=== PATIENT | female | born 1935 | race Caucasian/White ===

== ENCOUNTER 2017-05-30 10:25 | Inpatient (IN) ==
--- NOTE | 2017-05-30 10:28 | Emergency Department Note ---
Disposition Clinical Impression: Chest pain Qualifiers: Chest pain type: unspecified Qualified Code(s): R07.9 - Chest pain, unspecified ST elevation myocardial infarction (STEMI) Qualifiers: Involved coronary artery: LAD coronary artery Qualified Code(s): I21.02 - ST elevation (STEMI) myocardial infarction involving left anterior descending coronary artery Disposition: Admitted As Inpatient Condition: Fair General Adult HPI - General Chief complaint: ED Chest Pain Stated complaint: chest pain Time Seen by Provider: 05/30/17 10:27 - Related Data Home Medications Medication Instructions Recorded Confirmed No Known Home Drugs 05/30/17 05/30/17 Allergies Allergy/AdvReac Type Severity Reaction Status Date / Time ezetimibe [From Zetia] AdvReac Cramping Verified 05/30/17 10:58 of the Muscles fenofibrate [From Tricor] AdvReac Cramping Verified 05/30/17 10:58 of the Muscles rosuvastatin [From Crestor] AdvReac Cramping Verified 05/30/17 10:58 of the Muscles simvastatin AdvReac Cramping Verified 05/30/17 10:58 of the Muscles Course Vital Signs O2 Sat by Pulse Oximetry 99 05/30/17 10:37 Temperature 97.5 F L 05/30/17 15:59 Pulse Rate 76 05/30/17 18:00 Respiratory Rate 20 05/30/17 18:00 Blood Pressure 107/49 05/30/17 18:00 O2 Sat by Pulse Oximetry 96 05/30/17 18:00 Oxygen Delivery Oxygen Delivery Nasal Cannula Medical Decision Making - Lab Data Result diagrams: 05/30/17 10:36 05/30/17 10:36 Lab Results 05/30/17 05/30/17 05/30/17 Range/Units 10:36 10:36 10:36 WBC 7.8 (4.3-11.1) K/mcL RBC 4.63 (3.82-4.97) M/mcL Hgb 14.5 (11.5-15.4) g/dL Hct 44.0 (35.3-44.9) % MCV 95.0 (83.0-100.0) fL MCH 31.3 (28.0-33.3) pg MCHC 33.0 (31.6-35.5) g/dL RDW 12.3 (11.5-14.5) % Plt Count 198 (140-400) K/mcL MPV 11.6 (9.4-12.4) fL Immature Gran % 0.3 (0-4) % Seg Neutrophils % 49.6 % Lymphocytes % 40.9 % Monocytes % 7.9 % Eosinophils % 0.8 % Basophils % 0.5 % Neutrophils # 3.9 (1.6-8.9) K/mcL Lymphocytes # 3.2 (0.6-4.6) K/mcL Monocytes # 0.6 (0.0-1.3) K/mcL Eosinophils # 0.1 (0.0-0.6) K/mcL Basophils # 0.0 (0.0-0.2) K/mcL PT 11.9 (9.4-12.1) Seconds INR 1.1 APTT 26.4 (26.0-36.0) Seconds Sodium 138 (136-145) mEq/L Potassium 3.9 (3.5-5.1) mEq/L Chloride 103 (98-107) mEq/L Carbon Dioxide 24 (23-29) mEq/L BUN 17 (8-23) mg/dL Creatinine 0.69 (0.60-1.20) mg/dL Est GFR ( Amer) > 60 (> 60) Est GFR (Non-Af Amer) > 60 (> 60) BUN/Creatinine Ratio 25 (6-26) Glucose 184 H (70-105) mg/dL POC Glucose (58-89) Calculated Osmolality 292 (280-300) Calcium 9.6 (8.6-10.3) mg/dL Magnesium 2.2 (1.6-2.6) mg/dL Troponin I (< 0.04) ng/mL 05/30/17 05/30/17 Range/Units 10:36 11:06 WBC (4.3-11.1) K/mcL RBC (3.82-4.97) M/mcL Hgb (11.5-15.4) g/dL Hct (35.3-44.9) % MCV (83.0-100.0) fL MCH (28.0-33.3) pg MCHC (31.6-35.5) g/dL RDW (11.5-14.5) % Plt Count (140-400) K/mcL MPV (9.4-12.4) fL Immature Gran % (0-4) % Seg Neutrophils % % Lymphocytes % % Monocytes % % Eosinophils % % Basophils % % Neutrophils # (1.6-8.9) K/mcL Lymphocytes # (0.6-4.6) K/mcL Monocytes # (0.0-1.3) K/mcL Eosinophils # (0.0-0.6) K/mcL Basophils # (0.0-0.2) K/mcL PT (9.4-12.1) Seconds INR APTT (26.0-36.0) Seconds Sodium (136-145) mEq/L Potassium (3.5-5.1) mEq/L Chloride (98-107) mEq/L Carbon Dioxide (23-29) mEq/L BUN (8-23) mg/dL Creatinine (0.60-1.20) mg/dL Est GFR ( Amer) (> 60) Est GFR (Non-Af Amer) (> 60) BUN/Creatinine Ratio (6-26) Glucose (70-105) mg/dL POC Glucose 161 H (58-89) Calculated Osmolality (280-300) Calcium (8.6-10.3) mg/dL Magnesium (1.6-2.6) mg/dL Troponin I 0.09 H* (< 0.04) ng/mL Critical Care Time Critical Care Time: Yes Total Critical Care Time: 30 Attestation: The high probability of a clinically significant, sudden or life threatening deterioration of the [] system(s) required my full and direct attention, intervention and personal management. The aggregate critical care time was [] minutes. This time is in addition to time spent performing reported procedures but includes the following: [] Data Review and interpretation [] Patient assessment and monitoring of vital signs [] Documentation [] Medication orders and management Attestation Statement - Attestation Attestation: I examined this patient and my medical decision-making was reviewed with the Resident Physician. I agree with the documented findings, disposition and treatment plan as described except to the extent set forth below. [id number] time provided Patient arrives by EMS from home. She complains of chest pain that radiated to both arms. Associated nausea and vomiting. No previous history of coronary artery disease. She appears in no acute distress on exam. Family at bedside. Initial ECG shows non specific changes w/o STEMI pattern 10:48: The patient had ongoing chest pain. A repeat ECG was obtained. This does show ST segment elevation in leads V2 through V4. STEMI alert activated
[2017-05-30] MEDS ORDERED: Nitroglycerin 0.4 MG TAB.SUBL SL ONE (10:39)
[2017-05-30] MEDS ORDERED: Aspirin 81 MG TAB.CHEW PO STA (10:41)
--- NOTE | 2017-05-30 10:46 | Emergency Department Note ---
Disposition Clinical Impression: Chest pain Qualifiers: Chest pain type: unspecified Qualified Code(s): R07.9 - Chest pain, unspecified ST elevation myocardial infarction (STEMI) Qualifiers: Involved coronary artery: LAD coronary artery Qualified Code(s): I21.02 - ST elevation (STEMI) myocardial infarction involving left anterior descending coronary artery Disposition: Admitted As Inpatient Condition: Fair Time of Disposition: 11:03 Chest Pain HPI - General Chief Complaint: ED Chest Pain Stated Complaint: chest pain Time Seen by Provider: 05/30/17 10:27 Source: patient Mode of arrival: EMS Limitations: no limitations Vital Signs Reviewed: Yes Nursing Notes Reviewed: Yes - History of Present Illness HPI Narrative: Patient is an 81-year-old female who presents to [facility] ED with a chief complaint of chest pain. States this started around 9 AM this morning when she was sitting on the couch. States the pain is across her chest and down both arms. Admits to nausea and has one episode of vomiting while in our emergency department. Patient states she has always been pretty healthy and has not required any prescription medication. Family states they gave her 2 baby aspirin after she started having symptoms this morning. 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 Denies: dyspnea, fever Treatments prior to arrival chest pain: aspirin - Related Data Home Medications Medication Instructions Recorded Confirmed No Known Home Drugs 05/30/17 05/30/17 Allergies Allergy/AdvReac Type Severity Reaction Status Date / Time ezetimibe [From Zetia] AdvReac Cramping Verified 05/30/17 10:58 of the Muscles fenofibrate [From Tricor] AdvReac Cramping Verified 05/30/17 10:58 of the Muscles rosuvastatin [From Crestor] AdvReac Cramping Verified 05/30/17 10:58 of the Muscles simvastatin AdvReac Cramping Verified 05/30/17 10:58 of the Muscles All systems ED: reviewed and negative except as stated. Chest Pain PMH - Past Medical History Medical history: Reports: no medical history Physical Exam - General Limitations: no limitations General appearance: alert, anxious - Head Head exam: atraumatic, normocephalic, normal inspection - Eye Eye exam: Present: normal appearance, EOMI - ENT ENT exam: normal exam, normal oropharynx, mucous membranes moist - Neck Neck exam: Present: trachea midline - Chest Chest inspection: Present: normal inspection, symmetric chest wall rise - Respiratory Respiratory exam: Present: normal lung sounds bilaterally - Cardiovascular Cardiovascular exam: Present: regular rate, normal rhythm, normal heart sounds - Abdominal Exam Abdominal exam: Present: soft, Non-Tender. Absent: tenderness, distention, guarding, rebound, rigidity - Extremities Exam Extremities exam: Present: normal inspection, full ROM. Absent: tenderness, pedal edema - Back Exam Back exam: Present: normal inspection, full ROM. Absent: tenderness - Neurological Exam Neurological exam: Present: alert - Psychiatric Psychiatric exam: Present: normal affect, normal mood - Skin Skin exam: Present: warm, dry, intact, normal color Course Course Narrative: Patient seen and examined. Patient having active chest pain. Initial EKG shows what appears to be a new right bundle branch block compared with her prior EKG. Cardiopulmonary workup initiated. Another 2 baby aspirin given. One sublingual nitroglycerin given. While standing in the room, I noted what appeared to be some ST elevation on the monitor. I asked for a repeat EKG which shows elevation in V2 through V4. A STEMI alert was initiated. Patient became nauseated and vomited once. I discussed with the home paraprofessional Dr. Dye and patient will be taken to the [facility]. - Reevaluation(s) Reevaluation #1: Labs showed trop 0.09. No other abnormalities. Pt taken to cath lab technologist in stable condition. Time: 11:30 Vital Signs O2 Sat by Pulse Oximetry 99 05/30/17 10:37 Temperature 97.5 F L 05/30/17 15:59 Pulse Rate 76 05/30/17 18:00 Respiratory Rate 20 05/30/17 18:00 Blood Pressure 107/49 05/30/17 18:00 O2 Sat by Pulse Oximetry 96 05/30/17 18:00 Oxygen Delivery Oxygen Delivery Nasal Cannula Chest Pain - Medical Records Medical records reviewed: Yes I reviewed the patient's medical records. - Lab Data Lab results reviewed: Yes I reviewed the patient's lab results. Result diagrams: 05/30/17 10:36 05/30/17 10:36 Lab Results 05/30/17 05/30/17 05/30/17 Range/Units 10:36 10:36 10:36 WBC 7.8 (4.3-11.1) K/mcL RBC 4.63 (3.82-4.97) M/mcL Hgb 14.5 (11.5-15.4) g/dL Hct 44.0 (35.3-44.9) % MCV 95.0 (83.0-100.0) fL MCH 31.3 (28.0-33.3) pg MCHC 33.0 (31.6-35.5) g/dL RDW 12.3 (11.5-14.5) % Plt Count 198 (140-400) K/mcL MPV 11.6 (9.4-12.4) fL Immature Gran % 0.3 (0-4) % Seg Neutrophils % 49.6 % Lymphocytes % 40.9 % Monocytes % 7.9 % Eosinophils % 0.8 % Basophils % 0.5 % Neutrophils # 3.9 (1.6-8.9) K/mcL Lymphocytes # 3.2 (0.6-4.6) K/mcL Monocytes # 0.6 (0.0-1.3) K/mcL Eosinophils # 0.1 (0.0-0.6) K/mcL Basophils # 0.0 (0.0-0.2) K/mcL PT 11.9 (9.4-12.1) Seconds INR 1.1 APTT 26.4 (26.0-36.0) Seconds Sodium 138 (136-145) mEq/L Potassium 3.9 (3.5-5.1) mEq/L Chloride 103 (98-107) mEq/L Carbon Dioxide 24 (23-29) mEq/L BUN 17 (8-23) mg/dL Creatinine 0.69 (0.60-1.20) mg/dL Est GFR ( Amer) > 60 (> 60) Est GFR (Non-Af Amer) > 60 (> 60) BUN/Creatinine Ratio 25 (6-26) Glucose 184 H (70-105) mg/dL POC Glucose (58-89) Calculated Osmolality 292 (280-300) Calcium 9.6 (8.6-10.3) mg/dL Magnesium 2.2 (1.6-2.6) mg/dL Troponin I (< 0.04) ng/mL 05/30/17 05/30/17 Range/Units 10:36 11:06 WBC (4.3-11.1) K/mcL RBC (3.82-4.97) M/mcL Hgb (11.5-15.4) g/dL Hct (35.3-44.9) % MCV (83.0-100.0) fL MCH (28.0-33.3) pg MCHC (31.6-35.5) g/dL RDW (11.5-14.5) % Plt Count (140-400) K/mcL MPV (9.4-12.4) fL Immature Gran % (0-4) % Seg Neutrophils % % Lymphocytes % % Monocytes % % Eosinophils % % Basophils % % Neutrophils # (1.6-8.9) K/mcL Lymphocytes # (0.6-4.6) K/mcL Monocytes # (0.0-1.3) K/mcL Eosinophils # (0.0-0.6) K/mcL Basophils # (0.0-0.2) K/mcL PT (9.4-12.1) Seconds INR APTT (26.0-36.0) Seconds Sodium (136-145) mEq/L Potassium (3.5-5.1) mEq/L Chloride (98-107) mEq/L Carbon Dioxide (23-29) mEq/L BUN (8-23) mg/dL Creatinine (0.60-1.20) mg/dL Est GFR ( Amer) (> 60) Est GFR (Non-Af Amer) (> 60) BUN/Creatinine Ratio (6-26) Glucose (70-105) mg/dL POC Glucose 161 H (58-89) Calculated Osmolality (280-300) Calcium (8.6-10.3) mg/dL Magnesium (1.6-2.6) mg/dL Troponin I 0.09 H* (< 0.04) ng/mL - Radiology Data Radiology results reviewed: Yes I reviewed the patient's radiology results. - EKG Data EKG attestation: Yes I reviewed and interpreted this EKG. EKG results narrative: EKG done at 1032 shows normal sinus rhythm with a rate of 64 bpm. Incomplete right bundle branch block present. Left axis deviation. No ST elevation or depression. EKG done at 1046 shows normal sinus rhythm with a rate of [address] elevation noted in leads V2 through V4. Left axis deviation. Heart Score - Score History: Highly Suspicious Age: Greater than 65 Risk Factors: No risk factors known
[2017-05-30] MEDS ORDERED: Ondansetron 4 MG/2 ML VIAL IVP PRN ×2 (10:50→14:10)
[2017-05-30] MEDS ORDERED: *HR* Ticagrelor 90 MG TABLET ONE (10:50)
[2017-05-30] MEDS ORDERED: 0.9 % Sodium Chloride 1,000 ML ONE ×2 (10:50→11:15)
[2017-05-30] MEDS ORDERED: Aspirin 81 MG TAB.CHEW ONE (10:50)
[2017-05-30] MEDS ORDERED: *HR* Heparin 5,000 UNIT/ML VIAL ONE (10:50)
[2017-05-30] MEDS ORDERED: *HR* Morphine 2 MG/ML SYRINGE IVP ONE ×2 (10:51→11:12)
[2017-05-30 10:53] LABS: Basophils % 0.5 %; Eosinophils # 0.1 K/mcL (0.0-0.6); Eosinophils % 0.8 %; Hemoglobin 14.5 g/dL (11.5-15.4); Immature Granulocytes % 0.3 % (0-4); Lymphocytes # 3.2 K/mcL (0.6-4.6); Lymphocytes % 40.9 %; Mean Corpuscular Hemoglobin 31.3 pg (28.0-33.3); Mean Platelet Volume 11.6 fL (9.4-12.4); Monocytes # 0.6 K/mcL (0.0-1.3); Monocytes % 7.9 %; Neutrophils # 3.9 K/mcL (1.6-8.9); Platelet Count 198 K/mcL (140-400); Red Blood Count 4.63 M/mcL (3.82-4.97); Red Cell Distribution Width 12.3 % (11.5-14.5); Segmented Neutrophils % 49.6 %
[2017-05-30] MEDS ORDERED: *HR* Heparin 5,000 UNIT/ML VIAL IVP ONE (10:53)
[2017-05-30] MEDS ORDERED: *HR* Heparin 5,000 UNIT/ML VIAL IVP PRN ×2 (10:53)
[2017-05-30] MEDS ORDERED: 0.9 % Sodium Chloride 1,000 ML IVC ONE (10:55)
[2017-05-30 11:00] LABS: Activated Partial Thrombo Time 26.4 Seconds (26.0-36.0)
[2017-05-30] MEDS ORDERED: Heparin 25,000 UNIT/500 ML D5W 25,000 UNIT/500 ML BAG IVC SCH (11:00)
[2017-05-30 11:08] LABS: BUN/Creatinine Ratio 25 (6-26); Blood Urea Nitrogen 17 mg/dL (8-23); Calcium 9.6 mg/dL (8.6-10.3); Carbon Dioxide 24 mEq/L (23-29); Chloride 103 mEq/L (98-107); Glucose 184 mg/dL (70-105); Magnesium 2.2 mg/dL (1.6-2.6); Osmolality,Calculated 292 (280-300); Potassium 3.9 mEq/L (3.5-5.1); Sodium 138 mEq/L (136-145); eGFR For African Americans > 60 (> 60); eGFR For Non-African Americans > 60 (> 60)
[2017-05-30] MEDS ORDERED: Heparin 1,000 UNITS/500 mL 500 ML ONE (11:15)
[2017-05-30] MEDS ORDERED: *HR* Heparin 10,000 UNIT/10 ML VIAL ONE (11:15)
[2017-05-30] MEDS ORDERED: *HR* Midazolam HCl 2 MG/2 ML VIAL ONE (11:16)
[2017-05-30] MEDS ORDERED: *HR* FentaNYL (PF) 100 MCG/2 ML VIAL ONE (11:17)
[2017-05-30] MEDS ORDERED: ISOVUE-370 200 ML INFUS..BTL IV ONE (11:24)
[2017-05-30] MEDS ORDERED: Nitroglycerin 1,000 MCG/10 ML VIAL IV ONE (11:27)
[2017-05-30 11:35] LABS: INR 1.1; Prothrombin Time 11.9 Seconds (9.4-12.1)
--- NOTE | 2017-05-30 11:42 | Cardiology History & Physical ---
Date of Encounter: 05/30/17 Time of Encounter: 11:20 Assessment and Plan (1) ST elevation myocardial infarction (STEMI) Current Visit: Yes Status: Acute The assessment and plan as outlined above was discussed with the patient and/or family members who expressed understanding and agreement. All questions were answered. Pt repeat EKG shows acute st segment elevation ant leads compared to initial EKG , discussed risks, benefits LHC with and daughter at bedside, pt is sedated, will proceed with emergent LHC/poss. Pre load with Brillinta 180 mg po now. Qualifiers: Involved coronary artery: LAD coronary artery Qualified Code(s): I21.02 - ST elevation (STEMI) myocardial infarction involving left anterior descending coronary artery Code(s): I21.3 - ST elevation (STEMI) myocardial infarction of unspecified site SNOMED Code(s): 367088114 (2) Hyperlipidemia Current Visit: Yes Status: Chronic The assessment and plan as outlined above was discussed with the patient and/or family members who expressed understanding and agreement. All questions were answered. Pt has failed multiple medical tx for hyperlipidemia, intolerant to statins, may be a candidate for Rapatha Qualifiers: Hyperlipidemia type: mixed hyperlipidemia Qualified Code(s): E78.2 - Mixed hyperlipidemia History of Present Illness Chief complaint: chest pain HPI: Ms. Mcgovern is a 81 year old female who presented to the ER with complains of sudden onset of 10/10 mid sternal chest pain, radiating into both arms, starting while at rest, lasting fifteen minutes before she callled the squad, Chest pain was initially reduced from 10/10 to 5/10 with one sl ntg. She is still experiencing 4/10 chest pressure, weight like sensation, which has improved but not resolved with medical tx. Initial EKG showed non-specific ST T wave changes, second EKG shows new ST segment elevation V2 through V 5, consistent with acute ant HI. Risks and benefits discussed, recommend emergent LHC/possible PCI as primary tx for STEMI, pt agrees to proceed. She has known risk factors, including hyperlipidemia,. 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) Medical history: no medical history, hyperlipidemia Psychiatric history: no psych history - Social History Smoking Status: Never smoker Smokeless Tobacco Status: No Alcohol use: none Drug use: none Medications and Allergies No Known Home Drugs 05/30/17 [History] 3 Allergy/AdvReac Type Severity Reaction Status Date / Time ezetimibe [From Zetia] AdvReac Cramping Verified 05/30/17 10:58 of the Muscles fenofibrate [From Tricor] AdvReac Cramping Verified 05/30/17 10:58 of the Muscles rosuvastatin [From Crestor] AdvReac Cramping Verified 05/30/17 10:58 of the Muscles simvastatin AdvReac Cramping Verified 05/30/17 10:58 of the Muscles ROS unobtainable: due to mental status (Pt received 10 mg morphine, very sleepy. ) All Systems Review: A 10-system review of systems was performed and is negative for pertinent findings except as documented above in the HPI. Physical Examination Vital Signs, Last 4 Hours Temp Pulse Resp BP Pulse Ox 05/30/17 11:26 66 18 153/75 97 05/30/17 11:08 53 16 139/75 98 05/30/17 10:59 98 05/30/17 10:57 70 30 141/80 97 05/30/17 10:38 97.6 F 66 28 164/93 99 05/30/17 10:37 99 General: Conversant, Other (mild distresss secondary to chest pain. very sedated , arouses easily, unable to answer questions. ) HEENT: Atraumatic, Normocephaly Neck: No JVD Cardiac: Reg Rate and Rhythm, Normal S1 and S2 Lungs: Normal Breath Sounds Neuro: No focal deficits noted, Other (very somnolent, awakens, follows commands , drifts back to sleep. ) Abdomen: Soft, Non-Tender Skin: No rashes noted on visualized skin Musculoskeletal: No Chest Wall Tenderness Extremities: No Clubbing, No Cyanosis, No Edema, Normal Pulses Results 05/30/17 10:36 05/30/17 10:36 Lab Results 05/30/17 05/30/17 05/30/17 10:36 10:36 10:36 WBC 7.8 Hgb 14.5 Hct 44.0 Plt Count 198 APTT 26.4 Sodium 138 Potassium 3.9 Chloride 103 Carbon Dioxide 24 BUN 17 Creatinine 0.69 Glucose 184 H Calcium 9.6 Magnesium 2.2 Troponin I 05/30/17 10:36 WBC Hgb Hct Plt Count APTT Sodium Potassium Chloride Carbon Dioxide BUN Creatinine Glucose Calcium Magnesium Troponin I 0.09 H* - EKG Interpretation EKG results cardiology: personally reviewed
[2017-05-30] MEDS ORDERED: Ondansetron 4 MG/2 ML VIAL ONE ×2 (12:42→14:14)
--- NOTE | 2017-05-30 12:44 | Invasive Diagnostic Lab Proc ---
Name: Sonam Mcgovern Date of Study: 05/30/2017 Date: 1935 Ht: 65.0in Medical Record#: [id number] Age: 81 Wt: 125.66lb Gender: Female BSA: 1.62 Order #: [id number] BMI: 20.94 Physicians Procedure Physician: Dereje Dye DO Referring MD: Referring MD: Staff Name Position Time In Jacqui Araujo RN Monitor 11:45 AM Shaina Abel RT (R) Scrub 11:45 AM Nadine Chang RN Crew Boat Operator 11:45 AM Indications Indication STEMI Procedures Performed Procedure PRQ CARD REVASC CA 1 VSL Pre-Procedure Checklist Informed consent is complete signed and on chart. H&P is on chart. ID band is on and ID verified with patient. Patient NPO for procedure The procedure was described for the patient and questions were answered. ECG is on chart. Plan of Care Patient will tolerate the procedure without complications. Adequate level of comfort will be maintained. Hemodynamics will remain stable Patient will recover from procedure without complications. Respiratory function will be maintained. Cardiac rhythm will remain stable. Patient temperature will be maintained. Patient and/or family have verbalized understanding of the procedure. Patient Education Chief Complaint/Reason for Test: Cardiac Cath Developmental Category: Geriatric (65+ years) Developmentally Appropriate for Age: Yes Learning Barriers: None Education Needs: Procedure Education Method: Verbal Information Taught: Cardiac Cath Educational Evaluation: Able to repeat information Intravenous Access Time IV Size Location DC'd Fluid/Drip Rate Units RN 11:53 AM 18g 1 1/4" Patent On Arrival Rt Antecubital 0.9NaCl 100 ml/hr Nadine Chang RN 11:53 AM 20g 1 1/4" Patent On Arrival Lt Wrist Allergies simvastatin fenofibrate ezetimibe rosuvastatin Vital Signs Time BP (mmHg) HR (bpm) O2 Sat. RR (bpm) LOC 11:46 AM / % 4 = Oriented but drowsy 11:46 AM / % 3 = Answers simple questions/follows commands 12:01 PM / % 3 = Answers simple questions/follows commands 11:41 AM 126 / 81 75 93 % 11:47 AM 129 / 76 71 96 % 21 11:52 AM 113 / 75 65 95 % 22 11:56 AM 122 / 82 72 96 % 23 12:01 PM 122 / 82 80 96 % 11 12:06 PM 116 / 65 74 95 % 20 12:11 PM 124 / 77 77 96 % 22 12:16 PM 134 / 83 80 94 % 22 12:21 PM 131 / 74 77 95 % 22 Procedural Medications Time Medication Dose Units Method Given By 11:46 AM Oxygen 3 L/min nasal cannula Nadine Chang RN 11:48 AM Lidocaine 2% 10 ml Subcutaneous Dereje Dye DO ASA Classification: CLASS II- Mild systemic disease (i.e. well-controlled diabetes, hypertension, asthma, cigarette smoking) Shelley Score Preprocedure Postprocedure Activity 2- Moves 4 extremities sustained head lift Activity 2- Moves 4 extremities sustained head lift Circulation 2- SBP +/= 20 points of pre-anesthetic level Circulation 2- SBP +/= 20 points of pre-anesthetic level Consciousness 1- Responds to verbal stimuli drowsy Consciousness 2- Awake and alert oriented x 3 O2 Saturation 1- Needs O2 inhalation to maintain O2 saturation of 90% O2 Saturation 1- Needs O2 inhalation to maintain O2 saturation of 90% Respiratory 2- Able to deep breathe and cough well Respiratory 2- Able to deep breathe and cough well Total Score 8 Total Score 9 Contrast Agent: Isovue Diagnostic Contrast: 125 ml Total Contrast: 125 ml Fluoro Dose: 588 mGy Activated Clotting Time Time Seconds to Clot 11:59 AM 254 Procedure Log Time Note Enter By 11:18 AM Case Start 11:18 AM CathStat 11:40 AM Vitals capture started with the following parameters, Patient=Adult, Interval=5 min, Initial Gezhvaqk=568 mmHg, Deflation Rate=5 mmHg, Cuff placed on Right Arm 11:41 AM HR=75 bpm, BFSH=816/81 mmhg, SpO2=93.0 % 11:42 AM Recorded ECG: HR=66 Condition=Condition 1 11:44 AM Pressure channel 2 zeroed. 11:45 AM Pt arrived to casting house laborer 2 at 11:45 [email or web address] 11:45 AM Jacqui Araujo RN Position: Monitor Time in: 11:45 [email or web address] 11:45 AM Shaina Abel RT (R) Position: Scrub Time in: 11:45 [email or web address] 11:45 AM Nadine Chang RN Position: Crew Boat Operator Time in: 11:45 [email or web address] 11:45 AM Patient charges- Angio tray pack, Navilyst 3mm J, Pulse Oximetry and ACIST tubing and transducer [email or web address] 11:45 AM Case Delayed No [email or web address] 11:46 AM Hair removed from procedure site in procedure lab using clippers. Bilateral groin prepped with Chloraprep by Shaina Abel RT (R), then patient was draped. Skin intact. [email or web address] 11:46 AM Physician arrived 11:46 [email or web address] 11:46 AM ASA Class CLASS II- Mild systemic disease (i.e. well-controlled diabetes, hypertension, asthma, cigarette smoking) [email or web address] 11:46 AM Mervat completed [email or web address] 11:46 AM Procedure start :46 [email or web address] 11:46 AM Time: :46 Oxygen on at 3 L/min per nasal cannula by Nadine Chang RN [email or web address] 11:46 AM Time: 11:46 Patient comfortable and pain free: Yes [email or web address] 11:46 AM Time: 11:46LOC: 4 = Oriented but drowsy [email or web address] 11:46 AM Clinical Presentation: STEMI or equivalent [email or web address] 11:46 AM Time out performed according to hospital policy [email or web address] 11:46 AM in ED patient received 10mg IV Morphine, 3600units IV Heparin, 4mg IV Zofran, 180mg PO Brilinta, 324mg PO Aspirin [email or web address] 11:47 AM HR=71 bpm, AJBP=555/76 mmhg, SpO2=96.0 %, Resp=21 B/min, Comment=STEMI 11:48 AM Time: 11:48 10 ml Lidocaine 2% to right groin Subcutaneous Given by Dereje Dye DO [email or web address] 11:48 AM pt very sleepy upon arrival to lab, states she is having "some pain" [email or web address] 11:50 AM Access obtained by percutaneous puncture. 6Fr 10cm Terumo Laura sheath placed in right Femoral artery. [id number] [email or web address] 11:50 AM 6Fr FR 4 catheter inserted over the wire DNC [email or web address] 11:51 AM 0.035 145cm Navilyst 3mmJ wire [id number] [email or web address] 11:51 AM Recorded Pressure: LV, LV, HR=91, Condition=Condition 1 (Left Ventricle) LV -20/-20/-20, (Left Ventricle) LV 121/14/20 11:52 AM HR=65 bpm, JYHY=473/75 mmhg, SpO2=95 %, Resp=22 B/min 11:52 AM Bolus angiogram of left Ventricle complete: ml/sec for a total of 10 mls [email or web address] 11:53 AM RCA angiography performed in multiple views. [email or web address] 11:53 AM Catheter removed [email or web address] 11:53 AM 6Fr XB LAD 3.5 Cordis guide catheter was used to cannulate the PCI vessel successfully. reused? No [email or web address] 11:53 AM Inflation device was opened. [email or web address] 11:53 AM Lesion found in Mid RCA. Pre Stenosis: 80 Pre RAYMUNDO Flow: [email or web address] 11:55 AM Guide catheter removed intact. [email or web address] 11:56 AM 6Fr JL4 Cordis guide catheter was used to cannulate the PCI vessel successfully. reused? No [email or web address] 11:56 AM HR=72 bpm, STYE=735/82 mmhg, SpO2=96.0 %, Resp=23 B/min 11:57 AM LCA angiography performed in multiple views. [email or web address] 11:57 AM Recorded Pressure: Ao, Ao, HR=73, Condition=Condition 1 (Aorta) Ao -20/-20/-20, (Aorta) Ao 139/67/97 11:57 AM Right Coronary, Right Posterior Descending Arteries with Right Posterolateral and Acute Marginal branches with 80 % stenosis. If graft is supplying this area, 0 % stenosis [email or web address] 11:58 AM Lesion found in Proximal LAD. Pre Stenosis: 70 Pre RAYMUNDO Flow: [email or web address] 11:58 AM Lesion found in Mid LAD. Pre Stenosis: 90 Pre RAYMUNDO Flow: [email or web address] 11:59 AM Proximal Left Anterior Descending Coronary Artery with 70% stenosis. If graft is supplying this territory, 0 % stenosis. [email or web address] 11:59 AM Mid/Distal Left Anterior Descending Coronary Artery and diagonal branches with 90% stenosis. If graft is supplying this area, 0 % stenosis [email or web address] 11:59 AM At 11:59 the ACT was 254 seconds. [email or web address] 12:00 PM 2.25mm x 12mm Synergy drug-eluting stent across target lesion- successful Lot #[id number] [email or web address] 12:00 PM Recorded Pressure: Ao, Ao, HR=84, Condition=Condition 1 (Aorta) Ao -20/-20/-20, (Aorta) Ao 147/72/105 12:01 PM HR=80 bpm, IEVF=855/82 mmhg, SpO2=96.0 %, Resp=11 B/min 12:01 PM Time: 11:46 Patient comfortable and pain free: Yes [email or web address] 12:01 PM Time: 11:46LOC: 3 = Answers simple questions/follows commands [email or web address] 12:03 PM Stent deployed @ 12 kiay for 27 seconds [email or web address] 12:04 PM Recorded Pressure: Ao, Ao, HR=80, Condition=Condition 1 (Aorta) Ao -20/-20/-20, (Aorta) Ao 136/74/101 12:04 PM Stent balloon reinflated @ 10 kiya for 16 seconds [email or web address] 12:04 PM Stent delivery system removed intact. [email or web address] 12:06 PM HR=74 bpm, CXYP=765/65 mmhg, SpO2=95.0 %, Resp=20 B/min 12:07 PM 2.25mm x 16mm Synergy drug-eluting stent across target lesion- successful Lot #[id number] [email or web address] 12:09 PM Stent deployed @ 16 kiya for 17 seconds [email or web address] 12:10 PM Stent balloon reinflated @ 16 kiya for 10 seconds [email or web address] 12:11 PM HR=77 bpm, HHFZ=215/77 mmhg, SpO2=96.0 %, Resp=22 B/min, Comment=STEMI 12:14 PM 2.25mm x 8mm Synergy drug-eluting stent across target lesion- successful Lot #[id number] [email or web address] 12:15 PM Recorded Pressure: Ao, Ao, HR=80, Condition=Condition 1 (Aorta) Ao -20/-20/-20, (Aorta) Ao 158/81/114 12:15 PM Stent deployed @ 16 kiya for 15 seconds [email or web address] 12:16 PM HR=80 bpm, PRFZ=192/83 mmhg, SpO2=94.0 %, Resp=22 B/min 12:16 PM Time: 12:01 Patient comfortable and pain free: Yes [email or web address] 12:16 PM Time: 12:01LOC: 3 = Answers simple questions/follows commands [email or web address] 12:16 PM Stent balloon reinflated @ 16 kiya for 10 seconds [email or web address] 12:17 PM Stent balloon reinflated @ 18 kiya for 20 seconds [email or web address] 12:17 PM Stent delivery system removed intact. [email or web address] 12:19 PM Guide catheter removed intact. [email or web address] 12:19 PM Guide wire removed intact. [email or web address] 12:19 PM Procedure completed at 12:19 [email or web address] 12:20 PM Did you address RAYMUNDO flow and Dominance? Yes [email or web address] 12:20 PM Coronary Dominance: right [email or web address] 12:21 PM Sign out completed: Radiation Dose 588.01 mGy Fluoro Time: 9 Isovue 370 - 200ml contrast 125 ml given by Dereje Dye DO. Complications: NoneCardiac Rehab Consult needed: YesConfirmed administered medications: Yes [email or web address] 12:21 PM HR=77 bpm, UGBD=702/74 mmhg, SpO2=95 %, Resp=22 B/min 12:22 PM Isovue 370 - 200ml,1 Bottle(s) used. [email or web address] 12:22 PM Arterial sheath pulled, Mynx closure device used and was Successful [id number] S/N. [email or web address] 12:23 PM Estimated Blood Loss: less than 20cc [email or web address] 12:23 PM Post ECG NSR [email or web address] 12:23 PM Post Blood Pressure 131/74 [email or web address] 12:23 PM 12:23 Post Pulses Bilateral DP & PT 1+ [email or web address] 12:23 PM Information taught Cardiac Cath, PCI, and Mynx [email or web address] 12:23 PM Education needs Procedure, Plan of Care, and Responsibilities of Patient in Care [email or web address] 12:23 PM Learning barriers :None [email or web address] 12:23 PM Education Methods Verbal [email or web address] 12:23 PM Education evaluation Able to repeat information [email or web address] 12:24 PM Report given to Lesly SHEPHERD Pt taken to ICU Room #7. 12:24 [email or web address] 12:24 PM Plavix, Effient or Brilinta given Yes [email or web address] 12:27 PM Site status No bleeding/hematoma - Rt Groin as reported by Shaina Abel RT (R) at 12:26 [email or web address] 12:27 PM Opsite applied [email or web address] 12:27 PM Delay to floor No [email or web address] 12:27 PM Family placed in consult room. [email or web address] 12:30 PM Patient out of room: 12:30 [email or web address] Complications Complication None Hemodynamics Pressures Site Systolic/A Wave Diastolic/V Wave Mean LV -20 -20 -20 LV 121 14 20 AO -20 -20 -20 AO 139 67 97 AO -20 -20 -20 AO 147 72 105 AO -20 -20 -20 AO 136 74 101 AO -20 -20 -20 AO 158 81 114 Post Procedure Information Blood Pressure: 131/74 mmHg Rhythm: NSR Post procedural instructions were given Closure Device Time Device Success/Fail 05/30/2017 12:27:00 PM MynxGrip Successful Site Checks Time Location Status Staff Sheath In? Note 12:26 PM Rt Groin No bleeding/hematoma Shaina Abel RT (R) Pulses Time Site Pre-Procedure Post-Procedure Note 05/30/2017 11:54:00 AM Bilateral DP & PT 1+ 12:23:00 PM Bilateral DP & PT 1+ Updated by Jacqui Araujo RN on 05/30/2017 12:37:44 PM electronically signed on 05/30/2017 12:38:12 PM with status of Final
[2017-05-30] MEDS: 0.9 % Sodium Chloride 1,000 ML IVC SCH ×2 (14:52→23:53)
[2017-05-30] MEDS ORDERED: *HR* Promethazine 25 MG/ML VIAL ONE (21:19)
[2017-05-30] MEDS: *HR* Ticagrelor 90 MG TABLET PO SCH (21:24)
[2017-05-30] MEDS: *HR* Promethazine 25 MG/ML VIAL IVP PRN (21:25)
--- NOTE | 2017-05-30 22:31 | Pulmonology Consult Note ---
<LylesSven Jesus - Last Filed: 05/31/17 01:58> Date of Encounter: 05/31/17 Time of Encounter: 01:58 Assessment and Plan (1) ST elevation myocardial infarction (STEMI) Current Visit: Yes Status: Acute ST elevation [place] with troponin 0.09. Cardiac risk factors: age. Per cardiology: aspirin, brilanta coreg Patient on room air, vitals stable and in normal range. No complaints at this time. Will continue to monitor. Qualifiers: Involved coronary artery: LAD coronary artery Qualified Code(s): I21.02 - ST elevation (STEMI) myocardial infarction involving left anterior descending coronary artery History of Present Illness Consult date: 05/30/17 Requesting physician: Dereje Dye Chief complaint: chest pain History of present illness: Mrs. Mcgovern. an 81yo female, presents from home for evaluation of chest pain while at rest. Described as a heaviness radiating across her chest and down both arms. Associated with nausea and vomiting. Improved from 10/10 to 5/10 with SL nitro x1. PMH: none Medications: none EKG showed ST elevation in ahterior leads. Rt femoral LHC performed with stent to both proximal and mid LAD. She is in the ICU s/p hearth cath with critical care consult for evaluation and post-cath medical management. Past Med Surg Social Fam HX - Past Medical History Medical history: no medical history Psychiatric history: no psych history - Social History Smoking Status: Never smoker Smokeless Tobacco Status: No Alcohol use: none Drug use: none Medications and Allergies No Known Home Drugs 05/30/17 [History] 3 Allergy/AdvReac Type Severity Reaction Status Date / Time ezetimibe [From Zetia] AdvReac Cramping Verified 05/30/17 10:58 of the Muscles fenofibrate [From Tricor] AdvReac Cramping Verified 05/30/17 10:58 of the Muscles rosuvastatin [From Crestor] AdvReac Cramping Verified 05/30/17 10:58 of the Muscles simvastatin AdvReac Cramping Verified 05/30/17 10:58 of the Muscles All Systems: A 10-system review of systems was performed and is negative for pertinent findings except as documented above in the HPI. - Constitutional Constitutional: no anorexia, no chills, no fever(s), no headache(s), no weakness - Cardiovascular Cardiovascular: no chest pain, no diaphoresis, no dyspnea, no edema, no irregular heart rhythm, no leg edema, no lightheadedness - Respiratory Respiratory: no cough, no dyspnea, no hemoptysis, no wheezing - Gastrointestinal Gastrointestinal: no abdominal pain, no diarrhea, no heartburn, no hematemesis, no hematochezia, no melena, no nausea, no vomiting - Neurological Neurological: no confusion, no numbness, no tingling Physical Examination Vital Signs: Vital Signs, Last 4 Hours Temp Pulse Resp BP Pulse Ox 05/30/17 21:11 97.6 F 05/30/17 21:05 77 16 110/73 93 05/30/17 20:30 82 16 119/83 97 05/30/17 19:20 76 18 111/81 97 General appearance: no acute distress, alert, asleep (easily awoken) Eyes: nonicteric ENT: oropharynx moist Neck: supple Effort: normal Inspection: normal Auscultation: bilateral: clear Cardiovascular: regular rate and rhythm Gastrointestinal: normoactive bowel sounds, soft, tender, non-distended Integumentary: normal Extremities: no cyanosis, no edema, no clubbing, pink and warm, pulses normal Musculoskeletal: no deformities normal mental status, non-focal exam, pupils equal and round mood appropriate Results - Laboratory Findings CBC and BMP: 05/30/17 10:36 05/30/17 10:36 PT/INR, D-dimer PT 11.9 Seconds (9.4-12.1) 05/30/17 10:36 Abnormal lab findings: Abnormal lab results Glucose 184 mg/dL (70-105) H 05/30/17 10:36 POC Glucose 166 (58-89) H 05/30/17 12:53 Troponin I 0.09 ng/mL (< 0.04) H* 05/30/17 10:36 - Diagnostic Findings Chest x-ray: report reviewed, image reviewed - Clinical Findings Intake & Output: Intake & Output 05/30/17 05/30/17 05/30/17 07:59 15:59 23:59 Output Total 100 / 100 650 / 650 Balance -100 / -100 -650 / -650 Consult Discharge Plan - Plan Referrals: Kateryna Aldridge, ANESTHESIOLOGY FELLOW [Primary Care Provider] - <Coleman Wild - Last Filed: 05/31/17 21:29> Date of Encounter: 05/31/17 All Systems: A 10-system review of systems was performed and is negative for pertinent findings except as documented above in the HPI. Physical Examination Vital Signs: Vital Signs, Last 4 Hours Temp Pulse Resp BP Pulse Ox 05/31/17 12:28 99.5 F 05/31/17 11:00 76 14 118/49 97 05/31/17 09:00 84 12 113/69 96 Results - Laboratory Findings CBC and BMP: 05/31/17 05:14 05/31/17 05:14 PT/INR, D-dimer PT 11.9 Seconds (9.4-12.1) 05/30/17 10:36 Abnormal lab findings: Abnormal lab results Chloride 108 mEq/L (98-107) H 05/31/17 05:14 Glucose 131 mg/dL (70-105) H 05/31/17 05:14 POC Glucose 166 (58-89) H 05/30/17 12:53 Calcium 8.5 mg/dL (8.6-10.3) L 05/31/17 05:14 Troponin I 0.09 ng/mL (< 0.04) H* 05/30/17 10:36 - Clinical Findings Intake & Output: Intake & Output 05/30/17 05/31/17 05/31/17 23:59 07:59 15:59 Intake Total 1000 / 1000 50 / 50 60 / 60 Output Total 650 / 650 250 / 250 200 / 200 Balance 350 / 350 -200 / -200 -140 / -140 Weight 56.3 kg - Attending Attestation I saw and evaluated this patient and my medical decision-making was reviewed with the Resident Physician. I agree with the documented findings, disposition and treatment plan as described except to the extent set forth below. We independently had [id number] contact with the patient Patient seen and examined at bedside Labs, radiology, chart personally reviewed. Management was reviewed during multidisciplinary critical care rounds. AIRCRAFT TECHNICIAN:Patient is conscious oriented times x 3 Pulm: Patient CXR shows no acute process , patient has acute hypoxic respiratory failure most likely due to pulmonary vascular congestion with LVEF in ventriculogram is 40% will wean O2 supplementation as tolerated Cards:STEMI had stent , cardiac medication regimen according to cardiology FEN-GI: Cardiac diet . Renal:Labs and UOP reviewed ID: No acute issues Heme/Onc: Labs reviewed Endo: Glucose Monitored Integ/MSK: Skin Care per routine ICU Nursing Protocol to prevent ulcers. Lines: All lines examined without evidence of infection : Dispo: Transfer to stepdown according to cardiology CODE:Full Code
[2017-05-30 23:32] LABS: HDL Cholesterol 52 mg/dL (40-59); LDL Cholesterol,Direct 173 mg/dL (75-193); Triglycerides 69 mg/dL (< 150)
--- NOTE | 2017-05-31 04:04 | Pulmonology Progress Note ---
<Sven Lyles - Last Filed: 05/31/17 06:11> Date of Encounter: 05/31/17 Time of Encounter: 06:13 Assessment and Plan (1) Chest pain Current Visit: Yes Status: Acute Secondary to acute STEMI. Qualifiers: Chest pain type: unspecified Qualified Code(s): R07.9 - Chest pain, unspecified (2) ST elevation myocardial infarction (STEMI) Current Visit: Yes Status: Acute ST elevation [place] with initial troponin 0.09. Cardiac risk factors: age, HLD [facility] 05/30: LVEF 40%. MYAH to both mid and proximal LAD. Per cardiology: aspirin, brilanta coreg Patient on room air, vitals stable and in normal range. No complaints at this time. Will continue to monitor. Qualifiers: Involved coronary artery: LAD coronary artery Qualified Code(s): I21.02 - ST elevation (STEMI) myocardial infarction involving left anterior descending coronary artery (3) Hyperlipidemia Current Visit: Yes Status: Chronic Reported to be intolerant of statins. No home medications. Agree with consideration for Raphtha. Qualifiers: Hyperlipidemia type: mixed hyperlipidemia Qualified Code(s): E78.2 - Mixed hyperlipidemia Subjective Interval history: Mrs. Mcgovern. an 81yo female, presents from home for evaluation of chest pain while at rest. Described as a heaviness radiating across her chest and down both arms. Associated with nausea and vomiting. Improved from 10/10 to 5/10 with SL nitro x1. EKG showed ST elevation in ahterior leads. Rt femoral LHC performed with stent to both proximal and mid LAD. She is in the ICU s/p heart cath with critical care consult for evaluation and post-cath medical management. Hospital day 2 No acute events overnight. Patient remained comfortable with no complaints or questions. Objective PUL Vital signs: Last Vital Signs Temp 98.8 F 05/31/17 03:30 Pulse 76 05/31/17 03:30 Resp 16 05/31/17 03:30 BP 129/69 05/31/17 03:30 Pulse Ox 96 05/31/17 03:30 General appearance: no acute distress, alert Eyes: nonicteric ENT: oropharynx moist Neck: supple Effort: normal Auscultation: bilateral: clear Cardiovascular: regular rate and rhythm, other (No chest pain or arm pain.) Gastrointestinal: normoactive bowel sounds, soft, non-tender, non-distended Integumentary: normal Extremities: no cyanosis, no edema, no clubbing, pink and warm, pulses normal Musculoskeletal: no deformities normal mental status, non-focal exam, pupils equal and round mood appropriate Results - Laboratory Findings CBC and BMP: 05/31/17 05:14 05/31/17 05:14 PT/INR, D-dimer PT 11.9 Seconds (9.4-12.1) 05/30/17 10:36 Abnormal lab findings: Abnormal lab results Glucose 184 mg/dL (70-105) H 05/30/17 10:36 POC Glucose 166 (58-89) H 05/30/17 12:53 Troponin I 0.09 ng/mL (< 0.04) H* 05/30/17 10:36 - Clinical Findings Intake & Output: Intake & Output 05/30/17 05/30/17 05/31/17 15:59 23:59 07:59 Intake Total 1000 / 1000 0 / 0 Output Total 100 / 100 650 / 650 250 / 250 Balance -100 / -100 350 / 350 -250 / -250 Weight 56.3 kg - VTE Reasons for not Prescribing Prophylaxis: Not indicated-Anticoagulated or INR therapeutic Consult Discharge Plan - Plan Referrals: Kateryna Aldridge CNP [Primary Care Provider] - <Coleman Wild - Last Filed: 05/31/17 21:31> Date of Encounter: 05/31/17 Objective PUL Vital signs: Last Vital Signs Temp 99.5 F 05/31/17 12:28 Pulse 76 05/31/17 11:00 Resp 14 05/31/17 11:00 BP 118/49 05/31/17 11:00 Pulse Ox 97 05/31/17 11:00 Results - Laboratory Findings CBC and BMP: 05/31/17 05:14 05/31/17 05:14 PT/INR, D-dimer PT 11.9 Seconds (9.4-12.1) 05/30/17 10:36 Abnormal lab findings: Abnormal lab results Chloride 108 mEq/L (98-107) H 05/31/17 05:14 Glucose 131 mg/dL (70-105) H 05/31/17 05:14 POC Glucose 166 (58-89) H 05/30/17 12:53 Calcium 8.5 mg/dL (8.6-10.3) L 05/31/17 05:14 Troponin I 0.09 ng/mL (< 0.04) H* 05/30/17 10:36 - Clinical Findings Intake & Output: Intake & Output 05/30/17 05/31/17 05/31/17 23:59 07:59 15:59 Intake Total 1000 / 1000 50 / 50 60 / 60 Output Total 650 / 650 250 / 250 200 / 200 Balance 350 / 350 -200 / -200 -140 / -140 Weight 56.3 kg - Attending Attestation I saw and evaluated this patient and my medical decision-making was reviewed with the Resident Physician. I agree with the documented findings, disposition and treatment plan as described except to the extent set forth below. We independently had [id number] contact with the patient Patient seen and examined at bedside Labs, radiology, chart personally reviewed. Management was reviewed during multidisciplinary critical care rounds. SUPERVISOR METAL CANS:Patient is conscious oriented times x 3 Pulm: Patient CXR shows no acute process , patient has acute hypoxic respiratory failure most likely due to pulmonary vascular congestion with LVEF in ventriculogram is 40% will wean O2 supplementation as tolerated Cards:STEMI had stent , cardiac medication regimen according to cardiology FEN-GI: Cardiac diet . Renal:Labs and UOP reviewed ID: No acute issues Heme/Onc: Labs reviewed Endo: Glucose Monitored Integ/MSK: Skin Care per routine ICU Nursing Protocol to prevent ulcers. Lines: All lines examined without evidence of infection : Dispo: Transfer to stepdown according to cardiology CODE:Full Code
[2017-05-31 05:40] LABS: Basophils % 0.1 %; Hematocrit 38.3 % (35.3-44.9); Immature Granulocytes % 0.3 % (0-4); Lymphocytes # 1.6 K/mcL (0.6-4.6); Lymphocytes % 14.8 %; Mean Corpuscular HGB Conc 32.6 g/dL (31.6-35.5); Mean Corpuscular Hemoglobin 31.5 pg (28.0-33.3); Mean Corpuscular Volume 96.5 fL (83.0-100.0); Mean Platelet Volume 11.5 fL (9.4-12.4); Monocytes # 0.9 K/mcL (0.0-1.3); Monocytes % 8.1 %; Neutrophils # 8.4 K/mcL (1.6-8.9); Platelet Count 164 K/mcL (140-400); Red Blood Count 3.97 M/mcL (3.82-4.97); Red Cell Distribution Width 12.7 % (11.5-14.5); Segmented Neutrophils % 76.7 %
[2017-05-31 05:41] LABS: BUN/Creatinine Ratio 26 (6-26); Blood Urea Nitrogen 16 mg/dL (8-23); Calcium 8.5 mg/dL (8.6-10.3); Carbon Dioxide 25 mEq/L (23-29); Chloride 108 mEq/L (98-107); Glucose 131 mg/dL (70-105); Hemoglobin 12.5 g/dL (11.5-15.4); Osmolality,Calculated 293 (280-300); Potassium 4.1 mEq/L (3.5-5.1); Sodium 140 mEq/L (136-145); eGFR For African Americans > 60 (> 60); eGFR For Non-African Americans > 60 (> 60)
[2017-05-31] MEDS: *HR* Promethazine 25 MG/ML VIAL IVP PRN (07:58)
[2017-05-31] MEDS: *HR* Ticagrelor 90 MG TABLET PO SCH ×2 (07:58→20:37)
--- NOTE | 2017-05-31 08:55 | Cardiology Progress Note ---
Date of Encounter: 05/31/17 Time of Encounter: 08:52 Assessment and Plan (1) ST elevation myocardial infarction (STEMI) Current Visit: Yes Status: Acute Patient presented yesterday with evidence of a STEMI. Emergent left heart catheterization performed, which resulted MYAH x3 to the LAD. LVEF by ventriculogram 40%. Importance of medical therapy emphasized to patient and family. Recommend dual antiplatelet therapy uninterrupted for 1 year. Aspirin indefinitely. Start statin therapy. Blood pressure marginal. Continue Coreg as tolerated. Consider JOAQUINA inhibitor in the future if blood pressure tolerates. CHF education provided. Qualifiers: Involved coronary artery: LAD coronary artery Qualified Code(s): I21.02 - ST elevation (STEMI) myocardial infarction involving left anterior descending coronary artery Discussion w patient/family: The assessment and plan as outlined above was discussed with the patient and/or family members who expressed understanding and agreement. All questions were answered. Thank you for involving us in the care of your patient. Please call with any questions. Subjective Principal diagnosis: STEMI Interval history: Patient seen and examined. Denies recurrent chest discomfort. Nausea noted since admission, seems to be mildly improved today. Objective Vital Signs, Last 4 Hours Temp Pulse Resp BP Pulse Ox 05/31/17 08:00 73 12 109/53 96 05/31/17 07:45 98.5 F 05/31/17 07:00 98.5 F 73 12 86/52 96 05/31/17 06:00 71 16 90/55 97 05/31/17 05:30 70 16 90/56 96 General: Conversant, No Apparent Distress HEENT: Atraumatic, Normocephaly, Mucus Membranes Moist Neck: No JVD, Normal carotid pulses Cardiac: Reg Rate and Rhythm, Normal S1 and S2, No Murmur Lungs: Normal Breath Sounds, No Wheeze, Rales, Rhonchi Neuro: Alert and responsive, No focal deficits noted Abdomen: Soft, Non-Tender Skin: No rashes noted on visualized skin Musculoskeletal: No Chest Wall Tenderness Extremities: No Clubbing, No Cyanosis, No Edema Results 05/31/17 05:14 05/31/17 05:14 Lab Results 05/31/17 05/31/17 05:14 05:14 WBC 11.0 Hgb 12.5 D Hct 38.3 Plt Count 164 Sodium 140 Potassium 4.1 Chloride 108 H Carbon Dioxide 25 BUN 16 Creatinine 0.62 Glucose 131 H Calcium 8.5 L - Imaging and Cardiology Cardiac cath: report reviewed - VTE Reasons for not Prescribing Prophylaxis: Not indicated-Anticoagulated or INR therapeutic Consult Discharge Plan - Plan Referrals: Kateryna Aldridge, [employer] DES[employer]ER [Primary Care Provider] -
[2017-05-31] MEDS ORDERED: *HR* Promethazine 25 MG/ML VIAL IVP PRN (09:20)
[2017-05-31] MEDS ORDERED: Aspirin 81 MG TAB.CHEW ONE (13:25)
[2017-05-31] MEDS: Aspirin 81 MG TAB.CHEW PO SCH (13:47)
[2017-05-31] MEDS ORDERED: *HR* Heparin 5,000 UNIT/ML VIAL SQ SCH (14:00)
[2017-06-01 05:06] LABS: Hematocrit 37.6 % (35.3-44.9); Hemoglobin 12.1 g/dL (11.5-15.4); Mean Corpuscular HGB Conc 32.2 g/dL (31.6-35.5); Mean Corpuscular Hemoglobin 31.2 pg (28.0-33.3); Mean Corpuscular Volume 96.9 fL (83.0-100.0); Platelet Count 138 K/mcL (140-400); Red Blood Count 3.88 M/mcL (3.82-4.97); Red Cell Distribution Width 13.1 % (11.5-14.5)
[2017-06-01 05:13] LABS: BUN/Creatinine Ratio 27 (6-26); Blood Urea Nitrogen 17 mg/dL (8-23); Calcium 8.6 mg/dL (8.6-10.3); Carbon Dioxide 28 mEq/L (23-29); Chloride 107 mEq/L (98-107); Glucose 129 mg/dL (70-105); Osmolality,Calculated 293 (280-300); Potassium 3.8 mEq/L (3.5-5.1); Sodium 140 mEq/L (136-145); eGFR For African Americans > 60 (> 60); eGFR For Non-African Americans > 60 (> 60)
[2017-06-01 07:53] VITALS: BP 108/54
[2017-06-01] MEDS: Aspirin 81 MG TAB.CHEW PO SCH (07:58)
[2017-06-01] MEDS: *HR* Ticagrelor 90 MG TABLET PO SCH (07:58)
--- NOTE | 2017-06-01 10:22 | Discharge Summary ---
Date of Encounter: 06/01/17 Time of Encounter: 10:19 - Discharge Diagnosis (1) ST elevation myocardial infarction (STEMI) Priority: Primary Status: Acute Qualifiers: Involved coronary artery: LAD coronary artery Qualified Code(s): I21.02 - ST elevation (STEMI) myocardial infarction involving left anterior descending coronary artery (2) Hyperlipidemia Priority: Secondary Status: Chronic Qualifiers: Hyperlipidemia type: mixed hyperlipidemia Qualified Code(s): E78.2 - Mixed hyperlipidemia - Discharge Medications Prescriptions: Aspirin [Adult Aspirin Regimen] 81 mg PO DAILY #30 tablet. Carvedilol 3.125 mg PO BID #60 tab Ticagrelor [Brilinta] 90 mg PO BID #60 tablet Home Medications: Aspirin [Adult Aspirin Regimen] 81 mg PO DAILY #30 tablet. 06/01/17 [Rx] Carvedilol 3.125 mg PO BID #60 tab 06/01/17 [Rx] Ticagrelor [Brilinta] 90 mg PO BID #60 tablet 06/01/17 [Rx] Allergies/Adverse Reactions: 3 Allergy/AdvReac Type Severity Reaction Status Date / Time ezetimibe [From Zetia] AdvReac Cramping Verified 05/30/17 10:58 of the Muscles fenofibrate [From Tricor] AdvReac Cramping Verified 05/30/17 10:58 of the Muscles rosuvastatin [From Crestor] AdvReac Cramping Verified 05/30/17 10:58 of the Muscles simvastatin AdvReac Cramping Verified 05/30/17 10:58 of the Muscles - NOTES TO OUTPATIENT PROVIDER Notes to Outpatient Provider: Patient noted patient to be more depressed since OR. Recommend close f/u with primary care provider. Orders not resulted at time of discharge: Pending orders 05/30/17 12:53 Consult to Cardiac Rehabilitation-Phase1 [CONS] Routine Consult to Nurse Navigator [CONS] Routine Date of admission: 05/30/17 11:33 Primary care physician: Kateryna Aldridge CNP Consults: 05/30/17 12:53 Consult to Cardiac Rehabilitation-Phase1 [CONS] Routine Comment: Reason for Consult: AMI Call Completed: Yes Consult to Nurse Navigator [CONS] Routine Comment: 05/30/17 13:06 Consult to Critical Care [CONS] Routine Consulting Provider: [facility] Reason for Consult: ICU management post OR Time Notified: 13:30 Call Completed: No Discharging clinician: Joe Alas Anticipated date of discharge: 06/01/17 - Patient Status Disposition: Home, Self-Care Condition: Fair Functional capacity at discharge: independent ambulation Overall status at discharge: patient is progressing back to baseline - Discharge Instructions Follow Up With: Kateryna Aldridge [employer] OFFICER [Primary Care Provider] - Additional Instructions: RISK FACTORS: STOP SMOKING: If you smoke, STOP. Smoking or tobacco use significantly increases your risk of heart disease because nicotine causes the arteries to narrow or constrict. It also causes fats to stick to the artery. Your chances of having a heart attack are greatly increased if you continue to smoke. For more information, call the education line for smoking cessation 1-782-HQTTSGZ EAT A LOW FAT/CHOLESTEROL/SODIUM DIET: This diet may help reduce your chances of having a heart attack. LIFTING: Avoid lifting anything more than 10 pounds for 5-7 days Prior to straining, laughing, sneezing and/or coughing, apply manual pressure directly over insertion site. ACTIVITY: You may walk or climb stairs as tolerated You can resume sexual activity as tolerated In general, you are encouraged to engage in a minimum of 30 minutes or more of moderate intensity physical activity, such as brisk walking, daily or at least 3 -4 times weekly BATHING Do not submerge the site into water (bath tub, hot tub, swimming pool) for 1 week. This can be a source for infection into the blood stream. You may shower after 24 hours SITE CARE: After 24 hours, you may remove the dressing and leave the site open to air. Keep the site clean and dry. Clean gently and pat dry. You can expect bruising and tenderness that gradually resolve within a week or two. Return to work as instructed per your physician Resume driving as instructed per physician Keep all scheduled follow up appointments Resume medications as instructed IMPORTANT: If prescribed a Platelet Aggregation Inhibitor such as, Plavix, Brilinta or Effient: Duration of therapy is minimum one year These medications are often used in combination with Aspirin in prevention of future heart attacks Never discontinue unless consult with your Physical Therapy Instructor STROKE (CVA) Risk factors for a stroke are: Age, cigarette smoking, diabetes, excessive alcohol consumption, family history, high blood pressure, overweight, physical inactivity, prior stroke, heart attack, diagnosis of carotid artery stenosis or other artery disease. Warning signs: Sudden numbness or weakness of the face, arm or leg; especially on one side of the body, sudden confusion, trouble speaking or understanding, sudden trouble seeing in one or both eyes, sudden trouble walking, dizziness, loss of balance or coordination, sudden severe headache with no cause. Call 911 or go to the Emergency Room. CONGESTIVE HEART FAILURE: If you have been diagnosed with Congestive Heart Failure (CHF) and your symptoms return, make an appointment with your physician Weigh yourself daily. Notify your physician if you have a weight gain of two or more pounds in one day or five or more pounds in one week. If you experience any difficulty breathing, please call 911 BLEEDING: Although the risk of bleeding is minimal, it can happen. If you have any bleeding from the site, apply firm pressure above the puncture site for 10-15 minutes. If the bleeding does not stop, continue manual pressure and call 911 Contact your physician if: You develop a fever greater than 101 degrees Fahrenheit Your site becomes reddened or has any drainage You have an increase in pain or burning at the site or if a large knot forms at the site. If you experience chest pain, shortness of breath, dizziness, or extreme tiredness, stop the activity and rest. Please notify your physicians office if you experience any of these symptoms and they are not relieved by rest please call 911! - Diet and Activity Activity: increase activity as tolerated Diet: low fat, low cholesterol, low salt diet - Hospital Course Hospital course: Ms. Mcgovern is a 81 year old female with a past medical history of hyperlipidemia who presented 05/30/17 with sudden onset of chest pain radiating to both of her arms. She was found to have STEMI and was taken emergently to the cardiac catheterization lab, which resulted MYAH x3 to the LAD. There was an 80% stenosis in the RCA remaining. LVEF 40%. TTE completed overnight shows LVEF 45-50%. Low normal to mildly reduced LV systolic dysfunction with regional variations Normal right ventricular structure and function. Mild mitral regurgitation. Moderate tricuspid regurgitation. Mild pulmonary hypertension. There is a small pericardial effusion present near the inferolateral wall. There is no echocardiographic evidence of tamponade. Recommend dual antiplatelet therapy uninterrupted for 1 year. Aspirin indefinitely. Free 30 day brilinta card given. and patient voiced understanding. Continue bb. Patient reports allergy to all statins. Consider JOAQUINA inhibitor in the future if blood pressure tolerates. CHF education provided to patient and . Low sodium diet recommended. She is currently euvolemic. Noted to have mild leukocytosis. Likely reactive. Patient denies signs of infection. CXR was negative. Continue to monitor. Staged PCI to the RCA in 2-3 weeks is recommended. Out-patient f/u will be scheduled by [facility] in one week with Dr. Dye. Patient recommended to follow with PCP in 1-2 weeks also. - Time Spent with Patient Total time spent providing and/or coordinating discharge services: Greater than 30 minutes Physical Examination Vital Signs, Last 4 Hours Temp Pulse Resp BP Pulse Ox 06/01/17 08:11 97.9 F 06/01/17 07:00 76 14 108/54 94 General: Conversant, No Apparent Distress, Other (Patient appears depressed. ) HEENT: Atraumatic, Normocephaly, Mucus Membranes Moist Neck: No JVD, Normal carotid pulses Cardiac: Reg Rate and Rhythm, Normal S1 and S2, No Murmur Lungs: Normal Breath Sounds, No Wheeze, Rales, Rhonchi Neuro: Alert and responsive, No focal deficits noted Abdomen: Soft, Non-Tender Skin: No rashes noted on visualized skin Musculoskeletal: No Chest Wall Tenderness Extremities: No Clubbing, No Cyanosis, No Edema, Normal Pulses - VTE Reasons for not Prescribing Prophylaxis: Not indicated-Anticoagulated or INR therapeutic
--- NOTE | 2017-06-01 11:42 | Event Note ---
Date of Encounter: 06/01/17 Time of Encounter: 11:41 Patient seen and examined earlier this morning. Overall, reports that she is feeling better. No chest pain reported. Importance of medical therapy discussed. States she will consider statin therapy as an outpatient. Findings of TTE and LHC reviewed. All questions answered.
--- NOTE | 2017-06-04 09:20 | Electrocardiograph Report ---
[address] [place] [address] Test Date: 2017-05-30 Pat Name: Sonam Mcgovern Department: 103 Room: [facility] Gender: F [place] Weaver: JENNI : 1935 Requested By: Abad Morales Order Number: [id number] Reading MD: Harmeet Macias DO Measurements Intervals [place] Rate: 64 P: 59 ND: 142 QRS: -21 QRSD: 118 T: 50 QT: 426 QTc: 436 Interpretive Statements SINUS RHYTHM INCOMPLETE RIGHT BUNDLE BRANCH BLOCK POSSIBLE ANTERIOR MYOCARDIAL INFARCTION, POSSIBLE ACUTE Electronically Signed On 06-04-2017 9:19:06 EST by Harmeet Macias DO
== END 2017-06-01 11:30 | disposition home or self-care (01) | DRG 246 ==
LOC: EMEROO 10:25 → ICNU 11:33
PROVIDERS: ADMIT Internal Medicine Cardiovascular Disease; ATTEND Internal Medicine Cardiovascular Disease

== ENCOUNTER 2017-06-01 23:05 | Inpatient (IN) ==
[2017-06-01] MEDS ORDERED: *HR* FentaNYL (PF) 100 MCG/2 ML VIAL ONE (23:16)
[2017-06-01] MEDS ORDERED: Propofol 500 MG/50 ML INFUS..BTL ONE (23:17)
[2017-06-01] MEDS ORDERED: 0.9 % Sodium Chloride 1,000 ML IVC ONE (23:17)
--- NOTE | 2017-06-01 23:27 | Emergency Department Note ---
Disposition Clinical Impression: Elevated troponin Altered mental status Qualifiers: Altered mental status type: unspecified Qualified Code(s): R41.82 - Altered mental status, unspecified Disposition: Admitted As Inpatient Condition: Fair Time of Disposition: 01:20 Altered Mental Status HPI - General Chief Complaint: ED Altered Mental Status Stated Complaint: decreased LOC Time Seen by Provider: 06/01/17 23:15 Source: EMS Mode of arrival: ambulatory Limitations: no limitations Nursing Notes Reviewed: Yes Vital Signs Reviewed: Yes - History of Present Illness HPI Narrative: 81-year-old female with recent stent placed over the past week presents for evaluation of altered mental status. Report per EMS with that the patient was complaining of chest pain left arm pain and passed out. Patient did not provide any additional history. EMS did not give any interventions prior to ED arrival. - Related Data Previous Rx's Medication Instructions Recorded Aspirin [Adult Aspirin Regimen] 81 mg PO DAILY #30 tablet. 06/01/17 Carvedilol 3.125 mg PO BID #60 tab 06/01/17 Ticagrelor [Brilinta] 90 mg PO BID #60 tablet 06/01/17 Allergies Allergy/AdvReac Type Severity Reaction Status Date / Time ezetimibe [From Zetia] AdvReac Cramping Verified 05/30/17 10:58 of the Muscles fenofibrate [From Tricor] AdvReac Cramping Verified 05/30/17 10:58 of the Muscles rosuvastatin [From Crestor] AdvReac Cramping Verified 05/30/17 10:58 of the Muscles simvastatin AdvReac Cramping Verified 05/30/17 10:58 of the Muscles Limitations: ROS unobtainable due to patients medical condition Past Medical History - Past Medical History Source: unable to obtain, old records reviewed Medical history: Reports: coronary artery disease, myocardial infarction Psychiatric history: Reports: no psych history - Social History Smoking Status: Never smoker Smokeless Tobacco Status: No Alcohol use: Reports: none Drug use: Reports: none Physical Exam - General Limitations: no limitations General appearance: obtunded - Head Head exam: atraumatic, normocephalic - Eye Eye exam: Present: normal appearance. Absent: nystagmus, miosis, mydriasis - ENT ENT exam: normal exam, mucous membranes moist - Neck Neck exam: Present: normal inspection, trachea midline - Chest Chest inspection: Present: normal inspection, symmetric chest wall rise - Respiratory Respiratory exam: Absent: respiratory distress, prolonged expiratory phase - Cardiovascular Cardiovascular exam: Present: regular rate, normal rhythm. Absent: systolic murmur - Abdominal Exam Abdominal exam: Present: soft. Absent: distention, guarding, rebound - Extremities Exam Extremities exam: Present: normal inspection - Back Exam Back exam: Present: normal inspection - Neurological Exam Neurological exam: Present: other (GCS of 7 with no eye-opening, and calm principal sounds as well as withdrawal to pain.) - Skin Skin exam: Present: warm, dry, intact, normal color Course Course Narrative: Patient arrived with acute change altered mental status. Patient would not arouse with a low GCS score. Patient had a recent heart catheter. Patient will get a CT abdomen had chest. Patient also get basic lab work. Patient's airway was secured given the low GCS. - Reevaluation(s) Reevaluation #1: Patient family at bedside. Patient's family updated on plan of care. Patient' s family states that she was getting up from the dinner table and walking to go to bed and the noted that the patient was not acting appropriately. Patient initially was complaining of right arm pain prior to that. Family denies any specific chest pain. Family also notes some irregular respirations. Time: 01:34 - Consultations Consultation #1: Spoke with cardiology, Dr. Mortensen and made aware of the patient's condition admitted to the ICU given the recent heart catheter. Recommend continuing the heparin. No other interventions as time. EKG discussed with him over the phone. Time: 01:06 Vital Signs Temperature 0 F L 06/01/17 23:07 Pulse Rate 78 06/01/17 23:07 Respiratory Rate 12 06/01/17 23:07 Blood Pressure 112/78 06/01/17 23:07 O2 Sat by Pulse Oximetry 100 06/01/17 23:07 Temperature 0 F L 06/01/17 23:07 Pulse Rate 70 06/02/17 00:33 Respiratory Rate 12 06/02/17 00:33 Blood Pressure 118/62 06/02/17 00:33 O2 Sat by Pulse Oximetry 100 06/02/17 00:33 Oxygen Delivery Oxygen Delivery Ventilator Procedures - Intubation Time out performed: No sedative: Etomidate Mg Given: 20 paralytic: Rocuronium Mg Given: 100 Laryngoscope: Vale ET Tube Size: 7.5 ET Tube Uncuffed: No Tube Secured Depth (cm): 26 Tube Secured Location: lips Tube Placement Confirmation: visualized tube passing through cords, equal breath sounds bilaterally, no breath sounds over epigastrium, confirmation by capnometry Patient Tolerated Procedure: well, no complications Intubation Complications: none Altered Mental Status - MDM Narrative Medical decision making narrative: Patient presents with acute altered mental status. With decreased loss of consciousness. Patient had a recent heart catheter within the past week. Patient had 2 stents placed. EF of 40%. Patient was intubated upon arrival to the ED due to decreased mental status and GCS is 7. No specific prodrome prior to. Patient has CT a of the chest as well as CT of the head. Patient's labs reveal that she does have an elevated troponin. Patient has no contraindications to anticoagulation. Patient started on heparin. No acute changes in EKG. Patient was not a stroke alert initially given the lack of history with no clear well-known time of onset. Patient was intubated for airway protection given the low GCS. Patient did have an elevated troponin was started on heparin. Patient will be admitted to the ICU for continued monitoring and support. - Lab Data Lab results reviewed: Yes I reviewed the patient's lab results. Result diagrams: 06/01/17 23:30 06/01/17 23:30 Lab Results 06/01/17 06/01/17 06/01/17 Range/Units 23:07 23:30 23:30 WBC 7.9 (4.3-11.1) K/mcL RBC 3.63 L (3.82-4.97) M/mcL Hgb 11.4 L (11.5-15.4) g/dL Hct 35.1 L (35.3-44.9) % MCV 96.7 (83.0-100.0) fL MCH 31.4 (28.0-33.3) pg MCHC 32.5 (31.6-35.5) g/dL RDW 12.6 (11.5-14.5) % Plt Count 131 L (140-400) K/mcL MPV 11.6 (9.4-12.4) fL Immature Gran % 0.4 (0-4) % Seg Neutrophils % 66.3 % Lymphocytes % 23.1 % Monocytes % 9.4 % Eosinophils % 0.4 % Basophils % 0.4 % Neutrophils # 5.2 (1.6-8.9) K/mcL Lymphocytes # 1.8 (0.6-4.6) K/mcL Monocytes # 0.7 (0.0-1.3) K/mcL Eosinophils # 0.0 (0.0-0.6) K/mcL Basophils # 0.0 (0.0-0.2) K/mcL Immature Plt Fraction 9.5 H (1.1-6.1) % PT 14.6 H (9.4-12.1) Seconds INR 1.3 APTT 27.3 (26.0-36.0) Seconds ABG pH (7.32-7.45) pH Units ABG pCO2 (35-45) mmHg ABG pO2 (85-104) mmHg ABG HCO3 (21-27) mEq/L ABG Total CO2 (20-26) mEq/L ABG O2 Saturation (95-98) % ABG Base Excess (-2 to 3) mEq/L Sodium (136-145) mEq/L Potassium (3.5-5.1) mEq/L Chloride (98-107) mEq/L Carbon Dioxide (23-29) mEq/L BUN (8-23) mg/dL Creatinine (0.60-1.20) mg/dL Est GFR ( Amer) (> 60) Est GFR (Non-Af Amer) (> 60) BUN/Creatinine Ratio (6-26) Glucose (70-105) mg/dL POC Glucose 148 H (58-89) Calculated Osmolality (280-300) Calcium (8.6-10.3) mg/dL Total Bilirubin (0.3-1.0) mg/dL Direct Bilirubin (0.0-0.2) mg/dL Indirect Bilirubin (0.0-1.2) mg/dL AST (13-39) Units/L ALT (7-52) Units/L Alkaline Phosphatase (34-104) Units/L Troponin I (< 0.04) ng/mL B-Natriuretic Peptide (Less than 100) pg/mL Serum Total Protein (6.4-8.9) g/dL Albumin (3.5-5.7) g/dL Globulin (2.4-3.5) g/dL Albumin/Globulin Ratio (1.1-2.2) Urine Color (Yellow) Urine Clarity (Clear) Urine pH (5.0-8.0) pH Units Ur Specific [place] (1.010-1.025) Urine Protein (Neg-Trace) mg/dL Urine Glucose (UA) (Normal) mg/dL Urine Ketones (Negative) mg/dL Urine Blood (Negative) Urine Nitrite (Negative) Urine Bilirubin (Negative) Urine Urobilinogen (Normal) mg/dL Ur Leukocyte Esterase (Negative) Urine Microscopic RBC (0-3) per hpf Urine Microscopic WBC (0-3) per hpf Ur Culture Indicated? (NO) Urine Opiates Screen (Aejzno=482) ng/mL Ur Barbiturates Screen (Hqaejq=525) ng/mL Ur Phencyclidine Scrn (Cutoff=25) ng/mL Ur Amphetamines Screen (Acsohb=1996) ng/mL U Benzodiazepines Scrn (Sbhjej=043) ng/mL Urine Cocaine Screen (Cutoff= 300) ng/mL U Marijuana (THC) Screen (Cutoff = 50) ng/mL Ethyl Alcohol (0-10) mg/dL 06/01/17 06/01/17 06/01/17 Range/Units 23:30 23:30 23:31 WBC (4.3-11.1) K/mcL RBC (3.82-4.97) M/mcL Hgb (11.5-15.4) g/dL Hct (35.3-44.9) % MCV (83.0-100.0) fL MCH (28.0-33.3) pg MCHC (31.6-35.5) g/dL RDW (11.5-14.5) % Plt Count (140-400) K/mcL MPV (9.4-12.4) fL Immature Gran % (0-4) % Seg Neutrophils % % Lymphocytes % % Monocytes % % Eosinophils % % Basophils % % Neutrophils # (1.6-8.9) K/mcL Lymphocytes # (0.6-4.6) K/mcL Monocytes # (0.0-1.3) K/mcL Eosinophils # (0.0-0.6) K/mcL Basophils # (0.0-0.2) K/mcL Immature Plt Fraction (1.1-6.1) % PT (9.4-12.1) Seconds INR APTT (26.0-36.0) Seconds ABG pH (7.32-7.45) pH Units ABG pCO2 (35-45) mmHg ABG pO2 (85-104) mmHg ABG HCO3 (21-27) mEq/L ABG Total CO2 (20-26) mEq/L ABG O2 Saturation (95-98) % ABG Base Excess (-2 to 3) mEq/L Sodium 140 (136-145) mEq/L Potassium 3.3 L (3.5-5.1) mEq/L Chloride 108 H (98-107) mEq/L Carbon Dioxide 27 (23-29) mEq/L BUN 19 (8-23) mg/dL Creatinine 0.60 (0.60-1.20) mg/dL Est GFR ( Amer) > 60 (> 60) Est GFR (Non-Af Amer) > 60 (> 60) BUN/Creatinine Ratio 32 H (6-26) Glucose 146 H (70-105) mg/dL POC Glucose (58-89) Calculated Osmolality 295 (280-300) Calcium 8.0 L (8.6-10.3) mg/dL Total Bilirubin 0.8 (0.3-1.0) mg/dL Direct Bilirubin 0.1 (0.0-0.2) mg/dL Indirect Bilirubin 0.7 (0.0-1.2) mg/dL AST 51 H (13-39) Units/L ALT 29 (7-52) Units/L Alkaline Phosphatase 61 (34-104) Units/L Troponin I 3.33 H* (< 0.04) ng/mL B-Natriuretic Peptide (Less than 100) pg/mL Serum Total Protein 5.3 L (6.4-8.9) g/dL Albumin 2.9 L (3.5-5.7) g/dL Globulin 2.4 (2.4-3.5) g/dL Albumin/Globulin Ratio 1.2 (1.1-2.2) Urine Color Dark Yellow (Yellow) Urine Clarity Cloudy A (Clear) Urine pH 6.5 (5.0-8.0) pH Units Ur Specific [place] 1.025 (1.010-1.025) Urine Protein Trace (Neg-Trace) mg/dL Urine Glucose (UA) Normal (Normal) mg/dL Urine Ketones 15 H (Negative) mg/dL Urine Blood Negative (Negative) Urine Nitrite Negative (Negative) Urine Bilirubin Small H (Negative) Urine Urobilinogen 2.0 H (Normal) mg/dL Ur Leukocyte Esterase Negative (Negative) Urine Microscopic RBC 0-3 (0-3) per hpf Urine Microscopic WBC 0-3 (0-3) per hpf Ur Culture Indicated? NO (NO) Urine Opiates Screen (Vijkjp=865) ng/mL Ur Barbiturates Screen (Kfyzxt=540) ng/mL Ur Phencyclidine Scrn (Cutoff=25) ng/mL Ur Amphetamines Screen (Dlbyaf=3335) ng/mL U Benzodiazepines Scrn (Ijjsqn=508) ng/mL Urine Cocaine Screen (Cutoff= 300) ng/mL U Marijuana (THC) Screen (Cutoff = 50) ng/mL Ethyl Alcohol < 10 (0-10) mg/dL 06/01/17 06/01/17 06/02/17 Range/Units 23:31 23:38 00:09 WBC (4.3-11.1) K/mcL RBC (3.82-4.97) M/mcL Hgb (11.5-15.4) g/dL Hct (35.3-44.9) % MCV (83.0-100.0) fL MCH (28.0-33.3) pg MCHC (31.6-35.5) g/dL RDW (11.5-14.5) % Plt Count (140-400) K/mcL MPV (9.4-12.4) fL Immature Gran % (0-4) % Seg Neutrophils % % Lymphocytes % % Monocytes % % Eosinophils % % Basophils % % Neutrophils # (1.6-8.9) K/mcL Lymphocytes # (0.6-4.6) K/mcL Monocytes # (0.0-1.3) K/mcL Eosinophils # (0.0-0.6) K/mcL Basophils # (0.0-0.2) K/mcL Immature Plt Fraction (1.1-6.1) % PT 15.0 H (9.4-12.1) Seconds INR 1.4 APTT 27.9 (26.0-36.0) Seconds ABG pH 7.42 (7.32-7.45) pH Units ABG pCO2 40 (35-45) mmHg ABG pO2 68 L (85-104) mmHg ABG HCO3 26 (21-27) mEq/L ABG Total CO2 27 H (20-26) mEq/L ABG O2 Saturation 94 L (95-98) % ABG Base Excess 1 (-2 to 3) mEq/L Sodium (136-145) mEq/L Potassium (3.5-5.1) mEq/L Chloride (98-107) mEq/L Carbon Dioxide (23-29) mEq/L BUN (8-23) mg/dL Creatinine (0.60-1.20) mg/dL Est GFR ( Amer) (> 60) Est GFR (Non-Af Amer) (> 60) BUN/Creatinine Ratio (6-26) Glucose (70-105) mg/dL POC Glucose (58-89) Calculated Osmolality (280-300) Calcium (8.6-10.3) mg/dL Total Bilirubin (0.3-1.0) mg/dL Direct Bilirubin (0.0-0.2) mg/dL Indirect Bilirubin (0.0-1.2) mg/dL AST (13-39) Units/L ALT (7-52) Units/L Alkaline Phosphatase (34-104) Units/L Troponin I (< 0.04) ng/mL B-Natriuretic Peptide (Less than 100) pg/mL Serum Total Protein (6.4-8.9) g/dL Albumin (3.5-5.7) g/dL Globulin (2.4-3.5) g/dL Albumin/Globulin Ratio (1.1-2.2) Urine Color (Yellow) Urine Clarity (Clear) Urine pH (5.0-8.0) pH Units Ur Specific [place] (1.010-1.025) Urine Protein (Neg-Trace) mg/dL Urine Glucose (UA) (Normal) mg/dL Urine Ketones (Negative) mg/dL Urine Blood (Negative) Urine Nitrite (Negative) Urine Bilirubin (Negative) Urine Urobilinogen (Normal) mg/dL Ur Leukocyte Esterase (Negative) Urine Microscopic RBC (0-3) per hpf Urine Microscopic WBC (0-3) per hpf Ur Culture Indicated? (NO) Urine Opiates Screen Positive H (Peponn=899) ng/mL Ur Barbiturates Screen Negative (Enrgai=639) ng/mL Ur Phencyclidine Scrn Negative (Cutoff=25) ng/mL Ur Amphetamines Screen Negative (Dykliv=2680) ng/mL U Benzodiazepines Scrn Negative (Sjptha=913) ng/mL Urine Cocaine Screen Negative (Cutoff= 300) ng/mL U Marijuana (THC) Screen Positive H (Cutoff = 50) ng/mL Ethyl Alcohol (0-10) mg/dL 06/02/17 Range/Units 00:10 WBC (4.3-11.1) K/mcL RBC (3.82-4.97) M/mcL Hgb (11.5-15.4) g/dL Hct (35.3-44.9) % MCV (83.0-100.0) fL MCH (28.0-33.3) pg MCHC (31.6-35.5) g/dL RDW (11.5-14.5) % Plt Count (140-400) K/mcL MPV (9.4-12.4) fL Immature Gran % (0-4) % Seg Neutrophils % % Lymphocytes % % Monocytes % % Eosinophils % % Basophils % % Neutrophils # (1.6-8.9) K/mcL Lymphocytes # (0.6-4.6) K/mcL Monocytes # (0.0-1.3) K/mcL Eosinophils # (0.0-0.6) K/mcL Basophils # (0.0-0.2) K/mcL Immature Plt Fraction (1.1-6.1) % PT (9.4-12.1) Seconds INR APTT (26.0-36.0) Seconds ABG pH (7.32-7.45) pH Units ABG pCO2 (35-45) mmHg ABG pO2 (85-104) mmHg ABG HCO3 (21-27) mEq/L ABG Total CO2 (20-26) mEq/L ABG O2 Saturation (95-98) % ABG Base Excess (-2 to 3) mEq/L Sodium (136-145) mEq/L Potassium (3.5-5.1) mEq/L Chloride (98-107) mEq/L Carbon Dioxide (23-29) mEq/L BUN (8-23) mg/dL Creatinine (0.60-1.20) mg/dL Est GFR ( Amer) (> 60) Est GFR (Non-Af Amer) (> 60) BUN/Creatinine Ratio (6-26) Glucose (70-105) mg/dL POC Glucose (58-89) Calculated Osmolality (280-300) Calcium (8.6-10.3) mg/dL Total Bilirubin (0.3-1.0) mg/dL Direct Bilirubin (0.0-0.2) mg/dL Indirect Bilirubin (0.0-1.2) mg/dL AST (13-39) Units/L ALT (7-52) Units/L Alkaline Phosphatase (34-104) Units/L Troponin I (< 0.04) ng/mL B-Natriuretic Peptide 424 H (Less than 100) pg/mL Serum Total Protein (6.4-8.9) g/dL Albumin (3.5-5.7) g/dL Globulin (2.4-3.5) g/dL Albumin/Globulin Ratio (1.1-2.2) Urine Color (Yellow) Urine Clarity (Clear) Urine pH (5.0-8.0) pH Units Ur Specific [place] (1.010-1.025) Urine Protein (Neg-Trace) mg/dL Urine Glucose (UA) (Normal) mg/dL Urine Ketones (Negative) mg/dL Urine Blood (Negative) Urine Nitrite (Negative) Urine Bilirubin (Negative) Urine Urobilinogen (Normal) mg/dL Ur Leukocyte Esterase (Negative) Urine Microscopic RBC (0-3) per hpf Urine Microscopic WBC (0-3) per hpf Ur Culture Indicated? (NO) Urine Opiates Screen (Syoqnn=563) ng/mL Ur Barbiturates Screen (Pskquf=631) ng/mL Ur Phencyclidine Scrn (Cutoff=25) ng/mL Ur Amphetamines Screen (Lngqsc=6017) ng/mL U Benzodiazepines Scrn (Kscpze=518) ng/mL Urine Cocaine Screen (Cutoff= 300) ng/mL U Marijuana (THC) Screen (Cutoff = 50) ng/mL Ethyl Alcohol (0-10) mg/dL - Radiology Data Radiology results reviewed: Yes I reviewed the patient's radiology results. Chest X-Ray 06/01/17 23:17 IMPRESSION: 1. Endotracheal tube tip is in a relatively inferior location, superimposed just 1 cm above the parviz. That should be withdrawn approximately 2 cm for more optimal placement. 2. Pulmonary vascular congestion. Bilateral lower lung airspace opacity, edema versus pneumonia versus atelectasis. D/ / Adonis Can MD / Adonis Can MD Interpreting Provider: Adonis Can MD Chest CTA 06/01/17 23:18 IMPRESSION: 1. No definite scan evidence for pulmonary embolus. 2. Right mainstem intubation. The endotracheal tube should be withdrawn 3 cm. 3. Coronary artery disease. D/ / Jonn Gardner MD / Jonn Gardner MD Interpreting Provider: Jonn Gardner MD Head CT 06/01/17 23:18 IMPRESSION: No acute intracranial abnormality. D/ / Jonn Gardner MD / Jonn Gardner MD Interpreting Provider: Jonn Gardner MD - EKG Data EKG attestation: Yes I reviewed and interpreted this EKG. EKG shows normal: sinus rhythm Rate: normal Rhythm: NSR [place]/QRS: normal, RBBB T wave inversions: v1, v2, v3, v4, v5, v6 Interpretation: no acute changes, nonspecific ST-T wave changes TPA Checklist - LKW: 3-4.5 hrs Add. Warnings/Precautions Patient/family understanding: The patient/family members have been counseled and understood the risk, benefit , and alternatives of treatment.
--- NOTE | 2017-06-01 23:36 | Emergency Department Note ---
START Narrative - START START: I examined this patient and my medical decision-making was reviewed with the Resident Physician. I agree with the documented findings, disposition and treatment plan as described except to the extent set forth below. 81 year old female prsents to the ED via EMS unresponsive s/p cardiac stent placement and was discharged frvahe ICU today at 1300. PAtient states that she was doing well at home and then started to feel pain into her left arm and chest pain and then had a syncopal episode and went unresponsive and had apneic episodes and with a GCS of 7 when she arrived currently on Brill[place]. Patient was emergently intubated and we will do a unrespoinve workup and admit to ICU. CT head to rule out bleed
[2017-06-01 23:41] LABS: Basophils % 0.4 %; Eosinophils % 0.4 %; Hematocrit 35.1 % (35.3-44.9); Hemoglobin 11.4 g/dL (11.5-15.4); Immature Granulocytes % 0.4 % (0-4); Immature Platelets 9.5 % (1.1-6.1); Lymphocytes # 1.8 K/mcL (0.6-4.6); Lymphocytes % 23.1 %; Mean Corpuscular HGB Conc 32.5 g/dL (31.6-35.5); Mean Corpuscular Hemoglobin 31.4 pg (28.0-33.3); Mean Corpuscular Volume 96.7 fL (83.0-100.0); Mean Platelet Volume 11.6 fL (9.4-12.4); Monocytes # 0.7 K/mcL (0.0-1.3); Monocytes % 9.4 %; Neutrophils # 5.2 K/mcL (1.6-8.9); Platelet Count 131 K/mcL (140-400); Red Blood Count 3.63 M/mcL (3.82-4.97); Red Cell Distribution Width 12.6 % (11.5-14.5); Segmented Neutrophils % 66.3 %
[2017-06-01 23:42] LABS: ABG Base Excess 1 mEq/L (-2 to 3); ABG HCO3 26 mEq/L (21-27); ABG Oxygen Saturation 94 % (95-98); ABG PCO2 40 mmHg (35-45); ABG PH 7.42 pH Units (7.32-7.45); ABG PO2 68 mmHg (85-104); ABG TCO2 27 mEq/L (20-26)
[2017-06-01 23:45] LABS: INR 1.3; Prothrombin Time 14.6 Seconds (9.4-12.1)
[2017-06-01 23:48] LABS: Activated Partial Thrombo Time 27.3 Seconds (26.0-36.0)
[2017-06-01 23:58] LABS: Alanine Aminotransferase 29 Units/L (7-52); Albumin 2.9 g/dL (3.5-5.7); Albumin/Globulin Ratio 1.2 (1.1-2.2); Alkaline Phosphatase 61 Units/L (34-104); Aspartate Amino Transferase 51 Units/L (13-39); BUN/Creatinine Ratio 32 (6-26); Bilirubin,Direct 0.1 mg/dL (0.0-0.2); Bilirubin,Indirect 0.7 mg/dL (0.0-1.2); Bilirubin,Total 0.8 mg/dL (0.3-1.0); Blood Urea Nitrogen 19 mg/dL (8-23); Carbon Dioxide 27 mEq/L (23-29); Chloride 108 mEq/L (98-107); Globulin 2.4 g/dL (2.4-3.5); Glucose 146 mg/dL (70-105); Osmolality,Calculated 295 (280-300); Potassium 3.3 mEq/L (3.5-5.1); Sodium 140 mEq/L (136-145); Total Protein 5.3 g/dL (6.4-8.9); eGFR For African Americans > 60 (> 60); eGFR For Non-African Americans > 60 (> 60)
[2017-06-02 00:21] LABS: Ethanol < 10 mg/dL (0-10)
[2017-06-02] MEDS ORDERED: *HR* Heparin 5,000 UNIT/ML VIAL IVP ONE (00:41)
[2017-06-02] MEDS ORDERED: *HR* FentaNYL (PF) 100 MCG/2 ML VIAL IVP ONE (00:42)
[2017-06-02] MEDS ORDERED: Heparin 25,000 UNIT/500 ML D5W 25,000 UNIT/500 ML BAG IVC SCH (00:45)
[2017-06-02] MEDS ORDERED: Potassium Chloride 20 MEQ, Lidocaine 1% 2 ML in D5% in Water 250 ML IVPB ONE (00:53)
[2017-06-02 00:57] LABS: INR 1.4
[2017-06-02 01:00] LABS: Activated Partial Thrombo Time 27.9 Seconds (26.0-36.0)
[2017-06-02 01:04] LABS: Amphetamine Screen,Urine Negative ng/mL (Cutoff=1000); Barbiturate Screen,Urine Negative ng/mL (Cutoff=200); Benzodiazepines Screen,Urine Negative ng/mL (Cutoff=200); Cannabinoid Screen,Urine Positive ng/mL (Cutoff = 50); Cocaine Screen,Urine Negative ng/mL (Cutoff= 300); Opiate Screen,Urine Positive ng/mL (Cutoff=300); Phencyclidine Screen,Urine Negative ng/mL (Cutoff=25)
[2017-06-02 01:14] LABS: Bilirubin,Urine Small (Negative); Blood,Urine Negative (Negative); Clarity,Urine Cloudy (Clear); Color,Urine Dark Yellow (Yellow); Glucose,Urine (UA) Normal (Normal); Ketones,Urine 15 mg/dL (Negative); Leukocyte Esterase,Urine Negative (Negative); Nitrite,Urine Negative (Negative); PH,Urine 6.5 pH Units (5.0-8.0); Protein,Urine Trace mg/dL (Neg-Trace); Specific Gravity,Urine 1.025 (1.010-1.025)
[2017-06-02 01:21] LABS: RBC,Urine 0-3 per hpf (0-3); WBC,Urine 0-3 per hpf (0-3)
[2017-06-02] MEDS ORDERED: Naloxone 0.4 MG/ML INJ IVP PRN (01:40)
[2017-06-02] MEDS ORDERED: Ondansetron 4 MG/2 ML VIAL IVP PRN (01:40)
[2017-06-02] MEDS ORDERED: Acetaminophen 325 MG TABLET PO PRN (01:40)
--- NOTE | 2017-06-02 01:40 | Internal Med History&Physical ---
<Sven Lyles - Last Filed: 06/02/17 04:41> Date of Encounter: 06/02/17 Time of Encounter: 01:34 Assessment and Plan (1) Acute respiratory failure with hypoxia Current visit: Yes Status: Acute Of unknown etiology. CXR and pulmonary exam unremarkable. Intubated. Sedated: Propofol Analgesia: fentanyl Consult to pulmonology (2) Chest pain Current visit: No Status: Acute Patient discharged from [facility] ICU to home 06/01/17 after 3 day stay for STEMI: Presenting symptoms: abrupt onset chest pain and heaviness with radiation to bilateral arms. She was intolerant of statins. Presenting troponin .09 prior to LHC. LHC 05/30/17: LVEF 40%. MYAH to mid and proximal LAD. Discharged on aspirin, carvedilol, brilanta. Qualifiers: Chest pain type: unspecified Qualified Code(s): R07.9 - Chest pain, unspecified (3) Elevated troponin Current visit: Yes Status: Acute Potentially secondary to recent STEMI with LHC and DEX x2. Trend CK-MB Consult to cardiology (4) Altered mental status Current visit: Yes Status: Acute Concern for left sided stroke: reported aphasia, right sided motor deficits. CT head showed no acute hemorrhage. MRI head with and without pending. CTA head and neck pending. Consult to neurology Qualifiers: Altered mental status type: unspecified Qualified Code(s): R41.82 - Altered mental status, unspecified Internal Medicine - H&P: HPI Chief complaint: Chest pain, altered mentation Admitted From: Emergency Dept History of present illness: Mrs. Mcgovern is a 81 year old female, presented from home via EMS to the emergency department for evaluation of chest pain and confusion. She was altered with GCS 7, intermittently apnic in the ED, and emergently intubated. Patient had STEMI with LHC 3d ago at this facility with MYAH to proximal and mid LAD. She did well in her course and was discharged from the ICU to home today. Per at bedside, patient did well. This evening, she noted her right arm was hurting "just like before" (3d ago) with chest pain (otherwise unable to be described by the ). He is unsure how long her symptoms persisted. At 21:30 when she said she was going to brush her teeth and go to bed. She attempted to raise from her chair and was unable to do so. assisted her in sitting back down. He describes right sided truncal ataxia, not speaking , staring off, purposeless movement of left upper extremity. She was intermittently apnic while sitting upright. On EMS arrival, she was intermittently bagged and roused with sternal rub. No other EMS intervention prior to ED arrival. PMH: HTN (intolerant of statins), STEMI w/ stent x2. Medications: Coreg, aspiring, brilanta. Past Med Surg Social Fam HX - Past Medical History Medical history: coronary artery disease, myocardial infarction Psychiatric history: no psych history - Social History Smoking Status: Never smoker Smokeless Tobacco Status: No Alcohol use: none Drug use: none Internal Medicine - H&P: Meds Aspirin [Adult Aspirin Regimen] 81 mg PO DAILY #30 tablet. 06/01/17 [Rx] Carvedilol 3.125 mg PO BID #60 tab 06/01/17 [Rx] Ticagrelor [Brilinta] 90 mg PO BID #60 tablet 06/01/17 [Rx] 3 Allergy/AdvReac Type Severity Reaction Status Date / Time ezetimibe [From Zetia] AdvReac Cramping Verified 05/30/17 10:58 of the Muscles fenofibrate [From Tricor] AdvReac Cramping Verified 05/30/17 10:58 of the Muscles rosuvastatin [From Crestor] AdvReac Cramping Verified 05/30/17 10:58 of the Muscles simvastatin AdvReac Cramping Verified 05/30/17 10:58 of the Muscles ROS unobtainable: due to endotracheal tube All Systems PM: A 10-system review of systems was performed and is negative for pertinent findings except as documented above in the HPI. - Constitutional Vitals: Temp Pulse Resp BP Pulse Ox 0 F L 70 12 118/62 100 06/01/17 23:07 06/02/17 00:33 06/02/17 00:33 06/02/17 00:33 06/02/17 00:33 General appearance: Present: A&O X 0 (Intubated. Sedated with precedex. Analgesia with fentanyl.), no acute distress - Head Head exam: Present: atraumatic, normocephalic - Eye Eye exam: Present: PERRL, sclera anicteric. Absent: conjunctival injection - ENT ENT exam: Present: mucous membranes moist, normal external ear exam - Neck Neck exam general surgery: Present: supple, trachea midline - Respiratory Respiratory exam: Present: CTAB. Absent: rales, rhonchi, wheezes Additional comments: Mechanical breath sounds. - Cardiovascular Cardiovascular exam: Present: RRR. Absent: diastolic murmur, systolic murmur - GI/Abdominal GI/Abdominal exam: Present: normal bowel sounds, soft. Absent: distended, hepatomegaly, pulsatile mass, splenomegaly - Extremities Exam Extremities exam: Present: normal capillary refill, warm, radial pulses palpable and symmetrical. Absent: joint swelling, mottling, pedal edema - Neurological Exam Neurological exam: Absent: reflexes normal Additional comments: Sedated, intubated. Patellar reflexes bilaterally 2/4. Normal babinski on left. Absent babinski reflex on right. - Skin Skin exam: Present: dry, intact, normal color, warm. Absent: diaphoretic, erythema, mottled, pallor Internal Med - H&P Results - Labs CBC & Chem 7: 06/01/17 23:30 06/01/17 23:30 - EKG Data -: EKG Interpreted by Myself (RBBB. LAFB. Compared to 05/30/17-no acute ischemic changes.) EKG shows normal: sinus rhythm, axis (left) - Diagnostic Studies Other Images Additional comments: Chest CTA 06/01/17 23:18 IMPRESSION: 1. No definite scan evidence for pulmonary embolus. 2. Right mainstem intubation. The endotracheal tube should be withdrawn 3 cm. 3. Coronary artery disease. D/ / Jonn Gardner MD / Jonn Gardner MD Interpreting Provider: Jonn Gardner MD Head CT 06/01/17 23:18 IMPRESSION: No acute intracranial abnormality. D/ / Jonn Gardner MD / Jonn Gardner MD Interpreting Provider: Jonn Gardner MD Chest X-Ray 06/02/17 02:37 IMPRESSION: 1. The endotracheal tube tip is now 2.5 cm above the parviz. 2. The enteric tube is in good position in the stomach. 3. Increasing left lower lobe atelectasis. D/ / Jonn Gardner MD / Jonn Gardner MD Interpreting Provider: Jonn Gardner MD X-Ray 06/02/17 02:37 IMPRESSION: 1. The endotracheal tube tip is now 2.5 cm above the parviz. 2. The enteric tube is in good position in the stomach. 3. Increasing left lower lobe atelectasis. D/ / Jonn Gardner MD / Jonn Gardner MD Interpreting Provider: Jonn Gardner MD <Mauricio Deleon - Last Filed: 06/02/17 06:31> Date of Encounter: 06/02/17 Time of Encounter: 05:00 Past Med Surg Social Fam HX - Past Medical History Source: old records reviewed, obtained from family, other (ER notes) - Past Surgical History Surgical History: angioplasty/stent - Social History Current living situation: Home, With Family Activity Level: Independent ambulation Recent Out of Country Travel Within the Last 8 Weeks: No - Family History Mother Living Status: Hx Family Cardiac Disorders: Yes Father History Unknown: Yes Living Status: ROS unobtainable: due to endotracheal tube - Constitutional Vitals: Temp Pulse Resp BP Pulse Ox 98.6 F 61 12 94/55 97 06/02/17 02:05 06/02/17 05:00 06/02/17 05:25 06/02/17 05:25 06/02/17 05:25 Exam: patient intubated and sedated; responds to painful and loud stimuli -- does not move her right side of body/extremities; only moves left - Head Head exam: Present: atraumatic, normal inspection - Eye Eye exam: Present: PERRL. Absent: scleral icterus - ENT ENT exam: Present: mucous membranes moist, normal external ear exam Additional comments: ETT and OG in place - Neck Neck exam general surgery: Present: full ROM, supple, trachea midline. Absent: lymphadenopathy, tenderness, nuchal rigidity - Respiratory Respiratory exam: Present: CTAB. Absent: rales, rhonchi, wheezes - Cardiovascular Cardiovascular exam: Present: RRR, +S1, +S2. Absent: diastolic murmur, systolic murmur - GI/Abdominal GI/Abdominal exam: Present: normal bowel sounds, soft - Extremities Exam Extremities exam: Present: normal capillary refill, warm, radial pulses palpable and symmetrical. Absent: calf tenderness, joint swelling, pedal edema - Back Exam Back exam: Present: normal inspection - Neurological Exam Additional comments: Patient intubated and sedated; however, she responds to stimuli appropriately on her left side. No motor function appreciated on her right. I can not elicit any reflexes on her right side. Plantar reflex is down-going on left; purposely moves her right arm and leg. - Skin Skin exam: Present: dry, warm. Absent: rash Internal Med - H&P Results - Labs CBC & Chem 7: 06/02/17 04:55 06/02/17 04:55 Labs: Short CBC 06/02/17 Range/Units 04:55 WBC 8.5 (4.3-11.1) K/mcL Hgb 11.2 L (11.5-15.4) g/dL Hct 34.4 L (35.3-44.9) % Plt Count 122 L (140-400) K/mcL Neutrophils # 7.2 (1.6-8.9) K/mcL BMP 06/02/17 04:55 Sodium 137 Potassium 4.1 Chloride 108 H Carbon Dioxide 24 BUN 18 Creatinine 0.55 L Glucose 207 H Calcium 7.9 L Cardiac Enzymes 06/02/17 Range/Units 04:55 Troponin I 1.76 H* (< 0.04) ng/mL - ABG Interpretation ABG results: 06/02/17 05:04 ABG pH 7.41 ABG pCO2 43 ABG pO2 118 H D ABG HCO3 27 ABG Total CO2 28 H ABG O2 Saturation 99 H ABG Base Excess 2 - EKG Data -: EKG Interpreted by Myself EKG shows normal: sinus rhythm - EKG Data EKG comments: 06/02/17 06:17 NSR; RBBB; no acute changes - Impressions ITS Impressions Chest X-Ray 06/02/17 02:37 IMPRESSION: 1. The endotracheal tube tip is now 2.5 cm above the parviz. 2. The enteric tube is in good position in the stomach. 3. Increasing left lower lobe atelectasis. D/ / Jonn Gardner MD / Jonn Gardner MD Interpreting Provider: Jonn Gardner MD X-Ray 06/02/17 02:37 IMPRESSION: 1. The endotracheal tube tip is now 2.5 cm above the parviz. 2. The enteric tube is in good position in the stomach. 3. Increasing left lower lobe atelectasis. D/ / Jonn Gardner MD / Jonn Gardner MD Interpreting Provider: Jonn Gardner MD - Diagnostic Studies Chest x-ray Status: image reviewed by me (ETT in place; suspect atelectasis) - Attending Attestation I discussed the patient [place], pertinent ROS, lab data, and exam findings with Dr. Lyles. I then saw, evaluated patient, and met with family at length. Patient was just discharged from ICU yesterday and returns now with acute onset of neurologic decompensation. She was intubated emergently in ER for airway protection and periods of apnea. Patient's notes patient developed sudden onset of right sided weakness, numbness, expressive aphasia, and leaning to her right yesterday. Exact time of symptom onset is unknown and family members are unable to verify exact time. Given the symptoms upon presentation and currently, I am concerned she developed an acute stroke. I discussed with family that we will consult neurology to assist with work-up and management; however, neurologic assessments are limited now due to sedation. I agree with MRI brain and recommend CTA of head and neck to evaluate for critical neuro-vascular obstruction. We will maintain her on mechanical ventilation, check and correct labs as necessary, trend troponins, and monitor her hemodynamically. Of note, patient had + UDS for opiates and Marijuana. Other than my comments above and noted exam findings, I agree with Dr. Lyles' s assessment and plan. Total 45 minutes critical care time spent evaluating, managing, and coordinating her care with Dr. Lyles and her nurse.
[2017-06-02] MEDS ORDERED: Lacri-Lube 3.5 GM TUBE BOTH EYES PRN (01:43)
[2017-06-02] MEDS ORDERED: 0.9 % Sodium Chloride w KCl 20 MEQ/1,000 ML MLS IVC SCH (01:45)
[2017-06-02] MEDS: FentaNYL (PF) 1,000 MCG in 0.9 % Sodium Chloride 80 ML IVC SCH ×2 (01:48→18:29)
[2017-06-02 02:20] LABS: Magnesium 2.1 mg/dL (1.6-2.6)
[2017-06-02] MEDS: Lacri-Lube 3.5 GM TUBE BOTH EYES SCH ×5 (04:36→20:35)
--- NOTE | 2017-06-02 04:42 | Pulmonology Consult Note ---
<Sven Lyles - Last Filed: 06/02/17 04:40> Date of Encounter: 06/02/17 Time of Encounter: 04:40 Assessment and Plan (1) Acute respiratory failure with hypoxia Current Visit: Yes Status: Acute Of unknown etiology. Reportedly intermittently apnic at home, en route by EMS, and on arrival to ED. Emergently intubated for intermittent apnic spells and GCS 7. Urine tox (+) for opiates & THC. Pupils equally round and reactive; no pinpoint. CXR concerning for possible LLL atelectasis. CTA chest shows no PE. Does show CAD. Will attempt wean to CPAP trial for eventual extubation. (3) Elevated troponin Current Visit: Yes Status: Acute Patient discharged from [facility] ICU to home 06/01/17 after 3 day stay for STEMI: [facility] 05/30/17: LVEF 40%. MYAH to mid and proximal LAD. Trop on intake 3.33. Uncertain if sequale from known prior STEMI. Will trend [facility]. Consult to cardiology. (4) Altered mental status Current Visit: Yes Status: Acute At home, patient reportedly aphasic, right trunkal ataxia, unable to move right arm. CT head negative. Will MRI head with & without. CTA head/neck pending. Echo cardiogram pending (looking for mural thrombus). Consult to neurology. Qualifiers: Altered mental status type: unspecified Qualified Code(s): R41.82 - Altered mental status, unspecified History of Present Illness Consult date: 06/02/17 Requesting physician: Sven Lyles Reason for consult: other (Respiratory failure; intubated.) Chief complaint: altered mentation, intermittent apnea History of present illness: Mrs. Mcgovern is a 81 year old female, presented from home via EMS to the emergency department for evaluation of chest pain and confusion. She was altered with GCS 7, intermittently apnic in the ED, and emergently intubated. Patient had STEMI with C 3d ago at this facility with MYAH to proximal and mid LAD. She did well in her course and was discharged from the ICU to home today. Per at bedside, patient did well. This evening, she noted her right arm was hurting "just like before" (3d ago) with chest pain (otherwise unable to be described by the ). He is unsure how long her symptoms persisted. At 21:30 when she said she was going to brush her teeth and go to bed. She attempted to raise from her chair and was unable to do so. assisted her in sitting back down. He describes right sided truncal ataxia, not speaking , staring off, purposeless movement of left upper extremity. She was intermittently apnic while sitting upright. On EMS arrival, she was intermittently bagged and roused with sternal rub. No other EMS intervention prior to ED arrival. PMH: HTN (intolerant of statins), STEMI w/ stent x2. Medications: Coreg, aspiring, brilanta. Habits: no tobacco smoking, no EtOH, no illicit substances. Past Med Surg Social Fam HX - Past Medical History Medical history: coronary artery disease, myocardial infarction Psychiatric history: no psych history - Social History Smoking Status: Never smoker Smokeless Tobacco Status: No Alcohol use: none Drug use: none Medications and Allergies Aspirin [Adult Aspirin Regimen] 81 mg PO DAILY #30 tablet. 06/01/17 [Rx] Carvedilol 3.125 mg PO BID #60 tab 06/01/17 [Rx] Ticagrelor [Brilinta] 90 mg PO BID #60 tablet 06/01/17 [Rx] 3 Allergy/AdvReac Type Severity Reaction Status Date / Time ezetimibe [From Zetia] AdvReac Cramping Verified 05/30/17 10:58 of the Muscles fenofibrate [From Tricor] AdvReac Cramping Verified 05/30/17 10:58 of the Muscles rosuvastatin [From Crestor] AdvReac Cramping Verified 05/30/17 10:58 of the Muscles simvastatin AdvReac Cramping Verified 05/30/17 10:58 of the Muscles ROS unobtainable: due to endotracheal tube All Systems: The remainder of the systems were reviewed and are negative Physical Examination Vital Signs: Vital Signs, Last 4 Hours Temp Pulse Resp BP Pulse Ox 06/02/17 03:28 12 110/59 99 06/02/17 03:00 64 12 107/76 99 06/02/17 02:30 12 118/57 06/02/17 02:17 13 100 06/02/17 02:05 98.6 F 64 12 136/81 99 06/02/17 01:56 66 12 104/60 100 General appearance: no acute distress Eyes: nonicteric ENT: oropharynx moist Neck: supple Effort: normal Inspection: normal Auscultation: bilateral: clear Cardiovascular: regular rate and rhythm Gastrointestinal: normoactive bowel sounds, soft, non-distended, hepatomegaly Integumentary: normal Extremities: no cyanosis, no edema, no clubbing, pink and warm, pulses normal, no ischemia or petechiae Musculoskeletal: no deformities unable to assess due to mental status, other (Patellar reflexes 2/4 bilaterally. Left babinski normal. Right babinski absent.) Ventilator Settings Ventilator Settings: Ventilator Settings, Last 8 Hours Ventilator Mode A/C Ventilator Mode A/C Ventilator Mode A/C Ventilator Mode A/C Ventilator Tidal Volume 400 Setting Ventilator Tidal Volume 400 Setting Ventilator Tidal Volume 400 Setting Ventilator Tidal Volume 400 Setting Ventilator Respiratory Rate 12 Setting Ventilator Respiratory Rate 12 Setting Ventilator Respiratory Rate 12 Setting Ventilator Respiratory Rate 12 Setting Actual Respiratory Rate 12 Actual Respiratory Rate 12 Actual Respiratory Rate 13 Actual Respiratory Rate 12 Positive End Expiratory 5 Pressure Positive End Expiratory 5 Pressure Positive End Expiratory 5 Pressure Positive End Expiratory 5 Pressure Peak Inspiratory Airway 23 Pressure Peak Inspiratory Airway 23 Pressure Peak Inspiratory Airway 25 Pressure Peak Inspiratory Airway 24 Pressure Results - Laboratory Findings CBC and BMP: 06/01/17 23:30 06/01/17 23:30 ABG ABG pH 7.42 pH Units (7.32-7.45) 06/01/17 23:38 ABG pCO2 40 mmHg (35-45) 06/01/17 23:38 ABG pO2 68 mmHg (85-104) L 06/01/17 23:38 ABG O2 Saturation 94 % (95-98) L 06/01/17 23:38 PT/INR, D-dimer PT 15.0 Seconds (9.4-12.1) H 06/02/17 00:09 Abnormal lab findings: Abnormal lab results RBC 3.63 M/mcL (3.82-4.97) L 06/01/17 23:30 Hgb 11.4 g/dL (11.5-15.4) L 06/01/17 23:30 Hct 35.1 % (35.3-44.9) L 06/01/17 23:30 Plt Count 131 K/mcL (140-400) L 06/01/17 23:30 Immature Plt Fraction 9.5 % (1.1-6.1) H 06/01/17 23:30 PT 15.0 Seconds (9.4-12.1) H 06/02/17 00:09 ABG pO2 68 mmHg (85-104) L 06/01/17 23:38 ABG Total CO2 27 mEq/L (20-26) H 06/01/17 23:38 ABG O2 Saturation 94 % (95-98) L 06/01/17 23:38 Potassium 3.3 mEq/L (3.5-5.1) L 06/01/17 23:30 Chloride 108 mEq/L (98-107) H 06/01/17 23:30 BUN/Creatinine Ratio 32 (6-26) H 06/01/17 23:30 Glucose 146 mg/dL (70-105) H 06/01/17 23:30 POC Glucose 148 (58-89) H 06/01/17 23:07 Calcium 8.0 mg/dL (8.6-10.3) L 06/01/17 23:30 AST 51 Units/L (13-39) H 06/01/17 23:30 Troponin I 3.33 ng/mL (< 0.04) H* 06/01/17 23:30 B-Natriuretic Peptide 424 pg/mL (Less than 100) H 06/02/17 00:10 Serum Total Protein 5.3 g/dL (6.4-8.9) L 06/01/17 23:30 Albumin 2.9 g/dL (3.5-5.7) L 06/01/17 23:30 Urine Clarity Cloudy (Clear) A 06/01/17 23:31 Urine Ketones 15 mg/dL (Negative) H 06/01/17 23:31 Urine Bilirubin Small (Negative) H 06/01/17 23:31 Urine Urobilinogen 2.0 mg/dL (Normal) H 06/01/17 23:31 Urine Opiates Screen Positive ng/mL (Oaejvu=781) H 06/01/17 23:31 U Marijuana (THC) Screen Positive ng/mL (Cutoff = 50) H 06/01/17 23:31 - Clinical Findings Intake & Output: Intake & Output 06/01/17 06/01/17 06/02/17 15:59 23:59 07:59 Intake Total 35 / 35 Balance 35 / 35 Weight 59.7 kg Consult Discharge Plan - Plan Referrals: Kateryna Aldridge, FORENSIC COMPUTER EXAMINER [Primary Care Provider] - <Coleman Wild Bernabe - Last Filed: 06/02/17 23:00> Date of Encounter: 06/02/17 All Systems: The remainder of the systems were reviewed and are negative Physical Examination Vital Signs: Vital Signs, Last 4 Hours Temp Pulse Resp BP Pulse Ox 06/02/17 22:00 71 14 94/52 100 06/02/17 21:56 13 95/55 99 06/02/17 21:00 72 14 98/58 98 06/02/17 20:00 68 15 105/56 98 06/02/17 19:56 14 118/66 98 06/02/17 19:50 100.6 F H 06/02/17 19:00 69 14 118/66 98 Ventilator Settings Ventilator Settings: Ventilator Settings, Last 8 Hours Ventilator Mode A/C Ventilator Mode A/C Ventilator Mode A/C Ventilator Mode A/C Ventilator Mode A/C Ventilator Mode A/C Ventilator Mode A/C Ventilator Mode A/C Ventilator Mode A/C Ventilator Mode A/C Ventilator Mode A/C Ventilator Tidal Volume 400 Setting Ventilator Tidal Volume 400 Setting Ventilator Tidal Volume 400 Setting Ventilator Tidal Volume 400 Setting Ventilator Tidal Volume 400 Setting Ventilator Tidal Volume 400 Setting Ventilator Tidal Volume 400 Setting Ventilator Tidal Volume 400 Setting Ventilator Tidal Volume 400 Setting Ventilator Tidal Volume 400 Setting Ventilator Tidal Volume 400 Setting Ventilator Respiratory Rate 12 Setting Ventilator Respiratory Rate 12 Setting Ventilator Respiratory Rate 12 Setting Ventilator Respiratory Rate 12 Setting Ventilator Respiratory Rate 12 Setting Ventilator Respiratory Rate 12 Setting Ventilator Respiratory Rate 12 Setting Ventilator Respiratory Rate 12 Setting Ventilator Respiratory Rate 12 Setting Ventilator Respiratory Rate 12 Setting Ventilator Respiratory Rate 12 Setting Actual Respiratory Rate 14 Actual Respiratory Rate 13 Actual Respiratory Rate 14 Actual Respiratory Rate 15 Actual Respiratory Rate 15 Actual Respiratory Rate 14 Actual Respiratory Rate 12 Actual Respiratory Rate 12 Actual Respiratory Rate 12 Actual Respiratory Rate 12 Actual Respiratory Rate 12 Positive End Expiratory 5 Pressure Positive End Expiratory 5 Pressure Positive End Expiratory 5 Pressure Positive End Expiratory 5 Pressure Positive End Expiratory 5 Pressure Positive End Expiratory 5 Pressure Positive End Expiratory 5 Pressure Positive End Expiratory 5 Pressure Positive End Expiratory 5 Pressure Positive End Expiratory 5 Pressure Positive End Expiratory 5 Pressure Peak Inspiratory Airway 27 Pressure Peak Inspiratory Airway 27 Pressure Peak Inspiratory Airway 25 Pressure Peak Inspiratory Airway 25 Pressure Peak Inspiratory Airway 25 Pressure Peak Inspiratory Airway 24 Pressure Peak Inspiratory Airway 24 Pressure Peak Inspiratory Airway 25 Pressure Peak Inspiratory Airway 24 Pressure Peak Inspiratory Airway 24 Pressure Peak Inspiratory Airway 24 Pressure Results - Laboratory Findings CBC and BMP: 06/02/17 04:55 06/02/17 04:55 ABG ABG pH 7.41 pH Units (7.32-7.45) 06/02/17 05:04 ABG pCO2 43 mmHg (35-45) 06/02/17 05:04 ABG pO2 118 mmHg (85-104) H D 06/02/17 05:04 ABG O2 Saturation 99 % (95-98) H 06/02/17 05:04 PT/INR, D-dimer PT 15.0 Seconds (9.4-12.1) H 06/02/17 00:09 Abnormal lab findings: Abnormal lab results RBC 3.55 M/mcL (3.82-4.97) L 06/02/17 04:55 Hgb 11.2 g/dL (11.5-15.4) L 06/02/17 04:55 Hct 34.4 % (35.3-44.9) L 06/02/17 04:55 Plt Count 122 K/mcL (140-400) L 06/02/17 04:55 Immature Plt Fraction 9.5 % (1.1-6.1) H 06/01/17 23:30 PT 15.0 Seconds (9.4-12.1) H 06/02/17 00:09 APTT 86.5 Seconds (26.0-36.0) H D 06/02/17 14:21 ABG pO2 118 mmHg (85-104) H D 06/02/17 05:04 ABG Total CO2 28 mEq/L (20-26) H 06/02/17 05:04 ABG O2 Saturation 99 % (95-98) H 06/02/17 05:04 Chloride 108 mEq/L (98-107) H 06/02/17 04:55 Creatinine 0.55 mg/dL (0.60-1.20) L 06/02/17 04:55 BUN/Creatinine Ratio 33 (6-26) H 06/02/17 04:55 Glucose 207 mg/dL (70-105) H 06/02/17 04:55 POC Glucose 110 (58-89) H 06/02/17 11:40 Calcium 7.9 mg/dL (8.6-10.3) L 06/02/17 04:55 Phosphorus 2.2 mg/dL (2.7-4.5) L 06/02/17 04:55 AST 51 Units/L (13-39) H 06/01/17 23:30 Troponin I 1.67 ng/mL (< 0.04) H* 06/02/17 14:21 B-Natriuretic Peptide 424 pg/mL (Less than 100) H 06/02/17 00:10 Serum Total Protein 5.3 g/dL (6.4-8.9) L 06/01/17 23:30 Albumin 2.9 g/dL (3.5-5.7) L 06/01/17 23:30 Urine Clarity Cloudy (Clear) A 06/01/17 23:31 Urine Ketones 15 mg/dL (Negative) H 06/01/17 23:31 Urine Bilirubin Small (Negative) H 06/01/17 23:31 Urine Urobilinogen 2.0 mg/dL (Normal) H 06/01/17 23:31 - Clinical Findings Intake & Output: Intake & Output 06/02/17 06/02/17 06/02/17 07:59 15:59 23:59 Intake Total 351 / 351 668 / 668 1148 / 1148 Output Total 400 / 400 200 / 200 250 / 250 Balance -49 / -49 468 / 468 898 / 898 Weight 59.7 kg - Attending Attestation I saw and evaluated this patient and my medical decision-making was reviewed with the Resident Physician. I agree with the documented findings, disposition and treatment plan as described except to the extent set forth below. We independently had [id number] contact with the patient I spent 40 minutes of Critical Care time with this patient. It involved decision making of high complexity to assess, manipulate, and support vital organ system failure and/or to prevent further life threatening deterioration of the patient's condition. The time involved in the performance of separately reportable procedures was not counted toward critical care time. 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 No salvegable procedures can be done spoke with Neurointensivist . [facility] Patient is intubated and ventilated acceptable oxygenation and ventilation .. Cards:WA has LAD stent on dual antiplatelet therapy now with NSTEMI FEN-GI: Start tube feeds Renal:Labs and output reviewed ID: No active issues Heme/Onc:Labs reviewed Endo: Glucose Monitored Integ/MSK: Skin Care per routine ICU Nursing Protocol to prevent ulcers. Lines: All lines examined without evidence of infection : Dispo: Critically ill CODE:Full Code Spoke with Family about poor prognosis .
[2017-06-02 05:07] LABS: ABG Base Excess 2 mEq/L (-2 to 3); ABG HCO3 27 mEq/L (21-27); ABG Oxygen Saturation 99 % (95-98); ABG PCO2 43 mmHg (35-45); ABG PH 7.41 pH Units (7.32-7.45); ABG PO2 118 mmHg (85-104); ABG TCO2 28 mEq/L (20-26); Blood Gas Modality ASSIST CONTROL; Blood Gas VT 400 cc
[2017-06-02 05:10] LABS: Basophils % 0.1 %; Hematocrit 34.4 % (35.3-44.9); Hemoglobin 11.2 g/dL (11.5-15.4); Immature Granulocytes % 0.4 % (0-4); Lymphocytes # 0.9 K/mcL (0.6-4.6); Lymphocytes % 10.7 %; Mean Corpuscular HGB Conc 32.6 g/dL (31.6-35.5); Mean Corpuscular Hemoglobin 31.5 pg (28.0-33.3); Mean Corpuscular Volume 96.9 fL (83.0-100.0); Mean Platelet Volume 11.6 fL (9.4-12.4); Monocytes # 0.4 K/mcL (0.0-1.3); Monocytes % 4.9 %; Neutrophils # 7.2 K/mcL (1.6-8.9); Platelet Count 122 K/mcL (140-400); Red Blood Count 3.55 M/mcL (3.82-4.97); Red Cell Distribution Width 12.8 % (11.5-14.5); Segmented Neutrophils % 83.9 %
[2017-06-02 05:48] LABS: BUN/Creatinine Ratio 33 (6-26); Blood Urea Nitrogen 18 mg/dL (8-23); Calcium 7.9 mg/dL (8.6-10.3); Carbon Dioxide 24 mEq/L (23-29); Chloride 108 mEq/L (98-107); Glucose 207 mg/dL (70-105); Osmolality,Calculated 292 (280-300); Phosphorous 2.2 mg/dL (2.7-4.5); Potassium 4.1 mEq/L (3.5-5.1); Sodium 137 mEq/L (136-145); eGFR For African Americans > 60 (> 60); eGFR For Non-African Americans > 60 (> 60)
[2017-06-02] MEDS ORDERED: Potassium Phosphate 44 MEQ in 0.9 % Sodium Chloride 250 ML IVPB PRN (06:14)
[2017-06-02] MEDS: Chlorhexidine Rinse 15 ML MOUTHWASH MM SCH ×2 (07:48→20:42)
[2017-06-02] MEDS ORDERED: *HR* Rocuronium Bromide 100 MG/10 ML VIAL IVC ONE (07:58)
[2017-06-02] MEDS ORDERED: *HR* Etomidate 20 MG/10 ML AMPUL IVP ONE (07:58)
[2017-06-02] MEDS ORDERED: *HR* Heparin 5,000 UNIT/ML VIAL IVP PRN ×2 (08:55)
--- NOTE | 2017-06-02 08:55 | Neurology - Consult Note ---
Date of Encounter: 06/02/17 Time of Encounter: 08:49 Assessment and Plan (1) Acute cerebral infarction Current Visit: Yes Status: Acute This patient has unfortunately suffered as significant left hemispheric event. Given the scenario would likely dealing with an acute cerebral infarct involving the territory of the left middle cerebral artery. Certainly a cardioembolic source should be entertained, as she was a thromboembolic event involving the left carotid circulation, versus thrombus due to stenosis of the left internal carotid artery circulation. She does have a history of significant coronary artery disease so we should also consider the possibility of an intracranial stenosis as well. Unfortunately this juncture she is not a candidate for any aggressive intervention. She is beyond the timeframe for TPA or other aggressive interventions. We will obtain a CTA scan of the brain and of the neck. We will also obtain MRI scan of the brain with diffusion images. She is already on antiplatelet therapy. We should allow her to run a bit hypertensive in order to maximize cerebral blood flow to the ischemic region.. Avoid glucose in IV solutions. I may can consider mannitol if she begins to develop cerebral edema. Stroke protocol nursing orders should be implemented. Further interventions will be made pending the outcome of the imaging studies. Total time spent providing critical care was 60 minutes. Case was discussed with the ICU attending. History of Present Illness HPI: Ms. Mcgovern is a 81 year old female who was recently admitted on 05/30/2017 secondary to chest pain and was ultimately diagnosed with MRI. Cardiac catheterization on that day. She was released from the hospital just yesterday. The history is provided by the patient's . He states that at around 9:30 yesterday evening she seemed to have him strange feeling in the right arm he stated. She stated that at about 10:00 she was going to go brush her teeth and getting ready for bed. She suddenly started leaning toward the right side and was unable to speak. She abruptly lost consciousness. Her states that he would have difficulty breathing at times and EMS arrived and started backing her. She was immediately transported to [facility] for further assessment. She was intubated. Stat CT scan of the brain revealed no evidence of acute infarct. 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 Patient has been unresponsive ever since admission. She has not had any seizure activity. Apparently TPA was not considered because of questionable timeframe of events. At this point however she is beyond the window for TPA and for other acute interventions. Past Med Surg Social Fam HX - Past Medical History Medical history: coronary artery disease, myocardial infarction Psychiatric history: no psych history - Past Surgical History Surgical History: angioplasty/stent - Social History Smoking Status: Never smoker Smokeless Tobacco Status: No Alcohol use: none Drug use: none - Family History Mother Living Status: Hx Family Cardiac Disorders: Yes Father History Unknown: Yes Living Status: Medications and Allergies Aspirin [Adult Aspirin Regimen] 81 mg PO DAILY #30 tablet. 06/01/17 [Rx] Carvedilol 3.125 mg PO BID #60 tab 06/01/17 [Rx] Ticagrelor [Brilinta] 90 mg PO BID #60 tablet 06/01/17 [Rx] 3 Allergy/AdvReac Type Severity Reaction Status Date / Time ezetimibe [From Zetia] AdvReac Cramping Verified 05/30/17 10:58 of the Muscles fenofibrate [From Tricor] AdvReac Cramping Verified 05/30/17 10:58 of the Muscles rosuvastatin [From Crestor] AdvReac Cramping Verified 05/30/17 10:58 of the Muscles simvastatin AdvReac Cramping Verified 05/30/17 10:58 of the Muscles ROS unobtainable: due to mental status All Systems: The remainder of the systems were reviewed and are negative Physical Examination - Vital Signs Vital Signs: Initial Vital Signs Temp Pulse Resp BP Pulse Ox 0 F L 78 12 112/78 100 06/01/17 23:07 06/01/17 23:07 06/01/17 23:07 06/01/17 23:07 06/01/17 23:07 - Exam Exam: Neurologic examination is performed and findings of following: Mental status-she is unresponsive. She does have eye-opening to tactile stimuli , however she does not fixate on the examiner. She does not follow commands. She does however have spontaneous movements of the left upper and lower extremities. She does appear to be uncomfortable when sedation is lifted. Cranial nerves-pupils are equal and reactive doll's eyes are intact. She does not breathe above the vent. Motor exam findings flaccid paralysis of the right upper and right lower extremities. She moves the left upper and left lower extremities freely. There are no involuntary movements identified. Sensory examination is difficult to assess in the comatose patient. No Babinski or clonus identified. Results - Laboratory Findings CBC and BMP: 06/02/17 04:55 06/02/17 04:55 Abnormal lab findings: Abnormal lab results RBC 3.55 M/mcL (3.82-4.97) L 06/02/17 04:55 Hgb 11.2 g/dL (11.5-15.4) L 06/02/17 04:55 Hct 34.4 % (35.3-44.9) L 06/02/17 04:55 Plt Count 122 K/mcL (140-400) L 06/02/17 04:55 Immature Plt Fraction 9.5 % (1.1-6.1) H 06/01/17 23:30 PT 15.0 Seconds (9.4-12.1) H 06/02/17 00:09 APTT 47.0 Seconds (26.0-36.0) H D 06/02/17 07:17 ABG pO2 118 mmHg (85-104) H D 06/02/17 05:04 ABG Total CO2 28 mEq/L (20-26) H 06/02/17 05:04 ABG O2 Saturation 99 % (95-98) H 06/02/17 05:04 Chloride 108 mEq/L (98-107) H 06/02/17 04:55 Creatinine 0.55 mg/dL (0.60-1.20) L 06/02/17 04:55 BUN/Creatinine Ratio 33 (6-26) H 06/02/17 04:55 Glucose 207 mg/dL (70-105) H 06/02/17 04:55 POC Glucose 148 (58-89) H 06/01/17 23:07 Calcium 7.9 mg/dL (8.6-10.3) L 06/02/17 04:55 Phosphorus 2.2 mg/dL (2.7-4.5) L 06/02/17 04:55 AST 51 Units/L (13-39) H 06/01/17 23:30 Troponin I 1.76 ng/mL (< 0.04) H* 06/02/17 04:55 B-Natriuretic Peptide 424 pg/mL (Less than 100) H 06/02/17 00:10 Serum Total Protein 5.3 g/dL (6.4-8.9) L 06/01/17 23:30 Albumin 2.9 g/dL (3.5-5.7) L 06/01/17 23:30 Urine Clarity Cloudy (Clear) A 06/01/17 23:31 Urine Ketones 15 mg/dL (Negative) H 06/01/17 23:31 Urine Bilirubin Small (Negative) H 06/01/17 23:31 Urine Urobilinogen 2.0 mg/dL (Normal) H 06/01/17 23:31 Urine Opiates Screen Positive ng/mL (Wmdxik=154) H 06/01/17 23:31 U Marijuana (THC) Screen Positive ng/mL (Cutoff = 50) H 06/01/17 23:31 Consult Discharge Plan - Plan Referrals: Kateryna Aldridge, SHAREPOINT DESIGNER DEVELOPER [Primary Care Provider] -
--- NOTE | 2017-06-02 09:22 | Cardiology Consult Note ---
<Joe Alas - Last Filed: 06/02/17 11:31> Date of Encounter: 06/02/17 Time of Encounter: 09:15 Assessment and Plan (1) Acute cerebral infarction Current Visit: Yes Status: Acute Cerebral MRI results noted. It is noted that there is no hemorrhage. With acute CVA there is possibility of hemorrhagic conversion. Patient is requiring DAPT with asa and brilinta uninterrupted for a minimum of one year for multiple PCI to the LAD. Interruption of DAPT therapy could be catastrophic for the patient. We appreciate neurology recommendation for antiplatelet therapy in the setting of acute CVA. (2) CAD (coronary artery disease) Current Visit: Yes Status: Chronic S/p STEMI 05/30/17 with PCI with MYAH x3 to the LAD. There was an 80% stenosis in the mLAD with plan for staged PCI in 2-3 weeks. EF 40% on LHC. TTE-LVEF 45-50%. Low normal to mildly reduced LV systolic dysfunction with regional variations (see Diagram below). Normal right ventricular structure and function. Mild mitral regurgitation. Moderate tricuspid regurgitation. Mild pulmonary hypertension.There is a small pericardial effusion present near the inferolateral wall. There is no echocardiographic evidence of tamponade. On asa, brilinta, and bb. Not on statin due to allergy. Qualifiers: Coronary Disease-Associated Artery/Lesion type: [place] artery [place] vs. transplanted heart: [place] heart Associated angina: angina presence unspecified Qualified Code(s): I25.10 - Atherosclerotic heart disease of [place] coronary artery without angina pectoris (3) Elevated troponin Current Visit: Yes Status: Acute Troponin elevation 3.33 and 1.76 likely trending down from recent STEMI. No troponin trend during recent stay due to emergent LHC and PCI. Continue asa and brilinta. Restart carvedilol when able. WIll not lower b/p significantly in the setting of possible acute CVA. Discussion w patient/family: The assessment and plan as outlined above was discussed with the patient and/or family members who expressed understanding and agreement. All questions were answered. Thank you for involving us in the care of your patient. Please call with any questions. History of Present Illness Consult date: 06/02/17 Requesting physician: Mauricio Deleon Consult reason: Recent RI, returns with CVA symptoms Chief complaint: right sided weakness and difficulty speaking History of present illness: Ms. Mcgovern is a 81 year old female with a past medical history of recent STEMI 05/30/17 s/p PCI x3 to the LAD, breast cancer s/p mastectomy, and hyperlipidemia who presented with right sided weakness, difficulty speaking, and difficulty breathing. states that she was doing well initially when she arrived home yesterday after being discharged home from the hospital. He only noticed that she was weak from her recent heart attack. She did take her brilinta and asa as prescribed that evening. Later that evening she c/o feeling unwell and had mild right arm pain. The said he was concerned because she had severe bilateral arm pain with her RI. Later he noticed she was slumping in her chair to the right side and she could not speak. He called for EMS. Once EMS arrived she required assistance with her breathing. While in the ER she was intubated and sedated. Past Med Surg Social Fam HX - Past Medical History Medical history: coronary artery disease, myocardial infarction Psychiatric history: no psych history - Past Surgical History Surgical History: angioplasty/stent - Social History Smoking Status: Never smoker Smokeless Tobacco Status: No Alcohol use: none Drug use: none - Family History Mother Living Status: Hx Family Cardiac Disorders: Yes Father History Unknown: Yes Living Status: Medications and Allergies Aspirin [Adult Aspirin Regimen] 81 mg PO DAILY #30 tablet. 06/01/17 [Rx] Carvedilol 3.125 mg PO BID #60 tab 06/01/17 [Rx] Ticagrelor [Brilinta] 90 mg PO BID #60 tablet 06/01/17 [Rx] 3 Allergy/AdvReac Type Severity Reaction Status Date / Time ezetimibe [From Zetia] AdvReac Cramping Verified 05/30/17 10:58 of the Muscles fenofibrate [From Tricor] AdvReac Cramping Verified 05/30/17 10:58 of the Muscles rosuvastatin [From Crestor] AdvReac Cramping Verified 05/30/17 10:58 of the Muscles simvastatin AdvReac Cramping Verified 05/30/17 10:58 of the Muscles All Systems Review: The remainder of the systems were reviewed and are negative Physical Examination Vital Signs, Last 4 Hours Pulse Resp BP Pulse Ox 06/02/17 08:00 61 12 119/66 98 06/02/17 07:23 12 100/55 100 06/02/17 07:00 61 06/02/17 06:00 61 12 89/50 97 06/02/17 05:25 12 94/55 97 General: No Apparent Distress, Other (sedated) HEENT: Atraumatic, Normocephaly, Mucus Membranes Moist Neck: No JVD, Normal carotid pulses Cardiac: Reg Rate and Rhythm, Normal S1 and S2, No Murmur Lungs: Other (Requiring ventilator support. No distress noted.) Neuro: Other (Unable to assess due to sedation.) Abdomen: Soft, Non-Tender Skin: No rashes noted on visualized skin Extremities: No Edema, Normal Pulses Results 06/02/17 04:55 06/02/17 04:55 Lab Results 06/02/17 06/02/17 06/02/17 04:55 04:55 04:55 WBC 8.5 Hgb 11.2 L Hct 34.4 L Plt Count 122 L APTT Sodium 137 Potassium 4.1 Chloride 108 H Carbon Dioxide 24 BUN 18 Creatinine 0.55 L Glucose 207 H Calcium 7.9 L Magnesium 2.0 Troponin I 1.76 H* 06/02/17 07:17 WBC Hgb Hct Plt Count APTT 47.0 H D Sodium Potassium Chloride Carbon Dioxide BUN Creatinine Glucose Calcium Magnesium Troponin I Chest CTA 06/01/17 23:18 IMPRESSION: 1. No definite scan evidence for pulmonary embolus. 2. Right mainstem intubation. The endotracheal tube should be withdrawn 3 cm. 3. Coronary artery disease. D/ / Jnon Gardner MD / Jonn Gardner MD Interpreting Provider: Jonn Gardner MD Head CT 06/01/17 23:18 IMPRESSION: No acute intracranial abnormality. D/ / Jonn Gardner MD / Jonn Gardner MD Interpreting Provider: Jonn Gardner MD Chest X-Ray 06/02/17 02:37 IMPRESSION: 1. The endotracheal tube tip is now 2.5 cm above the parviz. 2. The enteric tube is in good position in the stomach. 3. Increasing left lower lobe atelectasis. D/ / Jonn Gardner MD / Jonn Gardner MD Interpreting Provider: Jonn Gardner MD X-Ray 06/02/17 02:37 IMPRESSION: 1. The endotracheal tube tip is now 2.5 cm above the parviz. 2. The enteric tube is in good position in the stomach. 3. Increasing left lower lobe atelectasis. D/ / Jonn Gardner MD / Jonn Gardner MD Interpreting Provider: Jonn Gardner MD Brain MRI 06/02/17 08:35 IMPRESSION: 1. Large acute left middle cerebral artery territory infarction affecting the left frontal and temporal lobes. No associated hemorrhage. Cytotoxic edema with sulcal effacement and mild left lateral ventricle effacement. 2. Loss of flow void in the left internal carotid artery and M1 segment of the middle cerebral artery consistent with occlusion. The findings were sent to the Radiology Results Communication Center at 11:04 am on 06/02/2017to be communicated to a licensed caregiver. D/ / 06/02/2017 11:07:38 Erick Palumbo MD / ramy Interpreting Provider: Erick Palumbo MD - EKG Interpretation EKG results cardiology: personally reviewed (SR with old anterior RI, incomplete RBBB) Consult Discharge Plan - Plan Referrals: Kateryna Aldridge [employer]OR[employer] TECHNICIAN [Primary Care Provider] - <Ciara Luis - Last Filed: 06/02/17 14:21> Date of Encounter: 06/02/17 - Attending Attestation I examined this patient and my medical decision-making was reviewed with the MASTER [employer]OR[employer]CLE TECHNICIAN. I agree with the documented findings, disposition and treatment plan as described. Ms. Mcgovern was recently discharged from [facility] after having undergone LHC and receiving PCI to LAD. On the day of discharge, while at home, she experienced unilateral weakness and difficulty breathing. She was subsequently intubated in the ER upon arrival. Initially, CT head demonstrated no acute abnormality. She then underwent brain MRI showing left hemispheric ischemic event. Head and Neck CTA results pending. Will defer to Neurology to help guide management. Ideally, given recent PCI would recommend continuing DAPT. No evidence for hemorrhagic conversion on imaging study. In regards to troponin elevation, this may represent a downtrend from recent STEMI. However, troponin elevation can be present in setting of acute CVA. Recommend continuing antiplatelet therapy at this time. Further recommendations pending results of testing and clinical course. Assessment and Plan Discussion w patient/family: The assessment and plan as outlined above was discussed with the patient and/or family members who expressed understanding and agreement. All questions were answered. Thank you for involving us in the care of your patient. Please call with any questions. History of Present Illness History of present illness: Ms. Mcgovern is a 81 year old female All Systems Review: The remainder of the systems were reviewed and are negative Physical Examination Vital Signs, Last 4 Hours Temp Pulse Resp BP Pulse Ox 06/02/17 13:03 12 97 06/02/17 12:00 97.6 F 62 12 117/61 97 06/02/17 11:30 12 110/60 96 06/02/17 11:00 60 12 110/60 97 06/02/17 10:00 63 12 118/59 99 Results 06/02/17 04:55 06/02/17 04:55 Lab Results 06/02/17 06/02/17 06/02/17 04:55 04:55 04:55 WBC 8.5 Hgb 11.2 L Hct 34.4 L Plt Count 122 L APTT Sodium 137 Potassium 4.1 Chloride 108 H Carbon Dioxide 24 BUN 18 Creatinine 0.55 L Glucose 207 H Calcium 7.9 L Magnesium 2.0 Troponin I 1.76 H* 06/02/17 06/02/17 07:17 08:42 WBC Hgb Hct Plt Count APTT 47.0 H D Sodium Potassium Chloride Carbon Dioxide BUN Creatinine Glucose Calcium Magnesium Troponin I 1.59 H*
[2017-06-02] MEDS ORDERED: Dextrose Gel 15 GM/37.5 ML TUBE PO PRN ×2 (11:21)
[2017-06-02] MEDS ORDERED: D5% in Water 1,000 ML IVC PRN (11:21)
[2017-06-02] MEDS ORDERED: *HR* Dextrose 50 % in Water (Syg) 50 ML SYRINGE IVP PRN (11:21)
[2017-06-02] MEDS: Aspirin 81 MG TAB.CHEW GTUBE SCH (11:33)
[2017-06-02] MEDS: Pantoprazole 40 MG VIAL IVP SCH (11:33)
[2017-06-02] MEDS: *HR* Ticagrelor 90 MG TABLET GTUBE SCH ×2 (11:33→20:42)
[2017-06-02] MEDS: Insulin LISPRO 300 UNITS/3 ML VIAL SQ SCH ×3 (11:47→20:34)
[2017-06-02] MEDS ORDERED: 0.9 % Sodium Chloride 500 ML IVC ONE (11:56)
[2017-06-02] MEDS ORDERED: Perflutren Lipid Microsphere 1.3 ML in 0.9 % Sodium Chloride 8.7 ML IVP ONE (15:18)
--- NOTE | 2017-06-02 16:53 | Vascular/Endovasc Consult Note ---
Date of Encounter: 06/02/17 Time of Encounter: 15:45 Assessment and Plan (1) Acute cerebral infarction Current Visit: Yes Status: Acute (2) Left carotid artery occlusion Current Visit: Yes Status: Acute The patient has sustained a large left hemispheric cerebrovascular accident manifested with altered mental status and flaccid right sided paralysis. The patient is currently unresponsive, sedated and intubated. Her CTA was reviewed. She has minimal flow in the left cervical internal carotid artery. She has a distal left internal carotid artery occlusion. She also has a left middle cerebral artery occlusion. Carotid endarterectomy is contraindicated in this patient. A long discussion was held with the family regarding her snf prognosis. The pathophysiology of carotid stenosis, carotid occlusion and cerebrovasulr accidents was discussed with the family. At this time, given the acute nature and size of her infarct, it is not pssoble to determine snf prognosis. The family was informed that the next few days will give a better clinical picture. They were advised to direct questions regarding prognosis to neurology. They expressed understanding. At this time, continue with supportive care and antiplatelet therapy. (3) Hyperlipidemia Current Visit: No Status: Chronic Qualifiers: Hyperlipidemia type: mixed hyperlipidemia Qualified Code(s): E78.2 - Mixed hyperlipidemia (4) Altered mental status Current Visit: Yes Status: Acute Qualifiers: Altered mental status type: unspecified Qualified Code(s): R41.82 - Altered mental status, unspecified (5) CAD (coronary artery disease) Current Visit: Yes Status: Chronic Qualifiers: Coronary Disease-Associated Artery/Lesion type: [place] artery [place] vs. transplanted heart: [place] heart Associated angina: angina presence unspecified Qualified Code(s): I25.10 - Atherosclerotic heart disease of [place] coronary artery without angina pectoris - History of Present Illness Consult date: 06/02/17 Requesting physician: Coleman Wild Consult reason: left carotid artery occlusion Chief complaint: left hemispheric CVA History of present illness: Ms. Mcgovern is a 81 year old female who recently was admitted to [facility] with an acute myoardial infarction. She underwent a left heart cath with coronary stent placement. She was discharged from the hospital. After discharge she began to experience right upper extremity weakness and parasthesias. She then developed a speech deficit and lost consciousness. The patient was then transferred to [facility]. She was noted to have an acute left hemispheric cebrebrovascular accident. She underwent a CT angiogram of the neck and was found to have significant carotid disease. Vascular surgery was consulted for further evaluation. The patient is currently sedated and intubated in the intensive care unit. Past Med Surg Social Fam HX - Past Medical History Medical history: coronary artery disease, myocardial infarction Psychiatric history: no psych history - Past Surgical History Surgical History: angioplasty/stent - Social History Smoking Status: Never smoker Smokeless Tobacco Status: No Alcohol use: none Drug use: none - Family History Mother Living Status: Hx Family Cardiac Disorders: Yes Father History Unknown: Yes Living Status: Medications and Allergies Aspirin [Adult Aspirin Regimen] 81 mg PO DAILY #30 tablet. 06/01/17 [Rx] Carvedilol 3.125 mg PO BID #60 tab 06/01/17 [Rx] Ticagrelor [Brilinta] 90 mg PO BID #60 tablet 06/01/17 [Rx] 3 Allergy/AdvReac Type Severity Reaction Status Date / Time ezetimibe [From Zetia] AdvReac Cramping Verified 05/30/17 10:58 of the Muscles fenofibrate [From Tricor] AdvReac Cramping Verified 05/30/17 10:58 of the Muscles rosuvastatin [From Crestor] AdvReac Cramping Verified 05/30/17 10:58 of the Muscles simvastatin AdvReac Cramping Verified 05/30/17 10:58 of the Muscles ROS unobtainable: due to endotracheal tube, due to mental status Exam Vital Signs, Last 4 Hours Temp Pulse Resp BP Pulse Ox 06/02/17 16:00 98.8 F 67 15 118/62 100 06/02/17 15:00 65 14 107/60 99 06/02/17 14:51 14 98 06/02/17 14:00 65 14 107/54 98 06/02/17 13:03 12 97 06/02/17 13:00 63 12 116/61 99 General: Present: Other (sedated and intubated) HEENT: Present: Normocephaly Neck: Absent: JVD, Lymphadenopathy, Left Carotid bruit, Right Carotid bruit Cardiac: Present: Reg Rate and Rhythm, Normal S1 and S2 Lungs: Present: Normal Breath Sounds, No Wheeze, Rales, Rhonchi Neuro: Present: Other (sedate and intubated, minimal spontaneous movement on the left side) Abdomen: Present: Soft. Absent: Hepatosplenomegaly, [place] Vascular: Present: Normal capillary refill, Pulse, normal. Absent: Cyanosis, Edema Skin: Present: No rashes noted on visualized skin Consult Discharge Plan - Plan Referrals: Kateryna Aldridge CNP [Primary Care Provider] -
[2017-06-02 17:31] LABS: Amphetamine Screen,Urine Negative ng/mL (Cutoff=1000); Barbiturate Screen,Urine Negative ng/mL (Cutoff=200); Benzodiazepines Screen,Urine Negative ng/mL (Cutoff=200); Cannabinoid Screen,Urine Negative ng/mL (Cutoff = 50); Cocaine Screen,Urine Negative ng/mL (Cutoff= 300); Opiate Screen,Urine Negative ng/mL (Cutoff=300); Phencyclidine Screen,Urine Negative ng/mL (Cutoff=25)
[2017-06-02] MEDS ORDERED: 0.9 % Sodium Chloride 1,000 ML IVC ONE (21:09)
[2017-06-02] MEDS: 0.9 % Sodium Chloride w KCl 20 MEQ/1,000 ML MLS IVC SCH (21:25)
[2017-06-03] MEDS: Lacri-Lube 3.5 GM TUBE BOTH EYES SCH ×6 (00:15→20:14)
[2017-06-03] MEDS: Insulin LISPRO 300 UNITS/3 ML VIAL SQ SCH ×6 (02:10→20:15)
[2017-06-03 04:13] LABS: VBG PH 7.45 pH Units (7.32-7.42)
[2017-06-03 04:36] LABS: Hematocrit 32.2 % (35.3-44.9); Hemoglobin 10.4 g/dL (11.5-15.4); Mean Corpuscular HGB Conc 32.3 g/dL (31.6-35.5); Mean Corpuscular Volume 99.1 fL (83.0-100.0); Mean Platelet Volume 12.2 fL (9.4-12.4); Platelet Count 124 K/mcL (140-400); Red Blood Count 3.25 M/mcL (3.82-4.97); Red Cell Distribution Width 13.1 % (11.5-14.5)
[2017-06-03 07:03] LABS: BUN/Creatinine Ratio 32 (6-26); Blood Urea Nitrogen 15 mg/dL (8-23); Calcium 7.8 mg/dL (8.6-10.3); Carbon Dioxide 24 mEq/L (23-29); Chloride 109 mEq/L (98-107); Glucose 205 mg/dL (70-105); Osmolality,Calculated 293 (280-300); Potassium 4.1 mEq/L (3.5-5.1); Sodium 138 mEq/L (136-145); eGFR For African Americans > 60 (> 60); eGFR For Non-African Americans > 60 (> 60)
--- NOTE | 2017-06-03 08:19 | Pulmonology Progress Note ---
<Viridiana Earl - Last Filed: 06/03/17 14:26> Date of Encounter: 06/03/17 Time of Encounter: 07:45 Assessment and Plan (1) Acute cerebral infarction Current Visit: Yes Status: Acute Large Left MCA infarct -Head CT 06/03/2017: large left MCA infarct involving left frontal and temporal lobes. Increase cytotoxic edema in the area of the infarct with new left to right midline shift measuring 2.5 mm increased sulcal effacement. No evidence of hemorrhagic transformation. -Brain MRI 06/02/2017: large acute left middle cerebral artery territory infarction affecting the left frontal and temporal lobes. No associate hemorrhage. Cytotoxic with sulcal effacement in mild left lateral ventricle effacement. -Head CT 06/01/2017: no acute intracranial abnormality. Right upper and lower extremity flaccid hemiparesis Poor prognosis has been discussed with the family. Breathing over vent, gag reflex intact, withdrawal from physical stimuli. plan: -neurology following, recommendations appreciated. -Continue asa, brilinta -neuro checks per stroke protocol -palliative consulted (2) Acute respiratory failure with hypoxia Current Visit: Yes Status: Acute Of unknown etiology. Reportedly intermittently apnic at home, en route by EMS, and on arrival to ED. Emergently intubated for intermittent apnic spells and GCS 7. CXR concerning for possible LLL atelectasis. CTA chest demonstrates no PE. Does show CAD. Continue ventilation of patient. Breathing over the vent, gag reflex intact. (3) Left carotid artery occlusion Current Visit: Yes Status: Acute Head and Neck CTA 06/02/2017: demonstrate left carotid dissection. Complete occlusion of left internal carotid artery and complete occlusion of the left middle cerebral artery. 50% stenosis at the right carotid bifurcation secondary to atherosclerotic disease. -Vascular surgeon does not believe that this is a dissection after he further reviewed the imaging studies plan vascular consulted, recommendations appreciated- carotid endarterectomy is contraindicated. Continue asa, brilinta (4) Elevated troponin Current Visit: Yes Status: Acute elevated troponin 1.67 (was 3.33) Likely related to recent STEMI. Trending down (5) CAD (coronary artery disease) Current Visit: Yes Status: Chronic S/p STEMI 05/30/17 with PCI with MYAH x3 to the LAD. There was an 80% stenosis in the mLAD. Cardiology to plan for staged PCI in 2-3 weeks. TTE 06/02/2017: LVEF 35%. Segmental left ventricular systolic dysfunction. plan continue asa, brilinta cardiology following Qualifiers: Coronary Disease-Associated Artery/Lesion type: [place] artery [place] vs. transplanted heart: platinum heart Associated angina: angina presence unspecified Qualified Code(s): I25.10 - Atherosclerotic heart disease of [place] coronary artery without angina pectoris (6) Altered mental status Current Visit: Yes Status: Acute Qualifiers: Altered mental status type: unspecified Qualified Code(s): R41.82 - Altered mental status, unspecified (7) DVT prophylaxis Current Visit: Yes Status: Acute heparin sq Subjective Principal diagnosis: stroke Interval history: -Head CT 06/01/2017: no acute intracranial abnormality. -Brain MRI 06/02/2017: large acute left middle cerebral artery territory infarction affecting the left frontal and temporal lobes. No associate hemorrhage. Cytotoxic with sulcal effacement in mild left lateral ventricle effacement. Head and Neck CTA 06/02/2017: demonstrate left carotid dissection. Complete occlusion of left internal carotid artery and complete occlusion of the left middle cerebral artery. 50% stenosis at the right carotid bifurcation secondary to atherosclerotic disease. Vascular surgeon does not believe that this is a dissection after he further reviewed the imaging studies -Head CT 06/03/2017: large left MCA infarct involving left frontal and temporal lobes. Increase cytotoxic edema in the area of the infarct with new left to right midline shift measuring 2.5 mm increased sulcal effacement. No evidence of hemorrhagic transformation. Right upper and lower extremity flaccid hemiparesis Poor prognosis has been discussed with the family. Breathing over vent, gag reflex intact, withdrawal from physical stimuli. Objective PUL Vital signs: Last Vital Signs Temp 98.6 F 06/03/17 04:18 Pulse 68 06/03/17 06:00 Resp 14 06/03/17 07:45 BP 100/58 06/03/17 06:00 Pulse Ox 98 06/03/17 07:45 General appearance: no acute distress Eyes: nonicteric ENT: oropharynx moist Neck: supple Effort: normal Cardiovascular: regular rate and rhythm Gastrointestinal: normoactive bowel sounds, soft Integumentary: normal Extremities: no cyanosis unable to assess due to mental status Ventilator Settings Ventilator Settings: Ventilator Settings, Last 8 Hours Ventilator Mode A/C Ventilator Mode A/C Ventilator Mode A/C Ventilator Mode A/C Ventilator Mode A/C Ventilator Mode A/C Ventilator Mode A/C Ventilator Mode A/C Ventilator Mode A/C Ventilator Mode A/C Ventilator Tidal Volume 400 Setting Ventilator Tidal Volume 400 Setting Ventilator Tidal Volume 400 Setting Ventilator Tidal Volume 400 Setting Ventilator Tidal Volume 400 Setting Ventilator Tidal Volume 400 Setting Ventilator Tidal Volume 400 Setting Ventilator Tidal Volume 400 Setting Ventilator Tidal Volume 400 Setting Ventilator Tidal Volume 400 Setting Ventilator Respiratory Rate 12 Setting Ventilator Respiratory Rate 12 Setting Ventilator Respiratory Rate 12 Setting Ventilator Respiratory Rate 12 Setting Ventilator Respiratory Rate 12 Setting Ventilator Respiratory Rate 12 Setting Ventilator Respiratory Rate 12 Setting Ventilator Respiratory Rate 12 Setting Ventilator Respiratory Rate 12 Setting Ventilator Respiratory Rate 12 Setting Actual Respiratory Rate 15 Actual Respiratory Rate 14 Actual Respiratory Rate 14 Actual Respiratory Rate 15 Actual Respiratory Rate 14 Actual Respiratory Rate 13 Actual Respiratory Rate 14 Actual Respiratory Rate 13 Actual Respiratory Rate 13 Actual Respiratory Rate 14 Positive End Expiratory 5 Pressure Positive End Expiratory 5 Pressure Positive End Expiratory 5 Pressure Positive End Expiratory 5 Pressure Positive End Expiratory 5 Pressure Positive End Expiratory 5 Pressure Positive End Expiratory 5 Pressure Positive End Expiratory 5 Pressure Positive End Expiratory 5 Pressure Positive End Expiratory 5 Pressure Peak Inspiratory Airway 30 Pressure Peak Inspiratory Airway 29 Pressure Peak Inspiratory Airway 26 Pressure Peak Inspiratory Airway 29 Pressure Peak Inspiratory Airway 28 Pressure Peak Inspiratory Airway 29 Pressure Peak Inspiratory Airway 28 Pressure Peak Inspiratory Airway 29 Pressure Peak Inspiratory Airway 29 Pressure Peak Inspiratory Airway 27 Pressure Results - Laboratory Findings CBC and BMP: 06/03/17 03:52 06/03/17 05:26 ABG ABG pH 7.41 pH Units (7.32-7.45) 06/02/17 05:04 ABG pCO2 43 mmHg (35-45) 06/02/17 05:04 ABG pO2 118 mmHg (85-104) H D 06/02/17 05:04 ABG O2 Saturation 99 % (95-98) H 06/02/17 05:04 PT/INR, D-dimer PT 15.0 Seconds (9.4-12.1) H 06/02/17 00:09 Abnormal lab findings: Abnormal lab results RBC 3.25 M/mcL (3.82-4.97) L 06/03/17 03:52 Hgb 10.4 g/dL (11.5-15.4) L 06/03/17 03:52 Hct 32.2 % (35.3-44.9) L 06/03/17 03:52 Plt Count 124 K/mcL (140-400) L 06/03/17 03:52 Immature Plt Fraction 9.5 % (1.1-6.1) H 06/01/17 23:30 PT 15.0 Seconds (9.4-12.1) H 06/02/17 00:09 APTT 86.5 Seconds (26.0-36.0) H D 06/02/17 14:21 ABG pO2 118 mmHg (85-104) H D 06/02/17 05:04 ABG Total CO2 28 mEq/L (20-26) H 06/02/17 05:04 ABG O2 Saturation 99 % (95-98) H 06/02/17 05:04 VBG pH 7.45 pH Units (7.32-7.42) H 06/03/17 04:10 Chloride 109 mEq/L (98-107) H 06/03/17 05:26 Creatinine 0.47 mg/dL (0.60-1.20) L 06/03/17 05:26 BUN/Creatinine Ratio 32 (6-26) H 06/03/17 05:26 Glucose 205 mg/dL (70-105) H 06/03/17 05:26 POC Glucose 152 (58-89) H 06/02/17 23:55 Calcium 7.8 mg/dL (8.6-10.3) L 06/03/17 05:26 Venous Ioniz Calcium 1.00 mmol/L (1.15-1.35) L 06/03/17 04:10 Phosphorus 2.2 mg/dL (2.7-4.5) L 06/02/17 04:55 AST 51 Units/L (13-39) H 06/01/17 23:30 Troponin I 1.67 ng/mL (< 0.04) H* 06/02/17 14:21 B-Natriuretic Peptide 424 pg/mL (Less than 100) H 06/02/17 00:10 Serum Total Protein 5.3 g/dL (6.4-8.9) L 06/01/17 23:30 Albumin 2.9 g/dL (3.5-5.7) L 06/01/17 23:30 Urine Clarity Cloudy (Clear) A 06/01/17 23:31 Urine Ketones 15 mg/dL (Negative) H 02/20/18 23:31 Urine Bilirubin Small (Negative) H 06/01/17 23:31 Urine Urobilinogen 2.0 mg/dL (Normal) H 06/01/17 23:31 - Clinical Findings Intake & Output: Intake & Output 06/02/17 06/03/17 06/03/17 23:59 07:59 15:59 Intake Total 1148 / 1148 186 / 186 Output Total 400 / 400 125 / 125 Balance 748 / 748 61 / 61 - VTE Reasons for not Prescribing Prophylaxis: Not indicated-Anticoagulated or INR therapeutic Documentation of Mechanical Device: Intermittent pneumatic compression device Consult Discharge Plan - Plan Referrals: Kateryna Aldridge, SIMBA [Primary Care Provider] - <Coleman Wild - Last Filed: 06/03/17 23:46> Date of Encounter: 06/03/17 Objective PUL Vital signs: Last Vital Signs Temp 100.3 F H 06/03/17 20:00 Pulse 72 06/03/17 22:00 Resp 17 06/03/17 22:00 BP 93/53 06/03/17 22:00 Pulse Ox 97 06/03/17 22:00 Ventilator Settings Ventilator Settings: Ventilator Settings, Last 8 Hours Ventilator Mode A/C Ventilator Mode A/C Ventilator Mode A/C Ventilator Mode A/C Ventilator Mode A/C Ventilator Mode A/C Ventilator Mode A/C Ventilator Mode A/C Ventilator Mode A/C Ventilator Mode A/C Ventilator Mode A/C Ventilator Tidal Volume 400 Setting Ventilator Tidal Volume 400 Setting Ventilator Tidal Volume 400 Setting Ventilator Tidal Volume 400 Setting Ventilator Tidal Volume 400 Setting Ventilator Tidal Volume 400 Setting Ventilator Tidal Volume 400 Setting Ventilator Tidal Volume 400 Setting Ventilator Tidal Volume 400 Setting Ventilator Tidal Volume 400 Setting Ventilator Tidal Volume 400 Setting Ventilator Respiratory Rate 12 Setting Ventilator Respiratory Rate 12 Setting Ventilator Respiratory Rate 12 Setting Ventilator Respiratory Rate 12 Setting Ventilator Respiratory Rate 12 Setting Ventilator Respiratory Rate 12 Setting Ventilator Respiratory Rate 12 Setting Ventilator Respiratory Rate 12 Setting Ventilator Respiratory Rate 12 Setting Ventilator Respiratory Rate 12 Setting Ventilator Respiratory Rate 12 Setting Actual Respiratory Rate 17 Actual Respiratory Rate 17 Actual Respiratory Rate 16 Actual Respiratory Rate 16 Actual Respiratory Rate 15 Actual Respiratory Rate 15 Actual Respiratory Rate 18 Actual Respiratory Rate 17 Actual Respiratory Rate 14 Actual Respiratory Rate 20 Positive End Expiratory 5 Pressure Positive End Expiratory 5 Pressure Positive End Expiratory 5 Pressure Positive End Expiratory 5 Pressure Positive End Expiratory 5 Pressure Positive End Expiratory 5 Pressure Positive End Expiratory 5 Pressure Positive End Expiratory 5 Pressure Positive End Expiratory 5 Pressure Positive End Expiratory 5 Pressure Positive End Expiratory 5 Pressure Peak Inspiratory Airway 35 Pressure Peak Inspiratory Airway 33 Pressure Peak Inspiratory Airway 29 Pressure Peak Inspiratory Airway 38 Pressure Peak Inspiratory Airway 34 Pressure Peak Inspiratory Airway 34 Pressure Peak Inspiratory Airway 32 Pressure Peak Inspiratory Airway 33 Pressure Peak Inspiratory Airway 32 Pressure Peak Inspiratory Airway 30 Pressure Results - Laboratory Findings CBC and BMP: 06/03/17 03:52 06/03/17 05:26 ABG ABG pH 7.41 pH Units (7.32-7.45) 06/02/17 05:04 ABG pCO2 43 mmHg (35-45) 06/02/17 05:04 ABG pO2 118 mmHg (85-104) H D 06/02/17 05:04 ABG O2 Saturation 99 % (95-98) H 06/02/17 05:04 PT/INR, D-dimer PT 15.0 Seconds (9.4-12.1) H 06/02/17 00:09 Abnormal lab findings: Abnormal lab results RBC 3.25 M/mcL (3.82-4.97) L 06/03/17 03:52 Hgb 10.4 g/dL (11.5-15.4) L 06/03/17 03:52 Hct 32.2 % (35.3-44.9) L 06/03/17 03:52 Plt Count 124 K/mcL (140-400) L 06/03/17 03:52 Immature Plt Fraction 9.5 % (1.1-6.1) H 06/01/17 23:30 PT 15.0 Seconds (9.4-12.1) H 06/02/17 00:09 APTT 86.5 Seconds (26.0-36.0) H D 06/02/17 14:21 ABG pO2 118 mmHg (85-104) H D 06/02/17 05:04 ABG Total CO2 28 mEq/L (20-26) H 06/02/17 05:04 ABG O2 Saturation 99 % (95-98) H 06/02/17 05:04 VBG pH 7.45 pH Units (7.32-7.42) H 06/03/17 04:10 Chloride 109 mEq/L (98-107) H 06/03/17 05:26 Creatinine 0.47 mg/dL (0.60-1.20) L 06/03/17 05:26 BUN/Creatinine Ratio 32 (6-26) H 06/03/17 05:26 Glucose 205 mg/dL (70-105) H 06/03/17 05:26 POC Glucose 152 (58-89) H 06/02/17 23:55 Calcium 7.8 mg/dL (8.6-10.3) L 06/03/17 05:26 Venous Ioniz Calcium 1.00 mmol/L (1.15-1.35) L 06/03/17 04:10 Phosphorus 2.2 mg/dL (2.7-4.5) L 06/02/17 04:55 AST 51 Units/L (13-39) H 06/01/17 23:30 Troponin I 1.67 ng/mL (< 0.04) H* 06/02/17 14:21 B-Natriuretic Peptide 424 pg/mL (Less than 100) H 06/02/17 00:10 Serum Total Protein 5.3 g/dL (6.4-8.9) L 06/01/17 23:30 Albumin 2.9 g/dL (3.5-5.7) L 06/01/17 23:30 Urine Clarity Cloudy (Clear) A 06/01/17 23:31 Urine Ketones 15 mg/dL (Negative) H 06/01/17 23:31 Urine Bilirubin Small (Negative) H 06/01/17 23:31 Urine Urobilinogen 2.0 mg/dL (Normal) H 06/01/17 23:31 - Clinical Findings Intake & Output: Intake & Output 06/03/17 06/03/17 06/03/17 07:59 15:59 23:59 Intake Total 1186 / 1186 574 / 574 419 / 419 Output Total 125 / 125 300 / 300 300 / 300 Balance 1061 / 1061 274 / 274 119 / 119 - Attending Attestation - Attending Attestation I saw and evaluated this patient and my medical decision-making was reviewed with the Resident Physician. I agree with the documented findings, disposition and treatment plan as described except to the extent set forth below. We independently had [id number] contact with the patient Patient seen and examined at bedside Labs reviewed PADDER: Patient had a large left MCA stroke with Left MCA occlusion with distal ICA occlusion . No salvegable procedures can be done spoke with Neurointensivist . Óscar Toledo . Most likely this is a separate thrombotic event in the background severe atherosclerosis of Cerebral blood vessels .Patient will have signifcant morbidity if she recovers from this . Latest CT scan showed some midline shift . Pulm: Patient is intubated and ventilated acceptable oxygenation and ventilation .. Cards:HI has LAD stent on dual antiplatelet therapy now with NSTEMI FEN-GI: Started tube feeds Renal:Labs and output reviewed ID: No active issues Heme/Onc:Labs reviewed Endo: Glucose Monitored Integ/MSK: Skin Care per routine ICU Nursing Protocol to prevent ulcers. Lines: All lines examined without evidence of infection : Dispo: Critically ill CODE:Full Code Spoke with Family about poor prognosis . Appreciate Palliative care help.
[2017-06-03] MEDS: 0.9 % Sodium Chloride w KCl 20 MEQ/1,000 ML MLS IVC SCH (08:46)
[2017-06-03] MEDS: *HR* Ticagrelor 90 MG TABLET GTUBE SCH ×2 (09:11→20:13)
[2017-06-03] MEDS: Aspirin 81 MG TAB.CHEW GTUBE SCH (09:11)
[2017-06-03] MEDS: Chlorhexidine Rinse 15 ML MOUTHWASH MM SCH ×2 (09:11→20:13)
[2017-06-03] MEDS: Pantoprazole 40 MG VIAL IVP SCH (09:12)
--- NOTE | 2017-06-03 12:31 | Neurology Progress Note ---
Date of Encounter: 06/03/17 Time of Encounter: 12:28 Assessment and Plan (1) Acute cerebral infarction Current Visit: Yes Status: Acute Large left hemispheric cerebral infarcts involving the territory of the left middle cerebral artery. CT scan today shows a bit of mass effect however no evidence of subfalcine, uncal herniation. Patient is actually somewhat improved from a clinical perspective. I am concerned however that she is a bit hypotensive. I am also concerned that with an EF of 35% she might be a risk for clot formation. On the other hand anticoagulation in conjunction with double antiplatelet therapy has risks as well. At this juncture I would choose just to maintain her on the double antiplatelet therapy along with stroke protocol orders. Maximal swelling I would expect to occur over the next 24 hours or so. Continued neuro checks. I did discuss these issues with the family. Ultimately I believe that her prognosis for good recovery is poor. Critical care time spent with this patient was 45 minutes. Subjective Interval history: The chart was reviewed, the patient was seen and examined. The case was discussed with the ICU attending as well as with family and cardiology. The patient from a clinical perspective appears to be a bit more alert today. She is arousable to light tactile stimulation, she does spontaneously open her eyes she does have spontaneous movements of the head and of the left upper and left lower extremities. Echocardiogram does reveal ejection fraction of only 35%. The CT scan of the brain does reveal a bit of a midline shift. However her blood pressure is running in the 90s systolic. No evidence of hemorrhagic conversion on this morning's CAT scan. Objective - Constitutional Vitals: Temp Pulse Resp BP Pulse Ox 99.4 F 68 13 95/49 98 06/03/17 12:00 06/03/17 12:00 06/03/17 12:00 06/03/17 12:06/03/17 12:00 - Neurological Exam Additional comments: Neurologic examination is as follows; Cerebral functions-she is unconscious upon my entering the room, she arouses with light tactile stimulation. She does look around, however she is not really attentive, she does not make eye contact, she does not follow commands. She quickly drifts off into unconsciousness is not continuously stimulated. She does have a left gaze preference with a right hemianopsia. Cranial nerves-pupils are about 2-3 mm however symmetrically reactive. Corneal reflexes are brisk bilaterally, doll's eyes are intact. She is breathing above the ventilator today. Motor-she has dense flaccid hemiparesis of the right upper and right lower extremities. She moves the left upper and left lower extremities spontaneously. There are no involuntary movements identified. No posturing is present. DTRs-no clonus or Babinski are present. - VTE Reasons for not Prescribing Prophylaxis: Not indicated-Anticoagulated or INR therapeutic Documentation of Mechanical Device: Intermittent pneumatic compression device Results - Laboratory Findings CBC and BMP: 06/03/17 03:52 06/03/17 05:26 Abnormal lab findings: Abnormal lab results RBC 3.25 M/mcL (3.82-4.97) L 06/03/17 03:52 Hgb 10.4 g/dL (11.5-15.4) L 06/03/17 03:52 Hct 32.2 % (35.3-44.9) L 06/03/17 03:52 Plt Count 124 K/mcL (140-400) L 06/03/17 03:52 Immature Plt Fraction 9.5 % (1.1-6.1) H 06/01/17 23:30 PT 15.0 Seconds (9.4-12.1) H 06/02/17 00:09 APTT 86.5 Seconds (26.0-36.0) H D 06/02/17 14:21 ABG pO2 118 mmHg (85-104) H D 06/02/17 05:04 ABG Total CO2 28 mEq/L (20-26) H 06/02/17 05:04 ABG O2 Saturation 99 % (95-98) H 06/02/17 05:04 VBG pH 7.45 pH Units (7.32-7.42) H 06/03/17 04:10 Chloride 109 mEq/L (98-107) H 06/03/17 05:26 Creatinine 0.47 mg/dL (0.60-1.20) L 06/03/17 05:26 BUN/Creatinine Ratio 32 (6-26) H 06/03/17 05:26 Glucose 205 mg/dL (70-105) H 06/03/17 05:26 POC Glucose 152 (58-89) H 06/02/17 23:55 Calcium 7.8 mg/dL (8.6-10.3) L 06/03/17 05:26 Venous Ioniz Calcium 1.00 mmol/L (1.15-1.35) L 06/03/17 04:10 Phosphorus 2.2 mg/dL (2.7-4.5) L 06/02/17 04:55 AST 51 Units/L (13-39) H 06/01/17 23:30 Troponin I 1.67 ng/mL (< 0.04) H* 06/02/17 14:21 B-Natriuretic Peptide 424 pg/mL (Less than 100) H 06/02/17 00:10 Serum Total Protein 5.3 g/dL (6.4-8.9) L 06/01/17 23:30 Albumin 2.9 g/dL (3.5-5.7) L 06/01/17 23:30 Urine Clarity Cloudy (Clear) A 06/01/17 23:31 Urine Ketones 15 mg/dL (Negative) H 06/01/17 23:31 Urine Bilirubin Small (Negative) H 06/01/17 23:31 Urine Urobilinogen 2.0 mg/dL (Normal) H 06/01/17 23:31 Consult Discharge Plan - Plan Referrals: Kateryna Aldridge, [facility] [Primary Care Provider] -
--- NOTE | 2017-06-03 15:02 | Cardiology Progress Note ---
Date of Encounter: 06/03/17 Time of Encounter: 12:00 Assessment and Plan (1) Acute cerebral infarction Current Visit: Yes Status: Acute Cerebral MRI and head and neck MRA results noted. It is noted that there is no hemorrhage. With acute CVA there is possibility of hemorrhagic conversion. Patient is requiring DAPT with asa and brilinta uninterrupted for a minimum of one year for multiple PCI to the LAD. Interruption of DAPT therapy could be catastrophic for the patient. We appreciate neurology recommendation. Continuing asa and brilinta for now. TTE completed noted that there was swirling of contrast in the LV apex but no definite thrombus. Repeat CT completed today. Results noted. Palliative care and neurology following. (2) CAD (coronary artery disease) Current Visit: Yes Status: Chronic S/p STEMI 05/30/17 with PCI with MYAH x3 to the LAD. There was an 80% stenosis in the mRCA with plan for staged PCI in 2-3 weeks. EF 40% on LHC. TTE- shows 03/31/18 LVEF 45-50%. Low normal to mildly reduced LV systolic dysfunction with regional variations. Normal right ventricular structure and function. Mild mitral regurgitation. Moderate tricuspid regurgitation. Mild pulmonary hypertension.There is a small pericardial effusion present near the inferolateral wall. There is no echocardiographic evidence of tamponade. TTE this admission shows reduced EF at 35%. EKG this admission shows no concerning ST changes concerning for stent thrombosis. Troponin noted to be trending down, likely from recent [place]. I reviewed finding with family at bedside. She is currently not a candidate for any further ischemic evaluation to further investigate changes in the setting of acute CVA. Will continue medical management. On asa, brilinta. No beta-benson to avoid decrease in blood pressure for CVA management. Not on statin due to allergy. Qualifiers: Qualified Code(s): I25.10 - Atherosclerotic heart disease of [place] coronary artery without angina pectoris (3) Elevated troponin Current Visit: Yes Status: Acute Troponin elevation 3.33, 1.76, 1.59, 1.67 likely trending down from recent STEMI on 05/30/17 . No troponin trend during recent stay due to emergent LHC and PCI. Continue asa and brilinta. Restart carvedilol when able. WIll not lower b/p significantly in the setting of possible acute CVA. Discussion w patient/family: The assessment and plan as outlined above was discussed with the patient and/or family members who expressed understanding and agreement. All questions were answered. Thank you for involving us in the care of your patient. Please call with any questions. 4. Systolic CHF. TTE this admit shows EF 35%. Caution with IV fluid. Currently appears euvolemic. Monitor I&O and daily weights. Start carvedilol/aceI in the future when ok from neurology standpoint. Subjective Principal diagnosis: stroke Interval history: Patient remains sedated and intubated. Family at bedside during my exam. Daughter stated that she seemed to be responding to her. Objective Vital Signs, Last 4 Hours Temp Pulse Resp BP Pulse Ox 06/03/17 14:00 70 17 100 06/03/17 13:00 70 15 93/51 94 06/03/17 12:00 99.4 F 68 66 95/49 98 06/03/17 11:38 16 93/45 98 06/03/17 11:20 69 14 91/48 97 HEENT: Atraumatic, Normocephaly, Mucus Membranes Moist Cardiac: Reg Rate and Rhythm, Normal S1 and S2, No Murmur Lungs: Other (intubated on ventilator) Neuro: Other (sedated unable to assess. ) Abdomen: Soft, Non-Tender Skin: No rashes noted on visualized skin Musculoskeletal: No Chest Wall Tenderness Extremities: No Clubbing, No Cyanosis, No Edema, Normal Pulses Results 06/03/17 03:52 06/03/17 05:26 Lab Results 06/03/17 06/03/17 03:52 05:26 WBC 8.6 Hgb 10.4 L Hct 32.2 L Plt Count 124 L Sodium 138 Potassium 4.1 Chloride 109 H Carbon Dioxide 24 BUN 15 Creatinine 0.47 L Glucose 205 H Calcium 7.8 L - Imaging and Cardiology Echo: report reviewed - EKG Interpretation EKG results cardiology: personally reviewed - VTE Reasons for not Prescribing Prophylaxis: Not indicated-Anticoagulated or INR therapeutic Documentation of Mechanical Device: Intermittent pneumatic compression device Consult Discharge Plan - Plan Referrals: Kateryna Aldridge CNP [Primary Care Provider] -
--- NOTE | 2017-06-03 15:26 | Electrocardiograph Report ---
[address] [place], [place] [address] Test Date: 2017-06-02 Pat Name: Sonam Mcgovern Department: 109 Room: 08 Gender: F [employer] Technician: : 1935 Requested By: Joe Alas Order Number: [id number] Reading MD: Ciara Luis Measurements Intervals [place] Rate: 64 P: 35 MS: 132 QRS: -22 QRSD: 114 T: 97 QT: 413 QTc: 423 Interpretive Statements SINUS RHYTHM LOW QRS VOLTAGE IN PRECORDIAL LEADS INCOMPLETE RIGHT BUNDLE BRANCH BLOCK POSSIBLE ANTERIOR MYOCARDIAL INFARCTION, OF INDETERMINATE AGE MODERATE T-WAVE ABNORMALITY, CONSIDER LATERAL ISCHEMIA Electronically Signed On 06-03-2017 15:24:28 EST by Ciara Luis
--- NOTE | 2017-06-03 15:58 | Palliative - Consult Note ---
Date of Encounter: 06/03/17 Time of Encounter: 15:50 - Assessment and Plan (1) Generalized pain Current Visit: Yes Status: Acute Assessment and plan: Currently on Fentanyl at 30 mcg - titrating per ICU protocol. (2) Counseling regarding advanced care planning and goals of care Current Visit: Yes Status: Acute Assessment and plan: Discussed with , Abisai at bedside. Son and daughter are present in the room. They have had visits recently from Dr. Soriano as well as Dr. Luis. quite emotional during conversation - up until [place], pt has been independent and active, states this has been overwhelming to him. Discussed code status , he is not ready yet to make a decision and desires to give her a few days and see how she is. Discussed some decisions that may need faced in the future, including -fdc vent support if she is unable to wean , re-intubation if extubated and fails, artificial nutrition/PEG if dysphagic. Discussed that depending on her clinical status, rehab may need discussed. Also discussed briefly that if she does not do well, and they would want to consider more comfort care, hospice would be appropriate if we were not doing any life sustaining measures. acknowledged and appreciated information. Will f/u in am. (3) ST elevation myocardial infarction (STEMI) Current Visit: No Status: Acute Qualifiers: Involved coronary artery: LAD coronary artery Qualified Code(s): I21.02 - ST elevation (STEMI) myocardial infarction involving left anterior descending coronary artery (4) Acute cerebral infarction Current Visit: Yes Status: Acute Palliative-CN HPI - Data of Consult Consult date: 06/03/17 Requesting Physician: Brittany Spring MD Primary Care Provider: Kateryna Aldridge CNP - Consult Narrative History of present illness: Ms. Mcgovern is a 81 year old female who presented from home via EMS to the emergency department for evaluation of chest pain and confusion. Patient had been discharged from the ICU earlier that day after she was admitted with STEMI and had LHC with stent to proximal and mid LAD. According to at bedside , she began c/o chest/arm pain, and later was unable ambulate - assisted her back to chair. She was unable to speak and was not responding. She was altered with some periods of apnea, and was intubated. Imaging since admission has demonstrated Acute large left MCA infarction affecting the fontal and temporal lobes. Repeat scan today demonstrated new finding of increased cytotoxic edema and 2.5mm midline shift. Dr. Denny Soriano, Neurology and cardiology following closely. EF at cath 40%, repeat echo this admission at 30% . She currently remains on the ventilator. Despite CT results, her neuro exam has improved from yesterday according to chart review. Upon my visit, she opens eyes, and squeezes with left hand, although not on command. She did raise up left arm and attempted to grab ET tube while being turned. Appears restless when disturbed, resting quietly when left alone. and 2 children are at the bedside. P CC: Brittany Spring MD Past Med Surg Social Fam HX - Past Medical History Medical history: coronary artery disease, myocardial infarction Psychiatric history: no psych history - Past Surgical History Surgical History: angioplasty/stent - Social History Smoking Status: Never smoker Smokeless Tobacco Status: No Alcohol use: none Drug use: none - Family History Mother Living Status: Hx Family Cardiac Disorders: Yes Father History Unknown: Yes Living Status: Medications and Allergies Aspirin [Adult Aspirin Regimen] 81 mg PO DAILY #30 tablet. 06/01/17 [Rx] Carvedilol 3.125 mg PO BID #60 tab 06/01/17 [Rx] Ticagrelor [Brilinta] 90 mg PO BID #60 tablet 06/01/17 [Rx] 3 Allergy/AdvReac Type Severity Reaction Status Date / Time ezetimibe [From Zetia] AdvReac Cramping Verified 05/30/17 10:58 of the Muscles fenofibrate [From Tricor] AdvReac Cramping Verified 05/30/17 10:58 of the Muscles rosuvastatin [From Crestor] AdvReac Cramping Verified 05/30/17 10:58 of the Muscles simvastatin AdvReac Cramping Verified 05/30/17 10:58 of the Muscles ROS unobtainable: due to endotracheal tube, due to mental status Palliative Care-Exam - Constitutional Vitals: Temp Pulse Resp BP Pulse Ox 99.4 F 70 12 95/57 99 06/03/17 12:00 06/03/17 15:00 06/03/17 15:05 06/03/17 15:05 06/03/17 15:05 General appearance: Present: no acute distress - Head Head Exam: Present: normal inspection, normocephalic - Respiratory Respiratory exam: Present: CTAB - Cardiovascular Cardiovascular exam: Present: +S1, +S2 - GI/Abdominal Exam GI/Abdominal exam: Present: normal bowel sounds, soft - Extremities Exam Extremities exam: Present: normal capillary refill, normal inspection - Neurological Exam Additional comments: Patient is alert - will open eyes. Does not follow commands, but does squeeze left hand, and did try to grab ET tube with that hand during my visit while she was being turned. Rt sided flaccidity - Skin Skin exam: Present: dry, pallor, warm Internal Medicine - CN: Reslt - Labs CBC & Chem 7: 06/03/17 03:52 06/03/17 05:26 Labs: Short CBC 06/03/17 Range/Units 03:52 WBC 8.6 (4.3-11.1) K/mcL Hgb 10.4 L (11.5-15.4) g/dL Hct 32.2 L (35.3-44.9) % Plt Count 124 L (140-400) K/mcL BMP 06/03/17 05:26 Sodium 138 Potassium 4.1 Chloride 109 H Carbon Dioxide 24 BUN 15 Creatinine 0.47 L Glucose 205 H Calcium 7.8 L - ABG Interpretation ABG results: ABG ABG pH 7.41 pH Units (7.32-7.45) 06/02/17 05:04 ABG pCO2 43 mmHg (35-45) 06/02/17 05:04 ABG pO2 118 mmHg (85-104) H D 06/02/17 05:04 ABG O2 Saturation 99 % (95-98) H 06/02/17 05:04 PT/INR, D-dimer PT 15.0 Seconds (9.4-12.1) H 06/02/17 00:09 - Impressions Impressions Echocardiogram Limited Views 06/02/17 05:49 Impressions: LVEF 35%. Normal LV chamber size. Segmental left ventricular systolic dysfunction. Swirling of contrast noted in the LV apex, but no definite thrombus visualized. This was a limited study. Left Ventricular Wall Motion: Rest Echo Findings The apical inferior, apical septal, mid inferior septal and mid anterior septal booker were hypokinetic. The apex, apical anterior and apical lateral booker were akinetic. All other wall segments showed normal motion. Findings: Study Quality * Technically adequate exam. ECG Findings * Normal sinus rhythm. Left Ventricle * LVEF 35%. * Normal LV chamber size. * Segmental left ventricular systolic dysfunction. * Swirling of contrast noted in the LV apex, but no definite thrombus visualized. Right Ventricle * Normal right ventricular structure and function. Aorta * Ascending aorta not well visualized. IVC * The IVC is not dilated. Brain MRI 06/02/17 08:35 IMPRESSION: 1. Large acute left middle cerebral artery territory infarction affecting the left frontal and temporal lobes. No associated hemorrhage. Cytotoxic edema with sulcal effacement and mild left lateral ventricle effacement. 2. Loss of flow void in the left internal carotid artery and M1 segment of the middle cerebral artery consistent with occlusion. The findings were sent to the Radiology Results Communication Center at 11:04 am on 06/02/2017to be communicated to a licensed caregiver. D/ / 06/02/2017 11:07:38 Erick Palumbo MD / [facility] Interpreting Provider: Erick Palumbo MD Head CTA 06/02/17 10:45 IMPRESSION: 1. 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 There was large left MCA infarct on comparison MRI examination performed at the same time. 2. Approximately 50% stenosis at the right carotid bifurcation secondary to atherosclerotic disease. 3. Congenitally small right vertebral artery, with a dominant left vertebral artery. 4. Small to moderate bilateral pleural effusions. 5. Approximately 8 mm pulmonary nodule within right upper lobe. Follow-up chest CT is recommended as clinically warranted as detailed below. Findings were discussed with Dr. Wild at 12:31pm on 06/02/2017. RECOMMENDATIONS: Fleischner Society guidelines for follow-up and management of incidentally detected pulmonary nodules: Single Solid Nodule: Nodule size less than 6 mm In a low-risk patient, no routine follow-up. In a high-risk patient, optional CT at 12 months. Nodule size equals 6-8 mm In a low-risk patient, CT at 6-12 months, then consider CT at 18-24 months. In a high-risk patient, CT at 6-12 months, then CT at 18-24 months. Nodule size greater than 8 mm In a low-risk patient, consider CT, PET/CT, or tissue sampling at 3 months. In a high-risk patient, consider CT, PET/CT, or tissue sampling at 3 months. Multiple Solid Nodules: Nodule size less than 6 mm In a low-risk patient, no routine follow-up. In a high-risk patient, optional CT at 12 months. Nodule size equals 6-8 mm In a low-risk patient, CT at 3-6 months, then consider CT at 18-24 months. In a high-risk patient, CT at 3-6 months, then CT at 18-24 months. Nodule size greater than 8 mm In a low-risk patient, CT at 3-6 months, then consider CT at 18-24 months. In a high-risk patient, CT at 3-6 months, then CT at 18-24 months. - Low risk patients include individuals with minimal or absent history of smoking and other known risk factors. - High risk patients include individuals with a history or smoking or known risk factors. Radiology 2017 http://pubs.rsna.org/doi/full/10.1148/radiol.3621318656 D/ / 06/02/2017 12:47:22 Juventino Chambers MD / [facility] Interpreting Provider: Juventino Chambers MD Neck CTA 06/02/17 10:45 IMPRESSION: 1. 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 There was large left MCA infarct on comparison MRI examination performed at the same time. 2. Approximately 50% stenosis at the right carotid bifurcation secondary to atherosclerotic disease. 3. Congenitally small right vertebral artery, with a dominant left vertebral artery. 4. Small to moderate bilateral pleural effusions. 5. Approximately 8 mm pulmonary nodule within right upper lobe. Follow-up chest CT is recommended as clinically warranted as detailed below. Findings were discussed with Dr. Wild at 12:31pm on 06/02/2017. RECOMMENDATIONS: Fleischner Society guidelines for follow-up and management of incidentally detected pulmonary nodules: Single Solid Nodule: Nodule size less than 6 mm In a low-risk patient, no routine follow-up. In a high-risk patient, optional CT at 12 months. Nodule size equals 6-8 mm In a low-risk patient, CT at 6-12 months, then consider CT at 18-24 months. In a high-risk patient, CT at 6-12 months, then CT at 18-24 months. Nodule size greater than 8 mm In a low-risk patient, consider CT, PET/CT, or tissue sampling at 3 months. In a high-risk patient, consider CT, PET/CT, or tissue sampling at 3 months. Multiple Solid Nodules: Nodule size less than 6 mm In a low-risk patient, no routine follow-up. In a high-risk patient, optional CT at 12 months. Nodule size equals 6-8 mm In a low-risk patient, CT at 3-6 months, then consider CT at 18-24 months. In a high-risk patient, CT at 3-6 months, then CT at 18-24 months. Nodule size greater than 8 mm In a low-risk patient, CT at 3-6 months, then consider CT at 18-24 months. In a high-risk patient, CT at 3-6 months, then CT at 18-24 months. - Low risk patients include individuals with minimal or absent history of smoking and other known risk factors. - High risk patients include individuals with a history or smoking or known risk factors. Radiology 2017 http://pubs.rsna.org/doi/full/10.1148/radiol.6180915838 D/ / 06/02/2017 12:47:22 Juventino Chambers MD / [facility] Interpreting Provider: Juventino Chambers MD Head CT 06/03/17 08:15 IMPRESSION: Findings consistent with a large left MCA territory infarct involving the left frontal and temporal lobes as seen on recent prior MRI of 06/02/2017. Since recent prior examination there is increased cytotoxic edema in the area of the infarct with new [id number] midline shift measuring 2.5 mm and increased sulcal effacement. No evidence of hemorrhagic transformation. The findings were sent to the Radiology Results Communication Center at 9:21 am on 06/03/2017to be communicated to a licensed caregiver. D/ / 06/03/2017 09:32:41 Chano Lunsford MD / [facility] Interpreting Provider: Chano Lunsford MD Consult Discharge Plan - Plan Referrals: Kateryna Aldridge, [employer] [Primary Care Provider] - Palliative Quality Palliative Quality: Screen for Code Status: Yes, Screen for Goals of Care: Yes, Screen for Pain: Yes, If Pain Regimen Started, Initiate Bowel Regimen: NA, Screen for Nausea/Vomitting: Yes Code Status: 06/02/17 01:40 Resuscitation Status: Active [RES] Routine Comment: Resuscitation Status: Full Code
--- NOTE | 2017-06-03 16:01 | Electrocardiograph Report ---
[address] [place] [address] Test Date: 2017-06-01 Pat Name: Sonam Mcgovern Department: 103 Room: 08 Gender: F Chief Financial Officer: EKP : 1935 Requested By: Zay Parra Order Number: [id number] Reading MD: Ciara Luis Measurements Intervals [place] Rate: 77 P: 62 WA: 135 QRS: -46 QRSD: 121 T: 62 QT: 365 QTc: 397 Interpretive Statements SINUS RHYTHM RIGHT BUNDLE BRANCH BLOCK LEFT ANTERIOR FASCICULAR BLOCK [QRS AXIS <= -45, QR IN I, RS IN II] POSSIBLE ANTERIOR MYOCARDIAL INFARCTION OF INDETERMINATE AGE MODERATE T-WAVE ABNORMALITY, CONSIDER LATERAL ISCHEMIA Electronically Signed On 06-03-2017 16:00:26 EST by Ciara Luis
[2017-06-03] MEDS: *HR* Heparin 5,000 UNIT/ML VIAL SQ SCH (17:15)
[2017-06-03] MEDS: FentaNYL (PF) 1,000 MCG in 0.9 % Sodium Chloride 80 ML IVC SCH (23:41)
[2017-06-04] MEDS: Insulin LISPRO 300 UNITS/3 ML VIAL SQ SCH ×6 (00:03→20:12)
[2017-06-04] MEDS: Lacri-Lube 3.5 GM TUBE BOTH EYES SCH ×6 (00:03→20:12)
[2017-06-04 03:18] LABS: Hematocrit 31.5 % (35.3-44.9); Hemoglobin 10.4 g/dL (11.5-15.4); Mean Corpuscular Hemoglobin 32.2 pg (28.0-33.3); Mean Corpuscular Volume 97.5 fL (83.0-100.0); Mean Platelet Volume 11.9 fL (9.4-12.4); Platelet Count 135 K/mcL (140-400); Red Blood Count 3.23 M/mcL (3.82-4.97)
[2017-06-04 03:31] LABS: BUN/Creatinine Ratio 31 (6-26); Blood Urea Nitrogen 16 mg/dL (8-23); Calcium 7.7 mg/dL (8.6-10.3); Carbon Dioxide 24 mEq/L (23-29); Chloride 108 mEq/L (98-107); Glucose 172 mg/dL (70-105); Osmolality,Calculated 291 (280-300); Potassium 3.8 mEq/L (3.5-5.1); Sodium 138 mEq/L (136-145); eGFR For African Americans > 60 (> 60); eGFR For Non-African Americans > 60 (> 60)
--- NOTE | 2017-06-04 04:05 | Pulmonology Progress Note ---
<Sven Lyles - Last Filed: 06/04/17 07:08> Date of Encounter: 06/04/17 Time of Encounter: 07:08 Assessment and Plan (1) Acute cerebral infarction Current Visit: Yes Status: Acute Large left MCA ischemic infarct CT head wo con 06/03: Increased cytotoxic edema in area of infarct with new 2.5mm left to right midline shift and increased sulcal effacement. No hemorrhage. CTA hd/nk 06/02: Occlusion of left ICA and left MCA. Large left MCA infarct. 50% stenosis at right carotid bifurcation 2/2 atherosclerotic disease. MRI brain 06/02: Large MCA infarct with cytotoxic edema with sulcal effacement and mild left lat ventrical effacement. Loss of flow void in left ICA and M1 segment if MCA consistent with occlusion. No midline shift. CT head wo con 06/01: no acute abnormality. Right upper and lower extremity flaccid paralysis. Withdraws from painful stimuli. Gag reflex intact. Poor prognosis has been discussed with family at bedside. Neurology following. No subfalcine or uncal herniation at this time. Anticipate swelling to peak over today. Palliative following Continue aspirin and brilanta. Neuro checks per stroke protocol (2) Left carotid artery occlusion Current Visit: Yes Status: Acute Head and Neck CTA 06/02/2017: demonstrate left carotid dissection. Complete occlusion of left internal carotid artery and complete occlusion of the left middle cerebral artery. 50% stenosis at the right carotid bifurcation secondary to atherosclerotic disease. -Vascular surgeon does not believe that this is a dissection after he further reviewed the imaging studies Vascular surgery consulted. carotid endarterectomy is contraindicated Plan as above. (3) Acute respiratory failure with hypoxia Current Visit: Yes Status: Acute Of unknown etiology. Intermittently apnic at home, en route by EMS, and in ED. CXR, CTA chest show LLL atelectasis. Intubated secondary to GCS 7 and apnic spells. Sedated: Propofol Analgesia: fentanyl Vancomycin day 2 Zosyn day 2 (4) Elevated troponin Current Visit: Yes Status: Acute Potentially secondary to recent STEMI with LHC and MYAH x2. Improving. Consult to cardiology continue aspirin and brilenta. Restart carvedilol when able as tolerated by BP with respect to CVA/ neurologic management. (5) CAD (coronary artery disease) Current Visit: Yes Status: Chronic S/p STEMI 05/30/17 with PCI with MYAH x3 to the LAD. There was an 80% stenosis in the mRCA with plan for staged PCI in 2-3 weeks. EF 40% on LHC. TTE 06/02/17: LVEF 35%. Segmental LV systolic dysfunction. Swirling in LV apex with no definite thrombus visualized. TTE 03/31/18: LVEF 45-50%. Low normal to mildly reduced LV systolic dysfunction with regional variations. EKG this admission shows no concerning ST changes Troponin noted to be trending down, likely from recent [place]. Cardiology following. Plan as above. Qualifiers: Coronary Disease-Associated Artery/Lesion type: [place] artery [place] vs. transplanted heart: [place] heart Associated angina: angina presence unspecified Qualified Code(s): I25.10 - Atherosclerotic heart disease of [place] coronary artery without angina pectoris Subjective Principal diagnosis: stroke Interval history: Hospital day 3 Patient was asleep but easily arousable with spontaneously eye opening and spontaneous purposeful movement of head, LUE, and LLE. Though clinically improved, outlook remains poor. EF 35%. CT shows 2.5mm L to R midline shift with no hemorrhage. Palliative, neurology, and cardiology on board. Objective PUL Vital signs: Last Vital Signs Temp 100.7 F H 06/03/17 23:50 Pulse 70 06/04/17 03:00 Resp 24 06/04/17 03:48 BP 98/54 06/04/17 03:48 Pulse Ox 96 06/04/17 03:48 General appearance: no acute distress Eyes: nonicteric ENT: oropharynx moist Neck: supple Effort: other (intubated) Auscultation: bilateral: clear Cardiovascular: regular rate and rhythm Gastrointestinal: normoactive bowel sounds, soft, non-tender, non-distended Integumentary: normal Extremities: no cyanosis, no edema, no clubbing, pink and warm, pulses normal, no ischemia or petechiae Musculoskeletal: no deformities pupils equal and round, other (sedated. Movement of head and left upper and lower extremities. No movement of right upper or lower extremities.) Ventilator Settings Ventilator Settings: Ventilator Settings, Last 8 Hours Ventilator Mode A/C Ventilator Mode A/C Ventilator Mode A/C Ventilator Mode A/C Ventilator Mode A/C Ventilator Mode A/C Ventilator Mode A/C Ventilator Mode A/C Ventilator Mode A/C Ventilator Mode A/C Ventilator Mode A/C Ventilator Tidal Volume 400 Setting Ventilator Tidal Volume 400 Setting Ventilator Tidal Volume 400 Setting Ventilator Tidal Volume 400 Setting Ventilator Tidal Volume 400 Setting Ventilator Tidal Volume 400 Setting Ventilator Tidal Volume 400 Setting Ventilator Tidal Volume 400 Setting Ventilator Tidal Volume 400 Setting Ventilator Tidal Volume 400 Setting Ventilator Tidal Volume 400 Setting Ventilator Respiratory Rate 12 Setting Ventilator Respiratory Rate 12 Setting Ventilator Respiratory Rate 12 Setting Ventilator Respiratory Rate 12 Setting Ventilator Respiratory Rate 12 Setting Ventilator Respiratory Rate 12 Setting Ventilator Respiratory Rate 12 Setting Ventilator Respiratory Rate 12 Setting Ventilator Respiratory Rate 12 Setting Ventilator Respiratory Rate 12 Setting Ventilator Respiratory Rate 12 Setting Actual Respiratory Rate 17 Actual Respiratory Rate 18 Actual Respiratory Rate 22 Actual Respiratory Rate 16 Actual Respiratory Rate 15 Actual Respiratory Rate 20 Actual Respiratory Rate 17 Actual Respiratory Rate 15 Actual Respiratory Rate 17 Actual Respiratory Rate 17 Actual Respiratory Rate 17 Positive End Expiratory 5 Pressure Positive End Expiratory 5 Pressure Positive End Expiratory 5 Pressure Positive End Expiratory 5 Pressure Positive End Expiratory 5 Pressure Positive End Expiratory 5 Pressure Positive End Expiratory 5 Pressure Positive End Expiratory 5 Pressure Positive End Expiratory 5 Pressure Positive End Expiratory 5 Pressure Positive End Expiratory 5 Pressure Peak Inspiratory Airway 23 Pressure Peak Inspiratory Airway 24 Pressure Peak Inspiratory Airway 23 Pressure Peak Inspiratory Airway 45 Pressure Peak Inspiratory Airway 43 Pressure Peak Inspiratory Airway 41 Pressure Peak Inspiratory Airway 35 Pressure Peak Inspiratory Airway 35 Pressure Peak Inspiratory Airway 34 Pressure Peak Inspiratory Airway 35 Pressure Peak Inspiratory Airway 33 Pressure Results - Laboratory Findings CBC and BMP: 06/04/17 03:10 06/04/17 03:10 ABG ABG pH 7.41 pH Units (7.32-7.45) 06/02/17 05:04 ABG pCO2 43 mmHg (35-45) 06/02/17 05:04 ABG pO2 118 mmHg (85-104) H D 06/02/17 05:04 ABG O2 Saturation 99 % (95-98) H 06/02/17 05:04 PT/INR, D-dimer PT 15.0 Seconds (9.4-12.1) H 06/02/17 00:09 Abnormal lab findings: Abnormal lab results RBC 3.23 M/mcL (3.82-4.97) L 06/04/17 03:10 Hgb 10.4 g/dL (11.5-15.4) L 06/04/17 03:10 Hct 31.5 % (35.3-44.9) L 06/04/17 03:10 Plt Count 135 K/mcL (140-400) L 06/04/17 03:10 Immature Plt Fraction 9.5 % (1.1-6.1) H 06/01/17 23:30 PT 15.0 Seconds (9.4-12.1) H 06/02/17 00:09 APTT 86.5 Seconds (26.0-36.0) H D 06/02/17 14:21 ABG pO2 118 mmHg (85-104) H D 06/02/17 05:04 ABG Total CO2 28 mEq/L (20-26) H 06/02/17 05:04 ABG O2 Saturation 99 % (95-98) H 06/02/17 05:04 VBG pH 7.45 pH Units (7.32-7.42) H 06/03/17 04:10 Chloride 108 mEq/L (98-107) H 06/04/17 03:10 Creatinine 0.52 mg/dL (0.60-1.20) L 06/04/17 03:10 BUN/Creatinine Ratio 31 (6-26) H 06/04/17 03:10 Glucose 172 mg/dL (70-105) H 06/04/17 03:10 POC Glucose 179 (58-89) H 06/04/17 00:00 Calcium 7.7 mg/dL (8.6-10.3) L 06/04/17 03:10 Venous Ioniz Calcium 1.00 mmol/L (1.15-1.35) L 06/03/17 04:10 Phosphorus 2.2 mg/dL (2.7-4.5) L 06/02/17 04:55 AST 51 Units/L (13-39) H 06/01/17 23:30 Troponin I 1.67 ng/mL (< 0.04) H* 06/02/17 14:21 B-Natriuretic Peptide 424 pg/mL (Less than 100) H 06/02/17 00:10 Serum Total Protein 5.3 g/dL (6.4-8.9) L 06/01/17 23:30 Albumin 2.9 g/dL (3.5-5.7) L 06/01/17 23:30 Urine Clarity Cloudy (Clear) A 06/01/17 23:31 Urine Ketones 15 mg/dL (Negative) H 06/01/17 23:31 Urine Bilirubin Small (Negative) H 06/01/17 23:31 Urine Urobilinogen 2.0 mg/dL (Normal) H 06/01/17 23:31 - Clinical Findings Intake & Output: Intake & Output 06/03/17 06/03/17 06/04/17 15:59 23:59 07:59 Intake Total 574 / 574 678 / 678 350 / 350 Output Total 300 / 300 450 / 450 Balance 274 / 274 228 / 228 350 / 350 Weight 63 kg - VTE Reasons for not Prescribing Prophylaxis: Not indicated-Anticoagulated or INR therapeutic Documentation of Mechanical Device: Intermittent pneumatic compression device Consult Discharge Plan - Plan Referrals: Kateryna Aldridge CNP [Primary Care Provider] - <Coleman Wild - Last Filed: 06/04/17 23:42> Date of Encounter: 06/04/17 Objective PUL Vital signs: Last Vital Signs Temp 100.4 F H 06/04/17 20:00 Pulse 70 06/04/17 23:00 Resp 16 06/04/17 23:25 BP 104/63 06/04/17 23:25 Pulse Ox 97 06/04/17 23:25 Ventilator Settings Ventilator Settings: Ventilator Settings, Last 8 Hours Ventilator Mode A/C Ventilator Mode A/C Ventilator Mode A/C Ventilator Mode A/C Ventilator Mode A/C Ventilator Mode A/C Ventilator Mode A/C Ventilator Mode A/C Ventilator Mode A/C Ventilator Mode A/C Ventilator Mode A/C Ventilator Mode A/C Ventilator Tidal Volume 400 Setting Ventilator Tidal Volume 400 Setting Ventilator Tidal Volume 400 Setting Ventilator Tidal Volume 400 Setting Ventilator Tidal Volume 400 Setting Ventilator Tidal Volume 400 Setting Ventilator Tidal Volume 400 Setting Ventilator Tidal Volume 400 Setting Ventilator Tidal Volume 400 Setting Ventilator Tidal Volume 400 Setting Ventilator Tidal Volume 400 Setting Ventilator Tidal Volume 400 Setting Ventilator Respiratory Rate 12 Setting Ventilator Respiratory Rate 12 Setting Ventilator Respiratory Rate 12 Setting Ventilator Respiratory Rate 12 Setting Ventilator Respiratory Rate 12 Setting Ventilator Respiratory Rate 12 Setting Ventilator Respiratory Rate 12 Setting Ventilator Respiratory Rate 12 Setting Ventilator Respiratory Rate 12 Setting Ventilator Respiratory Rate 12 Setting Ventilator Respiratory Rate 12 Setting Ventilator Respiratory Rate 12 Setting Actual Respiratory Rate 22 Actual Respiratory Rate 13 Actual Respiratory Rate 19 Actual Respiratory Rate 13 Actual Respiratory Rate 18 Actual Respiratory Rate 16 Actual Respiratory Rate 14 Actual Respiratory Rate 15 Actual Respiratory Rate 17 Actual Respiratory Rate 18 Actual Respiratory Rate 20 Actual Respiratory Rate 24 Positive End Expiratory 5 Pressure Positive End Expiratory 5 Pressure Positive End Expiratory 5 Pressure Positive End Expiratory 5 Pressure Positive End Expiratory 5 Pressure Positive End Expiratory 5 Pressure Positive End Expiratory 5 Pressure Positive End Expiratory 5 Pressure Positive End Expiratory 5 Pressure Positive End Expiratory 5 Pressure Positive End Expiratory 5 Pressure Positive End Expiratory 5 Pressure Peak Inspiratory Airway 29 Pressure Peak Inspiratory Airway 31 Pressure Peak Inspiratory Airway 32 Pressure Peak Inspiratory Airway 29 Pressure Peak Inspiratory Airway 31 Pressure Peak Inspiratory Airway 30 Pressure Peak Inspiratory Airway 34 Pressure Peak Inspiratory Airway 30 Pressure Peak Inspiratory Airway 27 Pressure Results - Laboratory Findings CBC and BMP: 06/04/17 03:10 06/04/17 03:10 ABG ABG pH 7.41 pH Units (7.32-7.45) 06/02/17 05:04 ABG pCO2 43 mmHg (35-45) 06/02/17 05:04 ABG pO2 118 mmHg (85-104) H D 06/02/17 05:04 ABG O2 Saturation 99 % (95-98) H 06/02/17 05:04 PT/INR, D-dimer PT 15.0 Seconds (9.4-12.1) H 06/02/17 00:09 Abnormal lab findings: Abnormal lab results RBC 3.23 M/mcL (3.82-4.97) L 06/04/17 03:10 Hgb 10.4 g/dL (11.5-15.4) L 06/04/17 03:10 Hct 31.5 % (35.3-44.9) L 06/04/17 03:10 Plt Count 135 K/mcL (140-400) L 06/04/17 03:10 Immature Plt Fraction 9.5 % (1.1-6.1) H 06/01/17 23:30 PT 15.0 Seconds (9.4-12.1) H 06/02/17 00:09 APTT 86.5 Seconds (26.0-36.0) H D 06/02/17 14:21 ABG pO2 118 mmHg (85-104) H D 06/02/17 05:04 ABG Total CO2 28 mEq/L (20-26) H 06/02/17 05:04 ABG O2 Saturation 99 % (95-98) H 06/02/17 05:04 VBG pH 7.45 pH Units (7.32-7.42) H 06/03/17 04:10 Chloride 108 mEq/L (98-107) H 06/04/17 03:10 Creatinine 0.52 mg/dL (0.60-1.20) L 06/04/17 03:10 BUN/Creatinine Ratio 31 (6-26) H 06/04/17 03:10 Glucose 172 mg/dL (70-105) H 06/04/17 03:10 POC Glucose 201 (58-89) H 06/04/17 04:23 Calcium 7.7 mg/dL (8.6-10.3) L 06/04/17 03:10 Venous Ioniz Calcium 1.00 mmol/L (1.15-1.35) L 06/03/17 04:10 Phosphorus 2.2 mg/dL (2.7-4.5) L 06/02/17 04:55 AST 51 Units/L (13-39) H 06/01/17 23:30 Troponin I 1.67 ng/mL (< 0.04) H* 06/02/17 14:21 B-Natriuretic Peptide 424 pg/mL (Less than 100) H 06/02/17 00:10 Serum Total Protein 5.3 g/dL (6.4-8.9) L 06/01/17 23:30 Albumin 2.9 g/dL (3.5-5.7) L 06/01/17 23:30 Urine Clarity Cloudy (Clear) A 06/01/17 23:31 Urine Ketones 15 mg/dL (Negative) H 06/01/17 23:31 Urine Bilirubin Small (Negative) H 06/01/17 23:31 Urine Urobilinogen 2.0 mg/dL (Normal) H 06/01/17 23:31 Vancomycin Trough 7.0 mcg/mL (10-20) L 06/04/17 22:16 - Clinical Findings Intake & Output: Intake & Output 06/04/17 06/04/17 06/04/17 07:59 15:59 23:59 Intake Total 620 / 620 843 / 843 607 / 607 Output Total 150 / 150 350 / 350 150 / 150 Balance 470 / 470 493 / 493 457 / 457 Weight 63 kg - Attending Attestation - Attending Attestation I saw and evaluated this patient and my medical decision-making was reviewed with the Resident Physician. I agree with the documented findings, disposition and treatment plan as described except to the extent set forth below. We independently had [id number] contact with the patient Patient seen and examined at bedside Labs reviewed PEDIATRIC ASSISTANT: Patient had a large left MCA stroke with Left MCA occlusion with distal ICA occlusion . No salvegable procedures can be done spoke with Neurointensivist . Óscar Jannette [place] . Most likely this is a separate thrombotic event in the background severe atherosclerosis of Cerebral blood vessels .Patient will have signifcant morbidity if she recovers from this . Latest CT scan showed some midline shift .Patient if recovers will require significant help she will have a quite bit of difficulties . Patient tried squeeze my fingers on the left side no movement in the right side Pulm: Patient is intubated and ventilated acceptable oxygenation and ventilation .. Cards:KS has LAD stent on dual antiplatelet therapy now with NSTEMI FEN-GI: Started tube feeds Renal:Labs and output reviewed ID: No active issues Heme/Onc:Labs reviewed Endo: Glucose Monitored Integ/MSK: Skin Care per routine ICU Nursing Protocol to prevent ulcers. Lines: All lines examined without evidence of infection : Dispo: Critically ill CODE:Full Code Spoke with Family about poor prognosis . Appreciate Palliative care help.
[2017-06-04] MEDS: *HR* Heparin 5,000 UNIT/ML VIAL SQ SCH ×2 (06:16→16:59)
[2017-06-04] MEDS: Pantoprazole 40 MG VIAL IVP SCH (07:39)
[2017-06-04] MEDS: Chlorhexidine Rinse 15 ML MOUTHWASH MM SCH ×2 (07:39→20:12)
[2017-06-04] MEDS: Aspirin 81 MG TAB.CHEW GTUBE SCH (07:39)
[2017-06-04] MEDS: *HR* Ticagrelor 90 MG TABLET GTUBE SCH ×2 (07:39→20:12)
--- NOTE | 2017-06-04 12:30 | Palliative Progress Note ---
Date of Encounter: 06/04/17 Time of Encounter: 09:00 - Assessment and plan (1) Generalized pain Current Visit: Yes Status: Acute Assessment and plan: She continues on Fentanyl drip, currently at 40mcg. (2) Counseling regarding advanced care planning and goals of care Current Visit: Yes Status: Acute Assessment and plan: Spoke at length with , Abisai and daughter Gris. Abisai expressed some concerns that they are getting conflicting messages from different providers regarding patient's prognosis. His perceived conversation with Neurology and Vascular were positive that she was improving , and he states "then others come in and state we have to make decisions regarding life and things". Discussed with them that her recovery at this point is unknown, and will need more time to assess what her function may be. Discussed that CPAP trial only initiated for first time today, but will continue to do weaning trials to prepare for extubation, but that if she is unable to wean from vent, family needs time to discuss and decide if permanent life sustaining measures are desired and in alignment with patient wishes. Also discussed that if she is successfully extubated, but unable to swallow safely, family would also need to decide re: if pt would desire feeding tube for nutrition/medication administration. I spoke that while we hope for the best, we desire family to have information regarding this things early to allow them time to process information, discuss with family, and make an informed decision. and daughter verbalized understanding. Discussed code status - at this time, he wants her to remain full code until she has more time to recover. He understands that with her cardiac disease, low EF, recent CVA, the likelihood of her surviving to leave the hospital after a code would be very low. expressed concern to me that pt was discharged too soon after stent, and that "if he would have known he could have appealed discharge, he would have ". He stated that Medicare IM nurse in yesterday and informed regarding appeal process, and he stated he will do that this time. I discussed that she is still on ICU and receiving ventilator support, so there is no discussion of discharge anytime soon, no need to discuss appeal process now, that if he desired to do this when she was discharged, he could ask for older adult social work specialist to discuss with that dept. They also were concerned with possibility of skin breakdown with heels/coccyx - discussed with primary nurse Henry. Family is struggling with the 2 traumatic medical events within a week, and hoping for great improvement from her. does state that she has a living will and wouldn't want to "lay there and be a vegetable". Emotional support given. Will continue to follow closely. (3) ST elevation myocardial infarction (STEMI) Current Visit: No Status: Acute Assessment and plan: Cardiology following . Continue with ASA, Bril[place] Qualifiers: Involved coronary artery: LAD coronary artery Qualified Code(s): I21.02 - ST elevation (STEMI) myocardial infarction involving left anterior descending coronary artery (4) Acute cerebral infarction Current Visit: Yes Status: Acute Assessment and plan: Neurology following - Time Spent With Patient Total time spent is greater than 50% in coordination of care (as documented) at patient's floor/unit and/or counseling patient: Greater than 35 minutes - Subjective Interval history: Patient remains on ventilator. Currently on Fentanyl at 40mcg/hr. and daughter at bedside. He states "she is not moving as much as she was yesterday ". Appears in no distress. CPAP for 7 minutes this am, aborted r/t low tidal volumes. Continues to occasionally move left arm, does not follow commands. - Constitutional Vitals: Abnormal lab results RBC 3.23 M/mcL (3.82-4.97) L 06/04/17 03:10 Hgb 10.4 g/dL (11.5-15.4) L 06/04/17 03:10 Hct 31.5 % (35.3-44.9) L 06/04/17 03:10 Plt Count 135 K/mcL (140-400) L 06/04/17 03:10 Immature Plt Fraction 9.5 % (1.1-6.1) H 06/01/17 23:30 PT 15.0 Seconds (9.4-12.1) H 06/02/17 00:09 APTT 86.5 Seconds (26.0-36.0) H D 06/02/17 14:21 ABG pO2 118 mmHg (85-104) H D 06/02/17 05:04 ABG Total CO2 28 mEq/L (20-26) H 06/02/17 05:04 ABG O2 Saturation 99 % (95-98) H 06/02/17 05:04 VBG pH 7.45 pH Units (7.32-7.42) H 06/03/17 04:10 Chloride 108 mEq/L (98-107) H 06/04/17 03:10 Creatinine 0.52 mg/dL (0.60-1.20) L 06/04/17 03:10 BUN/Creatinine Ratio 31 (6-26) H 06/04/17 03:10 Glucose 172 mg/dL (70-105) H 06/04/17 03:10 POC Glucose 201 (58-89) H 06/04/17 04:23 Calcium 7.7 mg/dL (8.6-10.3) L 06/04/17 03:10 Venous Ioniz Calcium 1.00 mmol/L (1.15-1.35) L 06/03/17 04:10 Phosphorus 2.2 mg/dL (2.7-4.5) L 06/02/17 04:55 AST 51 Units/L (13-39) H 06/01/17 23:30 Troponin I 1.67 ng/mL (< 0.04) H* 06/02/17 14:21 B-Natriuretic Peptide 424 pg/mL (Less than 100) H 06/02/17 00:10 Serum Total Protein 5.3 g/dL (6.4-8.9) L 06/01/17 23:30 Albumin 2.9 g/dL (3.5-5.7) L 06/01/17 23:30 Urine Clarity Cloudy (Clear) A 06/01/17 23:31 Urine Ketones 15 mg/dL (Negative) H 06/01/17 23:31 Urine Bilirubin Small (Negative) H 06/01/17 23:31 Urine Urobilinogen 2.0 mg/dL (Normal) H 06/01/17 23:31 General appearance: Present: no acute distress - Respiratory Respiratory exam: Present: CTAB - Cardiovascular Cardiovascular exam: Present: +S1, +S2 - GI/Abdominal GI/Abdominal exam: Present: normal bowel sounds, soft - Extremities Exam Extremities exam: Present: normal capillary refill, normal inspection - Neurological Exam Additional comments: Appears to have rt sided hemiparesis. Moves left arm occasionally. Does not follow commands - Skin Skin exam: Present: dry, pallor, warm Palliative Quality Palliative Quality: Screen for Code Status: Yes, Screen for Goals of Care: Yes, Screen for Pain: Yes, If Pain Regimen Started, Initiate Bowel Regimen: NA, Screen for Nausea/Vomitting: Yes Code Status: 06/02/17 01:40 Resuscitation Status: Active [RES] Routine Comment: Resuscitation Status: Full Code - Labs CBC & Chem 7: 06/04/17 03:10 06/04/17 03:10 Labs: Laboratory Results - last 24 hr 06/03/17 06/03/17 06/03/17 05:06 08:08 11:50 WBC RBC Hgb Hct MCV MCH MCHC RDW Plt Count MPV Sodium Potassium Chloride Carbon Dioxide BUN Creatinine Est GFR ( Amer) Est GFR (Non-Af Amer) BUN/Creatinine Ratio Glucose POC Glucose 194 H 145 H 124 H Calculated Osmolality Calcium 06/03/17 06/03/17 06/04/17 16:38 20:15 00:00 WBC RBC Hgb Hct MCV MCH MCHC RDW Plt Count MPV Sodium Potassium Chloride Carbon Dioxide BUN Creatinine Est GFR ( Amer) Est GFR (Non-Af Amer) BUN/Creatinine Ratio Glucose POC Glucose 124 H 166 H 179 H Calculated Osmolality Calcium 06/04/17 06/04/17 06/04/17 03:10 03:10 04:21 WBC 7.6 RBC 3.23 L Hgb 10.4 L Hct 31.5 L MCV 97.5 MCH 32.2 MCHC 33.0 RDW 13.0 Plt Count 135 L MPV 11.9 Sodium 138 Potassium 3.8 Chloride 108 H Carbon Dioxide 24 BUN 16 Creatinine 0.52 L Est GFR ( Amer) > 60 Est GFR (Non-Af Amer) > 60 BUN/Creatinine Ratio 31 H Glucose 172 H POC Glucose 237 H Calculated Osmolality 291 Calcium 7.7 L 06/04/17 04:23 WBC RBC Hgb Hct MCV MCH MCHC RDW Plt Count MPV Sodium Potassium Chloride Carbon Dioxide BUN Creatinine Est GFR ( Amer) Est GFR (Non-Af Amer) BUN/Creatinine Ratio Glucose POC Glucose 201 H Calculated Osmolality Calcium - ABG Interpretation ABG results: ABG ABG pH 7.41 pH Units (7.32-7.45) 06/02/17 05:04 ABG pCO2 43 mmHg (35-45) 06/02/17 05:04 ABG pO2 118 mmHg (85-104) H D 06/02/17 05:04 ABG O2 Saturation 99 % (95-98) H 06/02/17 05:04 PT/INR, D-dimer PT 15.0 Seconds (9.4-12.1) H 06/02/17 00:09 Consult Discharge Plan - Plan Referrals: Kateryna Aldridge, [facility] [Primary Care Provider] -
--- NOTE | 2017-06-04 12:46 | Event Note ---
Date of Encounter: 06/04/17 Time of Encounter: 12:44 - Cardiology Event Note Cardiology will sign off. There are no further recommendation for testing from our standpoint. Recommend continuing DAPT uninterrupted for recent MYAH x3 to the LAD on 05/30/17. Telemetry reviewed today and shows NSR. AVg hr 76. No arrhythmias noted. Please call with questions.
--- NOTE | 2017-06-04 13:29 | Neurology Progress Note ---
<Nickolas Leiva - Last Filed: 06/04/17 16:11> Date of Encounter: 06/04/17 Time of Encounter: 10:50 Assessment and Plan (1) Acute cerebral infarction Current Visit: Yes Status: Acute 81 yo female presented with altered mental status after demonstrating right sided weakness, respiratory distress and AMS. Upon stabilization and evaluation she was found to have a Large left hemispheric cerebral infarcts involving the territory of the left middle cerebral artery. Repeat CT scan today shows a bit of mass effect however no evidence of subfalcine, uncal herniation on 2017. She has not maintained a blood pressure as desired for permissive hypertension which is concerning. There is a possibility with her severely reduced EF (currently 35%) may have resulted in mural thrombus and there would be risk that this may have resulted in migratory thrombus to her left MCA territory. Other risk factors would include recent LHC and stent placement this past week and discharge within 24-48hrs prior to her event. Today she has demonstrate mild improvement with response to voice and gripping with her left hand and attempt at left toe movements. She continues to have right sided flacid paralysis to be expected with her stroke territory. She should continue with her current dual antiplatelet therapy for her stents and continue stroke protocol. There was a lengthy discussion with Mrs. Mcgovern and family regarding her mild improvement at this time yet cautious optimism in her extent of recovery. At this time there is no need to perform re- imaging of her brain as she has demonstrated mild improvement and imaging at this time is not expected to change her care. Subjective Principal diagnosis: stroke Interval history: Mrs. Watt has been seen and evaluated at bedside this afternoon, evaluation was performed with Fentanyl turned off. She demonstrates eye opening with verbal commands and grasps when placing hand or objects in her left hand. She is moving her toes on her left foot but unsure if this is with command or spontaneous. Family was at bedside and all questions were answered. Objective - Constitutional Vitals: Temp Pulse Resp BP Pulse Ox 98.3 F 77 18 99/54 97 06/04/17 11:47 06/04/17 12:00 06/04/17 12:00 06/04/17 12:00 06/04/17 12:00 Exam: Ms. Watt is intubated and evaluated with sedation off. She opens eyes under verbal command. ET tube in place. GEN: Intubated, sedation off, ET tube in place, patient not fully following commands and flaccid paralysis of the right extremities HEENT: atraumatic, Eyes demonstrated left gaze preference with a right hemianopsia. neck supple an trachea midline Neuro examination: Flacid paralysis of the right extremities, patient demonstrates spontaneous movement of her left extremities and gripping with left hand when placing object in her hand. She is wiggling her toes but unsure if this is to commands or spontaneous movements. unable to fully evaluate sensation in her current mental state. Mild improvement of cognitive function when compared to yesterday. - Head Head exam: Present: atraumatic, normocephalic - Eye Eye exam: Present: PERRL - VTE Reasons for not Prescribing Prophylaxis: Not indicated-Anticoagulated or INR therapeutic Documentation of Mechanical Device: Intermittent pneumatic compression device Results - Laboratory Findings CBC and BMP: 06/04/17 03:10 06/04/17 03:10 Abnormal lab findings: Abnormal lab results RBC 3.23 M/mcL (3.82-4.97) L 06/04/17 03:10 Hgb 10.4 g/dL (11.5-15.4) L 06/04/17 03:10 Hct 31.5 % (35.3-44.9) L 06/04/17 03:10 Plt Count 135 K/mcL (140-400) L 06/04/17 03:10 Immature Plt Fraction 9.5 % (1.1-6.1) H 06/01/17 23:30 PT 15.0 Seconds (9.4-12.1) H 06/02/17 00:09 APTT 86.5 Seconds (26.0-36.0) H D 06/02/17 14:21 ABG pO2 118 mmHg (85-104) H D 06/02/17 05:04 ABG Total CO2 28 mEq/L (20-26) H 06/02/17 05:04 ABG O2 Saturation 99 % (95-98) H 06/02/17 05:04 VBG pH 7.45 pH Units (7.32-7.42) H 06/03/17 04:10 Chloride 108 mEq/L (98-107) H 06/04/17 03:10 Creatinine 0.52 mg/dL (0.60-1.20) L 06/04/17 03:10 BUN/Creatinine Ratio 31 (6-26) H 06/04/17 03:10 Glucose 172 mg/dL (70-105) H 06/04/17 03:10 POC Glucose 201 (58-89) H 06/04/17 04:23 Calcium 7.7 mg/dL (8.6-10.3) L 06/04/17 03:10 Venous Ioniz Calcium 1.00 mmol/L (1.15-1.35) L 06/03/17 04:10 Phosphorus 2.2 mg/dL (2.7-4.5) L 06/02/17 04:55 AST 51 Units/L (13-39) H 06/01/17 23:30 Troponin I 1.67 ng/mL (< 0.04) H* 06/02/17 14:21 B-Natriuretic Peptide 424 pg/mL (Less than 100) H 06/02/17 00:10 Serum Total Protein 5.3 g/dL (6.4-8.9) L 06/01/17 23:30 Albumin 2.9 g/dL (3.5-5.7) L 06/01/17 23:30 Urine Clarity Cloudy (Clear) A 06/01/17 23:31 Urine Ketones 15 mg/dL (Negative) H 06/01/17 23:31 Urine Bilirubin Small (Negative) H 06/01/17 23:31 Urine Urobilinogen 2.0 mg/dL (Normal) H 06/01/17 23:31 Consult Discharge Plan - Plan Referrals: Kateryna Aldridge, SALES OPERATIONS ASSISTANT [Primary Care Provider] - <Denny Soriano - Last Filed: 06/04/17 16:58> Date of Encounter: 06/04/17 Time of Encounter: 16:53 Assessment and Plan (1) Acute cerebral infarction Current Visit: Yes Status: Acute Chart reviewed, patient was seen and examined independently. Case was discussed with Dr. Leiva. I also discussed the case with the family at length. I did review the most recent CT scan of the brain which does reveal evolution of the previously identified left cerebral infarct, there is increasing mass effect. However she has been running hypotensive. Case was discussed with the ICU machine spring former and we decided that mannitol would likely not be beneficial in this case. 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 She maintains a right hemiparesis and right homonymous hemianopsia. At this point I will recommend we follow her peripherally. We will reevaluate at your request. Time spent today providing critical care the intensive care unit was 40 minutes. Objective - Constitutional Vitals: Temp Pulse Resp BP Pulse Ox 98.3 F 74 24 101/54 100 06/04/17 11:47 06/04/17 16:00 06/04/17 16:00 06/04/17 16:00 06/04/17 16:00 Results - Laboratory Findings CBC and BMP: 06/04/17 03:10 06/04/17 03:10 Abnormal lab findings: Abnormal lab results RBC 3.23 M/mcL (3.82-4.97) L 06/04/17 03:10 Hgb 10.4 g/dL (11.5-15.4) L 06/04/17 03:10 Hct 31.5 % (35.3-44.9) L 06/04/17 03:10 Plt Count 135 K/mcL (140-400) L 06/04/17 03:10 Immature Plt Fraction 9.5 % (1.1-6.1) H 06/01/17 23:30 PT 15.0 Seconds (9.4-12.1) H 06/02/17 00:09 APTT 86.5 Seconds (26.0-36.0) H D 06/02/17 14:21 ABG pO2 118 mmHg (85-104) H D 06/02/17 05:04 ABG Total CO2 28 mEq/L (20-26) H 06/02/17 05:04 ABG O2 Saturation 99 % (95-98) H 06/02/17 05:04 VBG pH 7.45 pH Units (7.32-7.42) H 06/03/17 04:10 Chloride 108 mEq/L (98-107) H 06/04/17 03:10 Creatinine 0.52 mg/dL (0.60-1.20) L 06/04/17 03:10 BUN/Creatinine Ratio 31 (6-26) H 06/04/17 03:10 Glucose 172 mg/dL (70-105) H 06/04/17 03:10 POC Glucose 201 (58-89) H 06/04/17 04:23 Calcium 7.7 mg/dL (8.6-10.3) L 06/04/17 03:10 Venous Ioniz Calcium 1.00 mmol/L (1.15-1.35) L 06/03/17 04:10 Phosphorus 2.2 mg/dL (2.7-4.5) L 06/02/17 04:55 AST 51 Units/L (13-39) H 06/01/17 23:30 Troponin I 1.67 ng/mL (< 0.04) H* 06/02/17 14:21 B-Natriuretic Peptide 424 pg/mL (Less than 100) H 06/02/17 00:10 Serum Total Protein 5.3 g/dL (6.4-8.9) L 06/01/17 23:30 Albumin 2.9 g/dL (3.5-5.7) L 06/01/17 23:30 Urine Clarity Cloudy (Clear) A 06/01/17 23:31 Urine Ketones 15 mg/dL (Negative) H 06/01/17 23:31 Urine Bilirubin Small (Negative) H 06/01/17 23:31 Urine Urobilinogen 2.0 mg/dL (Normal) H 06/01/17 23:31
--- NOTE | 2017-06-04 15:44 | Event Note ---
Date of Encounter: 06/04/17 Time of Encounter: 15:32 Patient progressed well after recent FL and was walking hallways at time of discharge. Unfortunately, she had a sudden change in neurological status while at home watching TV with her . After repeat admission, she would subsequently be diagnosed with a CVA with resultant hemiparesis and respiratory failure. I met with family to review prior hospital stay and discuss potential causes for acute CVA after discharge. I tried to answer all of their questions. They seemed to appreciate our conversation. Please call if I can be of any assistance. Thanks, Harmeet Macias
[2017-06-05] MEDS: FentaNYL (PF) 1,000 MCG in 0.9 % Sodium Chloride 80 ML IVC SCH ×2 (00:05→00:41)
[2017-06-05] MEDS: Lacri-Lube 3.5 GM TUBE BOTH EYES SCH ×6 (00:42→19:57)
[2017-06-05] MEDS: Insulin LISPRO 300 UNITS/3 ML VIAL SQ SCH ×5 (00:42→17:57)
[2017-06-05 03:44] LABS: Basophils % 0.4 %; Eosinophils # 0.1 K/mcL (0.0-0.6); Eosinophils % 0.9 %; Hematocrit 30.3 % (35.3-44.9); Hemoglobin 9.9 g/dL (11.5-15.4); Immature Granulocytes % 0.6 % (0-4); Lymphocytes # 1.2 K/mcL (0.6-4.6); Lymphocytes % 14.7 %; Mean Corpuscular HGB Conc 32.7 g/dL (31.6-35.5); Mean Corpuscular Hemoglobin 31.5 pg (28.0-33.3); Mean Corpuscular Volume 96.5 fL (83.0-100.0); Mean Platelet Volume 11.7 fL (9.4-12.4); Monocytes % 12.2 %; Neutrophils # 5.7 K/mcL (1.6-8.9); Platelet Count 137 K/mcL (140-400); Red Blood Count 3.14 M/mcL (3.82-4.97); Red Cell Distribution Width 13.1 % (11.5-14.5); Segmented Neutrophils % 71.2 %
[2017-06-05 04:00] LABS: BUN/Creatinine Ratio 39 (6-26); Blood Urea Nitrogen 21 mg/dL (8-23); Calcium 7.7 mg/dL (8.6-10.3); Carbon Dioxide 25 mEq/L (23-29); Chloride 105 mEq/L (98-107); Glucose 193 mg/dL (70-105); Osmolality,Calculated 290 (280-300); Potassium 3.6 mEq/L (3.5-5.1); Sodium 136 mEq/L (136-145); eGFR For African Americans > 60 (> 60); eGFR For Non-African Americans > 60 (> 60)
[2017-06-05] MEDS: Piperacillin/Tazobactam 3.375 GM in 0.9 % Sodium Chloride Mini Bag 100 ML IVPB SCH ×2 (04:27→12:14)
[2017-06-05] MEDS: *HR* Heparin 5,000 UNIT/ML VIAL SQ SCH ×2 (05:19→17:57)
[2017-06-05] MEDS: Pantoprazole 40 MG VIAL IVP SCH (08:10)
[2017-06-05] MEDS: *HR* Ticagrelor 90 MG TABLET GTUBE SCH (08:10)
[2017-06-05] MEDS: Chlorhexidine Rinse 15 ML MOUTHWASH MM SCH (08:10)
[2017-06-05] MEDS: Aspirin 81 MG TAB.CHEW GTUBE SCH (08:10)
[2017-06-05] MEDS ORDERED: *HR* Atropine Sulfate 1 MG/10 ML SYRINGE IV ONE (08:12)
[2017-06-05] MEDS ORDERED: *HR* Metoprolol 5 MG/5 ML VIAL IVP ONE (10:30)
[2017-06-05] MEDS ORDERED: *HR* Atropine Sulfate 1 MG/10 ML SYRINGE IVP ONE ×2 (11:25→14:23)
--- NOTE | 2017-06-05 11:27 | Pulmonology Progress Note ---
Date of Encounter: 06/05/17 Time of Encounter: 07:00 Assessment and Plan (1) Acute respiratory failure with hypoxia Current Visit: Yes Status: Acute Patient was intubated secondary to massive left MCA stroke has a very poor prognosis . (2) Acute cerebral infarction Current Visit: Yes Status: Acute Patient developed Left MCA stroke with huge left hemispheric infarct , distal ICA occlusion there is no evidence of internal carotid dissection according to vascular was on Heparin drip initially , Neurology recs appreciated very poor prognosis with given size of the infarct now developing vasomotor instability . Earlier in the course of the illness tried to transfer to [facility] for Neuro intervention , Neuro executive producer promos if the time frame and the size of the infarct patient will be a poor candidate . Family was explained about the poor prognosis . (3) CAD (coronary artery disease) Current Visit: Yes Status: Chronic Patient recently had a STEMI on dual antiplatelet therapy. Now with NSTEMI cardiology signed off Qualifiers: Coronary Disease-Associated Artery/Lesion type: [place] artery [place] vs. transplanted heart: [place] heart Associated angina: angina presence unspecified Qualified Code(s): I25.10 - Atherosclerotic heart disease of [place] coronary artery without angina pectoris (4) Left carotid artery occlusion Current Visit: Yes Status: Acute Vascular consulted no active intervention can be done . (5) Counseling regarding advanced care planning and goals of care Current Visit: Yes Status: Acute Patient developed vasomotor instability with rapid swings of bradyarrythmias and Tachyarrhythmias family changed the goals of care to DNRCCA Subjective Principal diagnosis: stroke Interval history: Patient is restless not opening her eyes , not following commands having this episodes of bradycardia in the 40's to Tachyarrhythmias in 120's . Family was updated about the vasomotor instability due to cerebral edema . Family changed her Code status to DNRCCA. Objective PUL Vital signs: Last Vital Signs Temp 98.6 F 06/05/17 07:58 Pulse 74 06/05/17 10:00 Resp 26 06/05/17 10:00 BP 117/66 06/05/17 10:00 Pulse Ox 95 06/05/17 10:00 Auscultation: bilateral: diminished breath sounds (BASILAR diminished breadth sounds ) Cardiovascular: irregular rhythm (with extreme bradyarrythmias ) unable to assess due to mental status, other (Right sided dense hemiplegia with intact brain stem reflexes ) Ventilator Settings Ventilator Settings: Ventilator Settings, Last 8 Hours Ventilator Mode VC+ Ventilator Mode CPAP Ventilator Mode CPAP Ventilator Mode CPAP Ventilator Mode CPAP Ventilator Mode CPAP Ventilator Mode CPAP Ventilator Mode CPAP Ventilator Mode CPAP Ventilator Mode A/C Ventilator Tidal Volume 400 Setting Ventilator Tidal Volume 400 Setting Ventilator Respiratory Rate 12 Setting Ventilator Respiratory Rate 12 Setting Actual Respiratory Rate 26 Actual Respiratory Rate 27 Actual Respiratory Rate 24 Actual Respiratory Rate 24 Actual Respiratory Rate 28 Actual Respiratory Rate 25 Actual Respiratory Rate 26 Actual Respiratory Rate 26 Actual Respiratory Rate 26 Actual Respiratory Rate 16 Positive End Expiratory 5 Pressure Positive End Expiratory 5 Pressure Positive End Expiratory 5 Pressure Positive End Expiratory 5 Pressure Positive End Expiratory 5 Pressure Positive End Expiratory 5 Pressure Positive End Expiratory 5 Pressure Positive End Expiratory 5 Pressure Positive End Expiratory 5 Pressure Positive End Expiratory 5 Pressure Peak Inspiratory Airway 14 Pressure Peak Inspiratory Airway 14 Pressure Peak Inspiratory Airway 14 Pressure Peak Inspiratory Airway 13 Pressure Peak Inspiratory Airway 13 Pressure Peak Inspiratory Airway 14 Pressure Peak Inspiratory Airway 13 Pressure Peak Inspiratory Airway 14 Pressure Peak Inspiratory Airway 35 Pressure Results - Laboratory Findings CBC and BMP: 06/05/17 03:31 06/05/17 03:31 ABG ABG pH 7.41 pH Units (7.32-7.45) 06/02/17 05:04 ABG pCO2 43 mmHg (35-45) 06/02/17 05:04 ABG pO2 118 mmHg (85-104) H D 06/02/17 05:04 ABG O2 Saturation 99 % (95-98) H 06/02/17 05:04 PT/INR, D-dimer PT 15.0 Seconds (9.4-12.1) H 06/02/17 00:09 Abnormal lab findings: Abnormal lab results RBC 3.14 M/mcL (3.82-4.97) L 06/05/17 03:31 Hgb 9.9 g/dL (11.5-15.4) L 06/05/17 03:31 Hct 30.3 % (35.3-44.9) L 06/05/17 03:31 Plt Count 137 K/mcL (140-400) L 06/05/17 03:31 Immature Plt Fraction 9.5 % (1.1-6.1) H 06/01/17 23:30 PT 15.0 Seconds (9.4-12.1) H 06/02/17 00:09 APTT 86.5 Seconds (26.0-36.0) H D 06/02/17 14:21 ABG pO2 118 mmHg (85-104) H D 06/02/17 05:04 ABG Total CO2 28 mEq/L (20-26) H 06/02/17 05:04 ABG O2 Saturation 99 % (95-98) H 06/02/17 05:04 VBG pH 7.45 pH Units (7.32-7.42) H 06/03/17 04:10 Creatinine 0.54 mg/dL (0.60-1.20) L 06/05/17 03:31 BUN/Creatinine Ratio 39 (6-26) H 06/05/17 03:31 Glucose 193 mg/dL (70-105) H 06/05/17 03:31 POC Glucose 209 (58-89) H 06/05/17 00:27 Calcium 7.7 mg/dL (8.6-10.3) L 06/05/17 03:31 Venous Ioniz Calcium 1.00 mmol/L (1.15-1.35) L 06/03/17 04:10 Phosphorus 2.2 mg/dL (2.7-4.5) L 06/02/17 04:55 AST 51 Units/L (13-39) H 06/01/17 23:30 Troponin I 1.67 ng/mL (< 0.04) H* 06/02/17 14:21 B-Natriuretic Peptide 424 pg/mL (Less than 100) H 06/02/17 00:10 Serum Total Protein 5.3 g/dL (6.4-8.9) L 06/01/17 23:30 Albumin 2.9 g/dL (3.5-5.7) L 06/01/17 23:30 Urine Clarity Cloudy (Clear) A 06/01/17 23:31 Urine Ketones 15 mg/dL (Negative) H 06/01/17 23:31 Urine Bilirubin Small (Negative) H 06/01/17 23:31 Urine Urobilinogen 2.0 mg/dL (Normal) H 06/01/17 23:31 Vancomycin Trough 7.0 mcg/mL (10-20) L 06/04/17 22:16 - Clinical Findings Intake & Output: Intake & Output 06/04/17 06/05/17 06/05/17 23:59 07:59 15:59 Intake Total 607 / 607 1311 / 1311 130 / 130 Output Total 150 / 150 400 / 400 Balance 457 / 457 911 / 911 130 / 130 Weight 65 kg - VTE Reasons for not Prescribing Prophylaxis: Not indicated-Anticoagulated or INR therapeutic Documentation of Mechanical Device: Intermittent pneumatic compression device Consult Discharge Plan - Plan Referrals: Kateryna Aldridge, FRUIT GRADER OPERATOR [Primary Care Provider] -
--- NOTE | 2017-06-05 11:35 | Event Note ---
Date of Encounter: 06/05/17 Time of Encounter: 11:30 Patient suddenly developed bradycardia in the 40'S updated family this can be due to cerebral edema according to patient wishes , family doesnt want any chest compressions if the heart has to stop . The Code status was changed to DNRCCA -I
--- NOTE | 2017-06-05 17:33 | Event Note ---
Date of Encounter: 06/05/17 Time of Encounter: 17:32 Family has discussed at this time they wish for palliative extubation; will contact Palliative and proceed with starting palliative extubation shortly.
--- NOTE | 2017-06-05 18:41 | Event Note ---
Date of Encounter: 06/05/17 Time of Encounter: 18:30 Family desires to transition patient to comfort care. Patient with recent TN and suffered CVA post TN. Patient with symptomatic bradycardia today. Requiring [address] Wild discussed patients poor prognosis with patients family and patient made DNRCC - A. Family now desires to withdrawal care and maintain patients comfort. Conducted bedside meeting and family ready for extubation. Educated on process and explained that medications would be DC'd and comfort cafe approach would be taken. Family verbalized understanding and patient is now DNRCC - Comfort Care.
--- NOTE | 2017-06-05 19:05 | Palliative Progress Note ---
Date of Encounter: 06/05/17 Time of Encounter: 19:00 - Assessment and plan (1) Dyspnea Current Visit: No Status: Acute Assessment and plan: Patient now extubated. Maintaining O2 sat at 94% with 2L NC. HOB up. Plan: - Suction PRN - Supplemental O2 - Fentanyl gtt - Position for comfort of breathing - Monitor O2 sats Qualifiers: Dyspnea type: other forms of dyspnea Qualified Code(s): R06.09 - Other forms of dyspnea (2) Anxiety Current Visit: No Status: Acute Assessment and plan: PRN lorazepam for anxiety. (3) Counseling regarding advanced care planning and goals of care Current Visit: Yes Status: Acute Assessment and plan: Patient now a DNRCC - Comfort care. All medications and tube feedings stopped. Patient vital signs stable for now. Family educated on comfort care and possible transition to palliative care bed if she remains stable. Fentanyl drip for comfort and explained process for medicating based on symptoms and clinical needs. Bedside prayer conducted by patients personal interactive developer. Case discussed with ICU Dr. Herrera. (4) Acute cerebral infarction Current Visit: Yes Status: Acute Assessment and plan: Patient s/p massive CVA. Family desired transition to comfort care. Patient extubated now. If patient remains stable will transition to palliative care bed and continue to monitor. (5) ST elevation myocardial infarction (STEMI) Current Visit: No Status: Acute Qualifiers: Involved coronary artery: LAD coronary artery Qualified Code(s): I21.02 - ST elevation (STEMI) myocardial infarction involving left anterior descending coronary artery - Time Spent With Patient Total time spent is greater than 50% in coordination of care (as documented) at patient's floor/unit and/or counseling patient: Greater than 35 minutes - Subjective Interval history: Patient developed Left MCA stroke with huge left hemispheric infarct. Family was explained about the poor prognosis and now desire compassionate extubation. - Constitutional Vitals: Abnormal lab results RBC 3.14 M/mcL (3.82-4.97) L 06/05/17 03:31 Hgb 9.9 g/dL (11.5-15.4) L 06/05/17 03:31 Hct 30.3 % (35.3-44.9) L 06/05/17 03:31 Plt Count 137 K/mcL (140-400) L 06/05/17 03:31 Immature Plt Fraction 9.5 % (1.1-6.1) H 06/01/17 23:30 PT 15.0 Seconds (9.4-12.1) H 06/02/17 00:09 APTT 86.5 Seconds (26.0-36.0) H D 06/02/17 14:21 ABG pO2 118 mmHg (85-104) H D 06/02/17 05:04 ABG Total CO2 28 mEq/L (20-26) H 06/02/17 05:04 ABG O2 Saturation 99 % (95-98) H 06/02/17 05:04 VBG pH 7.45 pH Units (7.32-7.42) H 06/03/17 04:10 Creatinine 0.54 mg/dL (0.60-1.20) L 06/05/17 03:31 BUN/Creatinine Ratio 39 (6-26) H 06/05/17 03:31 Glucose 193 mg/dL (70-105) H 06/05/17 03:31 POC Glucose 209 (58-89) H 06/05/17 00:27 Calcium 7.7 mg/dL (8.6-10.3) L 06/05/17 03:31 Venous Ioniz Calcium 1.00 mmol/L (1.15-1.35) L 06/03/17 04:10 Phosphorus 2.2 mg/dL (2.7-4.5) L 06/02/17 04:55 AST 51 Units/L (13-39) H 06/01/17 23:30 Troponin I 0.31 ng/mL (< 0.04) H* 06/05/17 10:53 B-Natriuretic Peptide 424 pg/mL (Less than 100) H 06/02/17 00:10 Serum Total Protein 5.3 g/dL (6.4-8.9) L 06/01/17 23:30 Albumin 2.9 g/dL (3.5-5.7) L 06/01/17 23:30 Urine Clarity Cloudy (Clear) A 06/01/17 23:31 Urine Ketones 15 mg/dL (Negative) H 06/01/17 23:31 Urine Bilirubin Small (Negative) H 06/01/17 23:31 Urine Urobilinogen 2.0 mg/dL (Normal) H 06/01/17 23:31 Vancomycin Trough 7.0 mcg/mL (10-20) L 06/04/17 22:16 - Head Head exam: Present: atraumatic, normal inspection - Eye Eye exam: Present: PERRL - ENT ENT exam: Present: mucous membranes moist - Respiratory Respiratory exam: Present: decreased breath sounds - Expanded Respiratory Exam Location: decreased breath sounds: Left, Right, Lower - Cardiovascular Cardiovascular exam: Present: +S1, +S2 (bradycardia) - Expanded Cardiovascular Exam Peripheral pulses: 1+: Femoral (L) PM, Femoral (R) PM, Posterior Tibialis (L), Posterior Tibialis (R), 2+: Carotid (L) PM, Carotid (R) PM, Radial (L), Radial ( R), Dorsalis Pedis (L) PM, Dorsalis Pedis (R) PM - GI/Abdominal GI/Abdominal exam: Present: soft - Extremities Exam Additional comments: Right hemipalegia - Neurological Exam Neurological exam: Present: altered, motor sensory deficit, facial droop - Psychiatric Psychiatric exam: Present: flat affect - Skin Skin exam: Present: pallor, warm Palliative Quality Palliative Quality: Screen for Code Status: Yes, Screen for Goals of Care: Yes, Screen for Pain: Yes, If Pain Regimen Started, Initiate Bowel Regimen: NA, Screen for Nausea/Vomitting: Yes Code Status: 06/02/17 01:40 Resuscitation Status: Active [RES] Routine Comment: Resuscitation Status: Full Code 06/05/17 11:26 CODE [Resuscitation Status: Active] [RES] Routine Comment: Resuscitation Status: DNR-Comfort Care-Arrest 06/05/17 18:22 CODE [Resuscitation Status: Active] [RES] Routine Comment: Resuscitation Status: DNR-Comfort Care - Labs CBC & Chem 7: 06/05/17 03:31 06/05/17 03:31 Labs: Laboratory Results - last 24 hr 06/04/17 06/04/17 06/04/17 07:36 11:31 16:26 WBC RBC Hgb Hct MCV MCH MCHC RDW Plt Count MPV Immature Gran % Seg Neutrophils % Lymphocytes % Monocytes % Eosinophils % Basophils % Neutrophils # Lymphocytes # Monocytes # Eosinophils # Basophils # Sodium Potassium Chloride Carbon Dioxide BUN Creatinine Est GFR ( Amer) Est GFR (Non-Af Amer) BUN/Creatinine Ratio Glucose POC Glucose 165 H 167 H 186 H Calculated Osmolality Calcium Troponin I Vancomycin Trough 06/04/17 06/04/17 06/05/17 20:01 22:16 00:27 WBC RBC Hgb Hct MCV MCH MCHC RDW Plt Count MPV Immature Gran % Seg Neutrophils % Lymphocytes % Monocytes % Eosinophils % Basophils % Neutrophils # Lymphocytes # Monocytes # Eosinophils # Basophils # Sodium Potassium Chloride Carbon Dioxide BUN Creatinine Est GFR ( Amer) Est GFR (Non-Af Amer) BUN/Creatinine Ratio Glucose POC Glucose 128 H 209 H Calculated Osmolality Calcium Troponin I Vancomycin Trough 7.0 L 06/05/17 06/05/17 06/05/17 03:31 03:31 10:53 WBC 8.0 RBC 3.14 L Hgb 9.9 L Hct 30.3 L MCV 96.5 MCH 31.5 MCHC 32.7 RDW 13.1 Plt Count 137 L MPV 11.7 Immature Gran % 0.6 Seg Neutrophils % 71.2 Lymphocytes % 14.7 Monocytes % 12.2 Eosinophils % 0.9 Basophils % 0.4 Neutrophils # 5.7 Lymphocytes # 1.2 Monocytes # 1.0 Eosinophils # 0.1 Basophils # 0.0 Sodium 136 Potassium 3.6 Chloride 105 Carbon Dioxide 25 BUN 21 Creatinine 0.54 L Est GFR ( Amer) > 60 Est GFR (Non-Af Amer) > 60 BUN/Creatinine Ratio 39 H Glucose 193 H POC Glucose Calculated Osmolality 290 Calcium 7.7 L Troponin I 0.31 H* Vancomycin Trough - ABG Interpretation ABG results: ABG ABG pH 7.41 pH Units (7.32-7.45) 06/02/17 05:04 ABG pCO2 43 mmHg (35-45) 06/02/17 05:04 ABG pO2 118 mmHg (85-104) H D 06/02/17 05:04 ABG O2 Saturation 99 % (95-98) H 06/02/17 05:04 PT/INR, D-dimer PT 15.0 Seconds (9.4-12.1) H 06/02/17 00:09 Consult Discharge Plan - Plan Referrals: Kateryna Aldridge, TARGET DEVELOPER [Primary Care Provider] -
[2017-06-05] MEDS: Atropine Sulfate 1% 40 DROP/2 ML BOTTLE SL PRN ×2 (19:56→22:35)
[2017-06-05 21:20] LABS: CK-BB (CK isoenzymes) 0 % (0-0); CK-MB (CK isoenzymes) 0 % (0-4); CK-MM (CK-isoenzymes) 100 % (96-100)
[2017-06-05 21:20] LABS: CK-BB (CK isoenzymes) 0 % (0-0); CK-MB (CK isoenzymes) 0 % (0-4); CK-MM (CK-isoenzymes) 100 % (96-100)
[2017-06-05 21:20] LABS: CK-BB (CK isoenzymes) 0 % (0-0); CK-MB (CK isoenzymes) 0 % (0-4); CK-MM (CK-isoenzymes) 100 % (96-100)
[2017-06-05] MEDS: OXYCODONE Oral CONC 10 MG/0.5 ML ORAL.SYG SL PRN (22:35)
[2017-06-05] MEDS: *HR* LORazepam 2 MG/ML VIAL IVP PRN (22:36)
[2017-06-06] MEDS: Lacri-Lube 3.5 GM TUBE BOTH EYES SCH ×3 (00:16→08:45)
[2017-06-06] MEDS: Acetaminophen 650 MG RECTAL SUPP RC SCH ×4 (02:45→17:11)
[2017-06-06] MEDS: *HR* LORazepam 2 MG/ML VIAL IVP PRN ×8 (03:20→22:13)
[2017-06-06] MEDS: Atropine Sulfate 1% 40 DROP/2 ML BOTTLE SL PRN ×2 (04:48→13:16)
[2017-06-06 06:16] LABS: Hematocrit 32.5 % (35.3-44.9); Hemoglobin 10.4 g/dL (11.5-15.4); Mean Platelet Volume 12.1 fL (9.4-12.4); Platelet Count 179 K/mcL (140-400); Red Blood Count 3.35 M/mcL (3.82-4.97); Red Cell Distribution Width 12.9 % (11.5-14.5)
[2017-06-06] MEDS ORDERED: 0.9 % Sodium Chloride 250 ML ONE (06:26)
[2017-06-06 06:32] LABS: BUN/Creatinine Ratio 39 (6-26); Blood Urea Nitrogen 25 mg/dL (8-23); Carbon Dioxide 26 mEq/L (23-29); Chloride 105 mEq/L (98-107); Glucose 108 mg/dL (70-105); Osmolality,Calculated 291 (280-300); Potassium 3.7 mEq/L (3.5-5.1); Sodium 138 mEq/L (136-145); eGFR For African Americans > 60 (> 60); eGFR For Non-African Americans > 60 (> 60)
[2017-06-06] MEDS ORDERED: Aminoglycoside Consult 1 EACH MC ONE (07:53)
[2017-06-06] MEDS: OXYCODONE Oral CONC 10 MG/0.5 ML ORAL.SYG SL PRN (08:53)
[2017-06-06] MEDS: FentaNYL (PF) 1,000 MCG in 0.9 % Sodium Chloride 80 ML IVC SCH ×2 (08:54→12:29)
--- NOTE | 2017-06-06 09:08 | Palliative Progress Note ---
Date of Encounter: 06/06/17 Time of Encounter: 08:45 - Assessment and plan (1) Difficulty clearing secretions Current Visit: Yes Status: Acute Assessment and plan: Patient with massive CVA and dysphagia. - Orally suction for airway management - Atropine gtts prn - Scopolomine patch orderd - HOB up to facilitate drainage of oral secretions from right side of mouth. - Family educated on need to manage secretions. (2) Dyspnea Current Visit: No Status: Acute Assessment and plan: Maintaining O2 sat at 94% with 2L NC. HOB up. Plan: - Suction PRN - Supplemental O2 - Fentanyl gtt - Position for comfort of breathing - Monitor O2 sats Qualifiers: Dyspnea type: other forms of dyspnea Qualified Code(s): R06.09 - Other forms of dyspnea (3) Anxiety Current Visit: No Status: Acute Assessment and plan: PRN lorazepam for anxiety. (4) Counseling regarding advanced care planning and goals of care Current Visit: Yes Status: Acute Assessment and plan: Patient now a DNRCC - Comfort care. All medications and tube feedings stopped. Patient vital signs stable for now. Fentanyl drip for comfort and explained process for medicating based on symptoms and clinical needs. Educated family on dying process. Explained that patient is clinically stable with B/P 100/48. Explained that patient has had massive CVA and clinical picture is poor but unable to provide exact timeline of . Provided support and family agree to have IV restarted if needed to continue IV fentanyl. Patient with secretions and poor swallowing from CVA. If patient survives next 24 hours will transition to inpatient hospice services tomorrow. Remains of hospitalist service for today and will transition in AM. (5) Acute cerebral infarction Current Visit: Yes Status: Acute Assessment and plan: Patient s/p massive CVA. DNRCC - Comfort Care (6) ST elevation myocardial infarction (STEMI) Current Visit: No Status: Acute Qualifiers: Involved coronary artery: LAD coronary artery Qualified Code(s): I21.02 - ST elevation (STEMI) myocardial infarction involving left anterior descending coronary artery - Time Spent With Patient Total time spent is greater than 50% in coordination of care (as documented) at patient's floor/unit and/or counseling patient: 25 - 35 minutes - Subjective Interval history: Patient stable at present. Family in room and at bedside. Patient eyes closed, respirations easy. Fentanyl drip at 25 mcg. Patient with massive CVA. Pooling secretions to right side of mouth. Light oral suction to clear airway. Discussed current condition with family. Explained that clinically she is maintaining stable vital signs. - Constitutional Vitals: Abnormal lab results RBC 3.35 M/mcL (3.82-4.97) L 06/06/17 04:57 Hgb 10.4 g/dL (11.5-15.4) L 06/06/17 04:57 Hct 32.5 % (35.3-44.9) L 06/06/17 04:57 Immature Plt Fraction 9.5 % (1.1-6.1) H 06/01/17 23:30 PT 15.0 Seconds (9.4-12.1) H 06/02/17 00:09 APTT 86.5 Seconds (26.0-36.0) H D 06/02/17 14:21 ABG pO2 118 mmHg (85-104) H D 06/02/17 05:04 ABG Total CO2 28 mEq/L (20-26) H 06/02/17 05:04 ABG O2 Saturation 99 % (95-98) H 06/02/17 05:04 VBG pH 7.45 pH Units (7.32-7.42) H 06/03/17 04:10 BUN 25 mg/dL (8-23) H 06/06/17 04:57 BUN/Creatinine Ratio 39 (6-26) H 06/06/17 04:57 Glucose 108 mg/dL (70-105) H 06/06/17 04:57 POC Glucose 116 (58-89) H 06/05/17 15:13 Calcium 8.0 mg/dL (8.6-10.3) L 06/06/17 04:57 Venous Ioniz Calcium 1.00 mmol/L (1.15-1.35) L 06/03/17 04:10 Phosphorus 2.2 mg/dL (2.7-4.5) L 06/02/17 04:55 AST 51 Units/L (13-39) H 06/01/17 23:30 Troponin I 0.31 ng/mL (< 0.04) H* 06/05/17 10:53 B-Natriuretic Peptide 424 pg/mL (Less than 100) H 06/02/17 00:10 Serum Total Protein 5.3 g/dL (6.4-8.9) L 06/01/17 23:30 Albumin 2.9 g/dL (3.5-5.7) L 06/01/17 23:30 Urine Clarity Cloudy (Clear) A 06/01/17 23:31 Urine Ketones 15 mg/dL (Negative) H 06/01/17 23:31 Urine Bilirubin Small (Negative) H 06/01/17 23:31 Urine Urobilinogen 2.0 mg/dL (Normal) H 06/01/17 23:31 Vancomycin Trough 7.0 mcg/mL (10-20) L 06/04/17 22:16 - Head Head exam: Present: atraumatic, normal inspection - Eye Eye exam: Present: PERRL - ENT ENT exam: Present: mucous membranes moist - Respiratory Respiratory exam: Present: decreased breath sounds - Expanded Respiratory Exam Location: decreased breath sounds: Left, Right, Lower - Cardiovascular Cardiovascular exam: Present: RRR, +S1, +S2 - GI/Abdominal GI/Abdominal exam: Present: hypoactive bowel sounds, soft - Additional comments: Diez with clear yellow urine. - Extremities Exam Extremities exam: Present: pedal edema Additional comments: 1+ pitting, warm extremities. - Neurological Exam Neurological exam: Present: altered (patient with massive CVA with right side hemiplagia. Nonresponsive to verbal stimuli) - Expanded Neurological Exam Neurological exam: Present: total aphasia Speech: Present: slurred Coma Scale Eye Opening: To Pain Coma Scale Motor Response: Withdraws to Pain (withdrawls left side slightly) Coma Scale Verbal Response: Incomprehensible Coma Scale Total: 8 - Psychiatric Psychiatric exam: Present: flat affect - Skin Skin exam: Present: pallor, warm Palliative Quality Palliative Quality: Screen for Code Status: Yes, Screen for Goals of Care: Yes, Screen for Pain: Yes, If Pain Regimen Started, Initiate Bowel Regimen: NA, Screen for Nausea/Vomitting: Yes Code Status: 06/02/17 01:40 Resuscitation Status: Active [RES] Routine Comment: Resuscitation Status: Full Code 06/05/17 11:26 CODE [Resuscitation Status: Active] [RES] Routine Comment: Resuscitation Status: DNR-Comfort Care-Arrest 06/05/17 18:22 CODE [Resuscitation Status: Active] [RES] Routine Comment: Resuscitation Status: DNR-Comfort Care - Labs CBC & Chem 7: 06/06/17 04:57 06/06/17 04:57 Labs: Laboratory Results - last 24 hr 06/05/17 06/05/17 06/05/17 04:43 07:15 10:53 WBC RBC Hgb Hct MCV MCH MCHC RDW Plt Count MPV Sodium Potassium Chloride Carbon Dioxide BUN Creatinine Est GFR ( Amer) Est GFR (Non-Af Amer) BUN/Creatinine Ratio Glucose POC Glucose 215 H 126 H Calculated Osmolality Calcium Troponin I 0.31 H* 06/05/17 06/05/17 06/06/17 11:27 15:13 04:57 WBC 7.3 RBC 3.35 L Hgb 10.4 L Hct 32.5 L MCV 97.0 MCH 31.0 MCHC 32.0 RDW 12.9 Plt Count 179 MPV 12.1 Sodium Potassium Chloride Carbon Dioxide BUN Creatinine Est GFR ( Amer) Est GFR (Non-Af Amer) BUN/Creatinine Ratio Glucose POC Glucose 129 H 116 H Calculated Osmolality Calcium Troponin I 06/06/17 04:57 WBC RBC Hgb Hct MCV MCH MCHC RDW Plt Count MPV Sodium 138 Potassium 3.7 Chloride 105 Carbon Dioxide 26 BUN 25 H Creatinine 0.64 Est GFR ( Amer) > 60 Est GFR (Non-Af Amer) > 60 BUN/Creatinine Ratio 39 H Glucose 108 H POC Glucose Calculated Osmolality 291 Calcium 8.0 L Troponin I - ABG Interpretation ABG results: ABG ABG pH 7.41 pH Units (7.32-7.45) 06/02/17 05:04 ABG pCO2 43 mmHg (35-45) 06/02/17 05:04 ABG pO2 118 mmHg (85-104) H D 06/02/17 05:04 ABG O2 Saturation 99 % (95-98) H 06/02/17 05:04 PT/INR, D-dimer PT 15.0 Seconds (9.4-12.1) H 06/02/17 00:09 Consult Discharge Plan - Plan Referrals: Kateryna Aldridge, REGISTERED DIETICIAN [Primary Care Provider] -
[2017-06-06] MEDS ORDERED: Scopolamine Patch 1.5 MG PATCH.TD72 TD SCH (09:15)
[2017-06-06] MEDS: Haloperidol Lactate 5 MG/ML VIAL IVP PRN (12:33)
--- NOTE | 2017-06-06 12:52 | Internal Med Progress Note ---
Date of Encounter: 06/06/17 Time of Encounter: 11:30 - Assessment and plan (1) CVA (cerebral vascular accident) Current Visit: Yes Status: Acute Qualifiers: CVA mechanism: embolism Precerebral and cerebral artery: middle cerebral artery Laterality of affected vessel: left Qualified Code(s): I63.412 - Cerebral infarction due to embolism of left middle cerebral artery (2) ST elevation myocardial infarction (STEMI) Current Visit: No Status: Acute Qualifiers: Involved coronary artery: LAD coronary artery Qualified Code(s): I21.02 - ST elevation (STEMI) myocardial infarction involving left anterior descending coronary artery (3) CAD (coronary artery disease) Current Visit: Yes Status: Chronic Qualifiers: Coronary Disease-Associated Artery/Lesion type: [place] artery [place] vs. transplanted heart: [place] heart Associated angina: angina presence unspecified Qualified Code(s): I25.10 - Atherosclerotic heart disease of [place] coronary artery without angina pectoris - Subjective Interval history: Ms Mcgovern is currently admitted for acute CT and CVA. She is now DNRCC and palliative care patient. Ms Mcgovern appears to be comfortable at this time. - Constitutional Vitals: Temp Pulse Resp BP Pulse Ox 98.4 F 74 16 100/66 94 06/06/17 08:18 06/06/17 08:18 06/06/17 08:18 06/06/17 08:18 06/06/17 08:18 General appearance: Present: A&O X 0 (Intubated. Sedated with precedex. Analgesia with fentanyl.) Exam: Unresponsive. - Head Head exam: Present: normocephalic - ENT ENT exam: Present: mucous membranes dry - Respiratory Respiratory exam: Present: decreased breath sounds - Cardiovascular Cardiovascular exam: Present: RRR - GI/Abdominal GI/Abdominal exam: Present: soft - Extremities Exam Extremities exam: Present: warm - Neurological Exam Additional comments: Unresponsive. Kussmaul respirations noted. - Skin Skin exam: Present: warm Internal Medicine: Result - Labs CBC & Chem 7: 06/06/17 04:57 06/06/17 04:57 Labs: Short CBC 06/06/17 Range/Units 04:57 WBC 7.3 (4.3-11.1) K/mcL Hgb 10.4 L (11.5-15.4) g/dL Hct 32.5 L (35.3-44.9) % Plt Count 179 (140-400) K/mcL BMP 06/06/17 04:57 Sodium 138 Potassium 3.7 Chloride 105 Carbon Dioxide 26 BUN 25 H Creatinine 0.64 Glucose 108 H Calcium 8.0 L - ABG Interpretation ABG results: ABG ABG pH 7.41 pH Units (7.32-7.45) 06/02/17 05:04 ABG pCO2 43 mmHg (35-45) 06/02/17 05:04 ABG pO2 118 mmHg (85-104) H D 06/02/17 05:04 ABG O2 Saturation 99 % (95-98) H 06/02/17 05:04 PT/INR, D-dimer PT 15.0 Seconds (9.4-12.1) H 06/02/17 00:09 - VTE Reasons for not Prescribing Prophylaxis: Not indicated-Anticoagulated or INR therapeutic Documentation of Mechanical Device: Intermittent pneumatic compression device Consult Discharge Plan - Plan Referrals: Kateryna Aldridge EDUCATIONAL INSTITUTION CURATOR [Primary Care Provider] -
[2017-06-06] MEDS ORDERED: 0.9 % Sodium Chloride 500 ML ONE (17:12)
[2017-06-07] MEDS: Acetaminophen 650 MG RECTAL SUPP RC SCH ×3 (01:39→12:15)
[2017-06-07] MEDS: *HR* LORazepam 2 MG/ML VIAL IVP PRN ×4 (02:33→11:38)
[2017-06-07] MEDS: OXYCODONE Oral CONC 10 MG/0.5 ML ORAL.SYG SL PRN (06:26)
[2017-06-07 07:31] VITALS: BP 96/61
--- NOTE | 2017-06-07 08:08 | Discharge Summary ---
Orders not resulted at time of discharge: Pending orders 06/02/17 04:55 CK Isoenzymes Q4H 06/02/17 08:42 CK Isoenzymes Q4H 06/02/17 14:21 CK Isoenzymes Q4H 06/05/17 10:31 ECG 12 lead ECG [ECG] Stat ECG 12 lead ECG [ECG] Stat Date of Encounter: 06/07/17 Time of Encounter: 08:08 - Discharge Diagnosis (1) CVA (cerebral vascular accident) Priority: Primary Status: Acute Qualifiers: CVA mechanism: embolism Precerebral and cerebral artery: middle cerebral artery Laterality of affected vessel: left Qualified Code(s): I63.412 - Cerebral infarction due to embolism of left middle cerebral artery (2) ST elevation myocardial infarction (STEMI) Priority: Primary Status: Resolved Qualifiers: Involved coronary artery: LAD coronary artery Qualified Code(s): I21.02 - ST elevation (STEMI) myocardial infarction involving left anterior descending coronary artery (3) CAD (coronary artery disease) Priority: Secondary Status: Chronic Qualifiers: Coronary Disease-Associated Artery/Lesion type: [place] artery [place] vs. transplanted heart: [place] heart Associated angina: angina presence unspecified Qualified Code(s): I25.10 - Atherosclerotic heart disease of [place] coronary artery without angina pectoris (4) Acute respiratory failure with hypoxia Priority: Primary Status: Resolved Hospital course: Ms. Mcgovern is a 81 year old female admitted with acute STEMI. Subsequently had large CVA. Ms Mcgovern presented to ED with acute respiratory failure due to STEMI. She was taken to rags laborer and had MYAH to mid and proximal LAD. On admission she also had aphasia and R side weakness and was presumed to have acute CVA as well. She was admitted to ICU on ventilator. Ms Mcgovern was admitted to ICU on ventilator. MRI revealed large L MCA infarction without hemorrhage but did have cytotoxic edema. Due to extent of CVA she was also seen by palliative care service. Initial attempts at weaning were unsuccessful. Discussions with family and palliative care regarding plan of care. Ultimately she was compassionately extubated and transferred to 2 A. At this time she is unresponsive on Fentanyl drip. She is having Kussmaul respirations. She will be transitioned to hospice service. - Time Spent with Patient Total time spent providing and/or coordinating discharge services: 18min - Discharge Medications Home Medications: Aspirin [Adult Aspirin Regimen] 81 mg PO DAILY #30 tablet.dr 06/01/17 [Rx] Carvedilol 3.125 mg PO BID #60 tab 06/01/17 [Rx] Ticagrelor [Brilinta] 90 mg PO BID #60 tablet 06/01/17 [Rx] Allergies/Adverse Reactions: 3 Allergy/AdvReac Type Severity Reaction Status Date / Time ezetimibe [From Zetia] AdvReac Cramping Verified 05/30/17 10:58 of the Muscles fenofibrate [From Tricor] AdvReac Cramping Verified 05/30/17 10:58 of the Muscles rosuvastatin [From Crestor] AdvReac Cramping Verified 05/30/17 10:58 of the Muscles simvastatin AdvReac Cramping Verified 05/30/17 10:58 of the Muscles Date of admission: 06/02/17 01:27 Primary care physician: Kateryna Aldridge CNP Consults: 06/02/17 04:38 Consult to Neurology [CONS] Routine Consulting Provider: [facility] Reason for Consult: Suspect left sided stroke causing aphasia and right sided motor deficits. Intubated, sedated w/ propofol, fentanyl. Time Notified: 04:39 Call Completed: No Consult to Pulmonology [CONS] Routine Consulting Provider: [facility] Reason for Consult: Intubated. 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 Just admitted for NSTEMI. goals of care Call Completed: Yes Discharging clinician: Mitchell Dorado Anticipated date of discharge: 06/07/17 - Constitutional Vitals: Temp Pulse Resp BP Pulse Ox 98.3 F 65 16 96/61 94 06/07/17 07:31 06/07/17 07:31 06/06/17 19:58 06/07/17 07:31 06/07/17 07:31 General appearance: Present: A&O X 0 (Intubated. Sedated with precedex. Analgesia with fentanyl.) - Head Head exam: Present: normocephalic - Respiratory Respiratory exam: Present: rhonchi Additional comments: Kussmaul respirations - Cardiovascular Cardiovascular exam: Present: RRR - Patient Status Disposition: Hospice - Medical Facility Condition: Serious Functional capacity at discharge: bed bound Overall status at discharge: other - Discharge Instructions Follow Up With: Kateryna Aldridge PHOTOLITHOGRAPHER [Primary Care Provider] - - Diet and Activity Activity: other Diet: other - VTE Reasons for not Prescribing Prophylaxis: Not indicated-Anticoagulated or INR therapeutic Documentation of Mechanical Device: Intermittent pneumatic compression device
[2017-06-07 08:58] LABS: CK Total (Ck Isoenzymes) 136 U/L (20-180)
[2017-06-07 08:59] LABS: CK Total (Ck Isoenzymes) 121 U/L (20-180)
[2017-06-07 09:02] LABS: CK Total (Ck Isoenzymes) 101 U/L (20-180)
--- NOTE | 2017-06-07 09:13 | Event Note ---
Date of Encounter: 06/07/17 Time of Encounter: 09:00 Discussed with son Yoni at bedside at length. Patient with very distressful day yesterday, and required escalation of medications to keep her comfortable. Currently receiving Fentanyl drip at 50mcg/hr and frequent Lorazepam. Patient will be discharged and readmitted to general inpatient hospice for intense symptom management.
[2017-06-07] MEDS: FentaNYL (PF) 1,000 MCG in 0.9 % Sodium Chloride 80 ML IVC SCH (11:10)
[2017-06-07] MEDS: Haloperidol Lactate 5 MG/ML VIAL IVP PRN (11:10)
--- NOTE | 2017-06-08 18:18 | Electrocardiograph Report ---
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
== END 2017-06-07 12:34 | disposition hospice, inpatient (51) | DRG 64 ==
LOC: EMEROO 23:05 → ICNU 06-02 01:27 → SUATTDRO 06-02 01:27 → ICNU 06-02 03:28 → 2ANU 06-05 20:34
PROVIDERS: ADMIT Internal Medicine; ATTEND Internal Medicine

== ENCOUNTER 2017-06-07 09:12 | Inpatient (IN) ==
[2017-06-07] MEDS ORDERED: OXYCODONE Oral CONC 10 MG/0.5 ML ORAL.SYG PO PRN (09:16)
[2017-06-07] MEDS ORDERED: Haloperidol Lactate 5 MG/ML VIAL IVP PRN (09:16)
[2017-06-07] MEDS ORDERED: Bisacodyl 10 MG RECTAL SUPPOSITORY RC PRN (09:16)
[2017-06-07] MEDS ORDERED: Acetaminophen 650 MG RECTAL SUPP RC PRN (09:20)
--- NOTE | 2017-06-07 10:11 | Palliative - Consult Note ---
Date of Encounter: 06/07/17 Time of Encounter: 09:30 - Assessment and Plan (1) Generalized pain Status: Acute Assessment and plan: Continue Fentanyl drip, currently at 50mcg and titrate for comfort as needed. Will increase breakthrough Oxycodone to 10mg every hour SL and monitor (2) Restlessness Status: Acute Assessment and plan: She has required frequent Lorazepam over the past 24 hours. Will schedule 2mg every 4 hours, and allow every 2 for breakthrough if needed. (3) Congestion of upper airway Status: Acute Assessment and plan: Continue scopolamine patch and atropine drops PRN. Family states much less secretions than yesterday. (4) Acute cerebral infarction Status: Acute (5) CVA (cerebral vascular accident) Status: Acute Qualifiers: CVA mechanism: embolism Precerebral and cerebral artery: middle cerebral artery Laterality of affected vessel: left Qualified Code(s): I63.412 - Cerebral infarction due to embolism of left middle cerebral artery (6) Left carotid artery occlusion Status: Acute (7) ST elevation myocardial infarction (STEMI) Status: Acute Qualifiers: Involved coronary artery: LAD coronary artery Qualified Code(s): I21.02 - ST elevation (STEMI) myocardial infarction involving left anterior descending coronary artery Palliative-CN HPI - Data of Consult Consult date: 06/07/17 Requesting Physician: Alex Meyers MD - Consult Narrative History of present illness: Ms. Mcgovern is a 81 year old unfortunate female who experienced an NSTEMI approximately 9 days ago - was brought to hospital and taken to laboratory worker for cardiac stent to LAD. She had uneventful course following stent placement and was discharged home on 06/01/2017. Later that evening, she became unresponsive while was helping to bathroom, and had some periods of apnea. EMS was summoned and she was intubated for airway protection. Evaluation after arrival to hospital demonstrated large left hemispheric MCA stroke. She was monitored in ICU and remained on ventilator. Follow up CT demonstrated edema around area of stroke and 2.5mm midline shift. Prior to this patient's hospitalization for NSTEMI, she had no chronic illness, and was active and independent. On Th/Fri, she was able to open eyes, move toes, and move left arm, but did not make any further neurological recovery. She was extubated Wednesday evening per family request and transitioned to comfort care. She is unable to eat or drink, unable to take Brilenta/ASA for new stent. Yesterday she required escalation of Fentanyl drip and frequent Lorazepam to keep her comfortable. Patient was discharged this am and readmitted as general inpt hospice for symptom control. CC: Alex Meyers MD Past Med Surg Social Fam HX - Past Medical History Medical history: coronary artery disease, myocardial infarction Psychiatric history: no psych history - Past Surgical History Surgical History: angioplasty/stent - Social History Smoking Status: Never smoker Smokeless Tobacco Status: No Alcohol use: none Drug use: none - Family History Mother Living Status: Hx Family Cardiac Disorders: Yes Father Living Status: Medications and Allergies Aspirin [Adult Aspirin Regimen] 81 mg PO DAILY #30 tablet. 06/01/17 [Rx] Carvedilol 3.125 mg PO BID #60 tab 06/01/17 [Rx] Ticagrelor [Brilinta] 90 mg PO BID #60 tablet 06/01/17 [Rx] 3 Allergy/AdvReac Type Severity Reaction Status Date / Time ezetimibe [From Zetia] AdvReac Cramping Verified 05/30/17 10:58 of the Muscles fenofibrate [From Tricor] AdvReac Cramping Verified 05/30/17 10:58 of the Muscles rosuvastatin [From Crestor] AdvReac Cramping Verified 05/30/17 10:58 of the Muscles simvastatin AdvReac Cramping Verified 05/30/17 10:58 of the Muscles ROS unobtainable: due to mental status Palliative Care-Exam - Constitutional General appearance: Present: average body habitus - Head Head Exam: Present: normal inspection, normocephalic - Respiratory Respiratory exam: Present: CTAB Additional comments: Irregular respirations with 10 sec periods of apnea at times - Cardiovascular Cardiovascular exam: Present: +S1, +S2 - GI/Abdominal Exam GI/Abdominal exam: Present: diminished bowel sounds, soft - Extremities Exam Extremities exam: Present: normal capillary refill, normal inspection - Neurological Exam Additional comments: Asleep with eyes open. Does become restless with assessment. Does not follow commands - Skin Skin exam: Present: dry, pallor Additional comments: Upper extremities cool to touch Palliative Quality Palliative Quality: Screen for Code Status: Yes, Screen for Goals of Care: Yes, Screen for Pain: Yes, If Pain Regimen Started, Initiate Bowel Regimen: Yes, Screen for Nausea/Vomitting: Yes Code Status: 06/07/17 09:16 Resuscitation Status: Active [RES] Routine Comment: Resuscitation Status: DNR-Comfort Care
[2017-06-07] MEDS: *HR* LORazepam 2 MG/ML VIAL IVP SCH ×4 (13:26→21:53)
[2017-06-07] MEDS: Scopolamine Patch 1.5 MG PATCH.TD72 TD SCH (13:30)
[2017-06-07] MEDS: FentaNYL (PF) 1,000 MCG in 0.9 % Sodium Chloride 80 ML IVC SCH (14:04)
[2017-06-07] MEDS: *HR* LORazepam 2 MG/ML VIAL IVP PRN ×2 (15:33→20:00)
[2017-06-08] MEDS: FentaNYL (PF) 1,000 MCG in 0.9 % Sodium Chloride 80 ML IVC SCH ×2 (00:43→17:46)
[2017-06-08] MEDS: *HR* LORazepam 2 MG/ML VIAL IVP SCH ×6 (02:32→21:56)
[2017-06-08] MEDS: *HR* LORazepam 2 MG/ML VIAL IVP PRN ×2 (07:57→15:03)
[2017-06-08] MEDS ORDERED: 0.9 % Sodium Chloride 500 ML ONE (09:27)
--- NOTE | 2017-06-08 09:37 | Palliative Progress Note ---
Date of Encounter: 06/08/17 Time of Encounter: 09:00 - Assessment and plan (1) Generalized pain Current Visit: No Status: Acute Assessment and plan: Continue Fentanyl drip - currently at 75mcg. Will titrate if needed. Currently comfortable. (2) Restlessness Current Visit: No Status: Acute Assessment and plan: Continue Lorazepam scheduled and PRN as needed. (3) Congestion of upper airway Current Visit: No Status: Acute Assessment and plan: Continue scopolamine patch/atropine drop (4) Acute cerebral infarction Current Visit: No Status: Acute (5) CVA (cerebral vascular accident) Current Visit: No Status: Acute Qualifiers: CVA mechanism: embolism Precerebral and cerebral artery: middle cerebral artery Laterality of affected vessel: left Qualified Code(s): I63.412 - Cerebral infarction due to embolism of left middle cerebral artery (6) Left carotid artery occlusion Current Visit: No Status: Acute (7) ST elevation myocardial infarction (STEMI) Current Visit: No Status: Resolved Qualifiers: Involved coronary artery: LAD coronary artery Qualified Code(s): I21.02 - ST elevation (STEMI) myocardial infarction involving left anterior descending coronary artery - Time Spent With Patient Total time spent is greater than 50% in coordination of care (as documented) at patient's floor/unit and/or counseling patient: 25 - 35 minutes - Subjective Interval history: Patient appears very comfortable - family at bedside. She had some periods of apnea yesterday, these appear to have subsided for now. Fentanyl drip remains at 75mcg/hr. - Constitutional General appearance: Present: no acute distress - Respiratory Respiratory exam: Present: decreased breath sounds, CTAB - Cardiovascular Cardiovascular exam: Present: +S1, +S2, tachycardia - GI/Abdominal GI/Abdominal exam: Present: distended, soft - Extremities Exam Extremities exam: Present: normal capillary refill, normal inspection Additional comments: Some generalized edema to upper and lower extremities - Neurological Exam Additional comments: Patient unresponsive to verbal/tactile stimuli. Does not follow commands. - Skin Skin exam: Present: dry, pallor, warm Palliative Quality Palliative Quality: Screen for Code Status: Yes, Screen for Goals of Care: Yes, Screen for Pain: Yes, If Pain Regimen Started, Initiate Bowel Regimen: Yes, Screen for Nausea/Vomitting: Yes Code Status: 06/07/17 09:16 Resuscitation Status: Active [RES] Routine Comment: Resuscitation Status: DNR-Comfort Care Consult Discharge Plan - Plan Referrals: Kateryna Aldridge, SIMBA [Primary Care Provider] -
--- NOTE | 2017-06-08 14:45 | Pallative History & Physical ---
Date of Encounter: 06/08/17 Time of Encounter: 09:45 Assessment and Plan (1) Counseling regarding advanced care planning and goals of care Current visit: No Status: Acute DNR comfort care. Patient has gone general inpatient hospice is currently receiving a fentanyl drip we will continue to use this for that reason the patient continues to be general inpatient hospice criteria. (2) CVA (cerebral vascular accident) Current visit: No Status: Acute Large CVA, is not able to take in sustenance and there is no artificial feeding plan for the patient. Therefore this is the hospice diagnosis. Qualifiers: CVA mechanism: embolism Precerebral and cerebral artery: middle cerebral artery Laterality of affected vessel: left Qualified Code(s): I63.412 - Cerebral infarction due to embolism of left middle cerebral artery (3) Difficulty clearing secretions Current visit: No Status: Acute Continue scopolamine patch and atropine drops. (4) Generalized pain Current visit: No Status: Acute Continue fentanyl drip treat as necessary. Currently at 75 g per hour Internal Medicine - H&P: HPI Admitted From: Intrahospital Transfer Plans for Post Hospital Care: Hospice - Home History of present illness: Ms. Mcgovern is a 81 year old female Came in the hospital after having had an in the 9 days prior to admission taken to catheter lab for to LAD. 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 She was extubated and transitioned to comfort care she is unable to eat or drink unable to take her R aspirin for her new stent required escalation of a fentanyl drip and family asked that the patient be transitioned to comfort care and can just kept comfortable. Patient is currently unresponsive to verbal P is comfortable at this time. She is on a fentanyl drip. Past Med Surg Social Fam HX - Past Medical History Medical history: coronary artery disease, myocardial infarction Psychiatric history: no psych history - Past Surgical History Surgical History: angioplasty/stent - Social History Smoking Status: Never smoker Smokeless Tobacco Status: No Alcohol use: none Drug use: none - Family History Mother Living Status: Hx Family Cardiac Disorders: Yes Father Living Status: Internal Medicine - H&P: Meds Aspirin [Adult Aspirin Regimen] 81 mg PO DAILY #30 tablet. 06/01/17 [Rx] Carvedilol 3.125 mg PO BID #60 tab 06/01/17 [Rx] Ticagrelor [Brilinta] 90 mg PO BID #60 tablet 06/01/17 [Rx] Nitroglycerin [Nitrostat] 0.4 mg PO Q5M PRN 06/07/17 [History] 3 Allergy/AdvReac Type Severity Reaction Status Date / Time ezetimibe [From Zetia] AdvReac Cramping Verified 05/30/17 10:58 of the Muscles fenofibrate [From Tricor] AdvReac Cramping Verified 05/30/17 10:58 of the Muscles rosuvastatin [From Crestor] AdvReac Cramping Verified 05/30/17 10:58 of the Muscles simvastatin AdvReac Cramping Verified 05/30/17 10:58 of the Muscles ROS unobtainable: due to mental status Palliative Care-Exam - Constitutional Vitals: Temp Pulse Resp BP Pulse Ox 97.5 F L 78 20 133/66 90 06/08/17 07:31 06/08/17 07:31 06/08/17 07:31 06/08/17 07:31 06/08/17 07:31 General appearance: Present: no acute distress - Head Head Exam: Present: normal inspection - Eye Eye exam: Present: normal appearance - Respiratory Respiratory exam: Present: decreased breath sounds - Cardiovascular Cardiovascular exam: Present: RRR - GI/Abdominal Exam GI/Abdominal exam: Present: diminished bowel sounds, soft. Absent: tenderness - Extremities Exam Extremities exam: Absent: pedal edema, tenderness - Neurological Exam Neurological exam: Present: altered - Psychiatric Psychiatric exam: Absent: agitated, anxious - Skin Skin exam: Present: dry, warm Palliative Quality Palliative Quality: Screen for Code Status: Yes, Screen for Goals of Care: Yes, Screen for Pain: Yes, If Pain Regimen Started, Initiate Bowel Regimen: Yes, Screen for Nausea/Vomitting: Yes Code Status: 06/07/17 09:16 Resuscitation Status: Active [RES] Routine Comment: Resuscitation Status: DNR-Comfort Care
--- NOTE | 2017-06-08 14:50 | Event Note ---
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 Start: 06/07/2017 Hospice benefit. In: +90 days Palliative performance scale: 20% History: She with history of coronary artery disease and now with a large left MCA stroke. The patient is unable to communicate or to take food or drink. No artificial feeding or duration is planned. Therefore I believe that These findings support a life expectancy of 6 months or less. I attest that I have compose the above narrative based on my review of the patient's medical records, and or on my examination of the patient. Alex Meyers M.D. Associate medical grade shoemaker. [facility]
[2017-06-09] MEDS: *HR* LORazepam 2 MG/ML VIAL IVP SCH ×3 (01:15→19:33)
[2017-06-09] MEDS: FentaNYL (PF) 1,000 MCG in 0.9 % Sodium Chloride 80 ML IVC SCH ×2 (01:27→08:17)
[2017-06-09] MEDS ORDERED: 0.9 % Sodium Chloride 500 ML ONE (06:30)
--- NOTE | 2017-06-09 09:22 | Palliative Progress Note ---
Date of Encounter: 06/09/17 Time of Encounter: 09:15 - Assessment and plan (1) Generalized pain Current Visit: No Status: Acute Assessment and plan: Fentanyl drip has been increased to 150mg/hr overnight. Appears quite comfortable at this time. Continue and monitor (2) Restlessness Current Visit: No Status: Acute Assessment and plan: Continues with scheduled Lorazepam and schedule Haloperidol. Monitor (3) Congestion of upper airway Current Visit: No Status: Acute Assessment and plan: Continue Scopolamine patch/Atropine PRN and Robinul. Daughter states Robinul has been more effective than atropine drops. 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 States she struggled with secretions/choking episode last night. REquired increase in Fentanyl drip to keep her comfortable. Mucous membranes pale, knees cool to touch with slight mottling. Blood pressure with significant decrease this am. - Constitutional General appearance: Present: no acute distress - Respiratory Additional comments: Respirations shallow and slightly irregular. - Cardiovascular Cardiovascular exam: Present: +S1, +S2 - GI/Abdominal GI/Abdominal exam: Present: diminished bowel sounds, distended, soft - Additional comments: Diez with dk yellow urine - Extremities Exam Additional comments: 2+ edema to bilateral upper extremities - Neurological Exam Additional comments: Unresponsive to verbal/tactile stimuli - Skin Skin exam: Present: dry, pallor Palliative Quality Palliative Quality: Screen for Code Status: Yes, Screen for Goals of Care: Yes, Screen for Pain: Yes, If Pain Regimen Started, Initiate Bowel Regimen: Yes, Screen for Nausea/Vomitting: Yes Code Status: 06/07/17 09:16 Resuscitation Status: Active [RES] Routine Comment: Resuscitation Status: DNR-Comfort Care Consult Discharge Plan - Plan Referrals: Kateryna Aldridge CNP [Primary Care Provider] -
[2017-06-09] MEDS ORDERED: FentaNYL (PF) 1,000 MCG in 0.9 % Sodium Chloride 80 ML IVC SCH (09:27)
[2017-06-09] MEDS ORDERED: Haloperidol Lactate 5 MG/ML VIAL IVP SCH (10:00)
--- NOTE | 2017-06-09 12:58 | Event Note ---
Date of Encounter: 06/09/17 Time of Encounter: 12:45 IV access has been lost - D/W family. Will try and avoid replacing IV as pt has minimal access. Patient currently moaning. Family emotional at bedside. Transition to Fentanyl patch - increase sublingual Oxycodone. Transition IV Lorazepam/Haldol to sublingual as well.
[2017-06-09] MEDS ORDERED: Haloperidol Oral Conc 10 MG/5 ML UDC PO PRN (12:59)
[2017-06-09] MEDS ORDERED: *HR* FentaNYL PATCH 75 MCG PATCH TD SCH (13:00)
[2017-06-09] MEDS: *HR* LORazepam Oral Conc 2 MG/ML SL SCH ×3 (13:02→22:37)
[2017-06-09] MEDS: OXYCODONE Oral CONC 10 MG/0.5 ML ORAL.SYG PO PRN ×4 (13:03→22:38)
[2017-06-09] MEDS: Atropine Sulfate 1% 40 DROP/2 ML BOTTLE SL PRN (22:43)
[2017-06-10] MEDS: *HR* LORazepam Oral Conc 2 MG/ML SL SCH ×6 (02:00→22:39)
[2017-06-10] MEDS: Scopolamine Patch 1.5 MG PATCH.TD72 TD SCH (08:26)
--- NOTE | 2017-06-10 09:24 | Palliative Progress Note ---
Date of Encounter: 06/10/17 Time of Encounter: 09:20 - Assessment and plan (1) Generalized pain Current Visit: No Status: Acute Assessment and plan: Continue Fentanyl 150mcg patch with Oxycodone for breakthrough if needed. Utilized Oxy x4 last 24 hours. Did not require during the night (2) Restlessness Current Visit: No Status: Acute Assessment and plan: Continue Lorazepam. Family believes that she is not requiring as much, but would still like it occasionally - discussed will change schedule to every 6 hours and continue breakthrough doses if needed. (3) Congestion of upper airway Current Visit: No Status: Acute (4) Acute cerebral infarction Current Visit: No Status: Acute (5) CVA (cerebral vascular accident) Current Visit: No Status: Acute Qualifiers: CVA mechanism: embolism Precerebral and cerebral artery: middle cerebral artery Laterality of affected vessel: left Qualified Code(s): I63.412 - Cerebral infarction due to embolism of left middle cerebral artery (6) Left carotid artery occlusion Current Visit: No Status: Acute (7) ST elevation myocardial infarction (STEMI) Current Visit: No Status: Resolved Qualifiers: Involved coronary artery: LAD coronary artery Qualified Code(s): I21.02 - ST elevation (STEMI) myocardial infarction involving left anterior descending coronary artery (8) Counseling regarding advanced care planning and goals of care Current Visit: No Status: Acute Assessment and plan: Began discussion with family regarding if things continue to be stable, will require planning to either home or nursing facility. She has tolerated transition off IV meds quite well. Will continue to monitor. Patient's son will be returning home from [place] and they will begin discussions. - Time Spent With Patient Total time spent is greater than 50% in coordination of care (as documented) at patient's floor/unit and/or counseling patient: 25 - 35 minutes - Subjective Interval history: Patient appears very comfortable - family at bedside. States she had very peaceful night and tolerated transition to Fentanyl patch. The family states she has been so comfortable, they have refused a couple of doses of Ativan. They state she does appear to have a little trouble with the volume of that medication. - Constitutional General appearance: Present: no acute distress - Respiratory Respiratory exam: Present: decreased breath sounds, CTAB - Cardiovascular Cardiovascular exam: Present: +S1, +S2 - GI/Abdominal GI/Abdominal exam: Present: hypoactive bowel sounds, soft - Additional comments: Scant amount dk yellow urine in reis - Extremities Exam Extremities exam: Present: normal capillary refill, normal inspection - Neurological Exam Neurological exam: Present: alert Additional comments: Unresponsive to verbal /tactile stimulus - Skin Skin exam: Present: dry, pallor, warm Palliative Quality Palliative Quality: Screen for Code Status: Yes, Screen for Goals of Care: Yes, Screen for Pain: Yes, If Pain Regimen Started, Initiate Bowel Regimen: Yes, Screen for Nausea/Vomitting: Yes Code Status: 06/07/17 09:16 Resuscitation Status: Active [RES] Routine Comment: Resuscitation Status: DNR-Comfort Care Consult Discharge Plan - Plan Referrals: Kateryna Aldridge CEO [employer] FOUNDER [Primary Care Provider] -
[2017-06-10] MEDS: OXYCODONE Oral CONC 10 MG/0.5 ML ORAL.SYG PO PRN ×2 (15:25→20:06)
[2017-06-10] MEDS: *HR* LORazepam Oral Conc 2 MG/ML SL PRN ×2 (18:28→20:34)
[2017-06-11] MEDS: OXYCODONE Oral CONC 10 MG/0.5 ML ORAL.SYG PO PRN ×6 (04:30→22:26)
[2017-06-11] MEDS: *HR* LORazepam Oral Conc 2 MG/ML SL SCH ×5 (05:07→22:26)
--- NOTE | 2017-06-11 10:22 | Palliative Progress Note ---
Date of Encounter: 06/11/17 Time of Encounter: 09:40 - Assessment and plan (1) Generalized pain Current Visit: No Status: Acute Assessment and plan: Continue Fentanyl patch for comfort with Oxycodone for breakthrough. Required 3 doses last 24 hours. Monitor (2) Restlessness Current Visit: No Status: Acute Assessment and plan: Continue Scheduled Lorazepam every 6 hours with PRN doses as needed. Haloperidol PRN. (3) Congestion of upper airway Current Visit: No Status: Acute (4) Acute cerebral infarction Current Visit: No Status: Acute (5) CVA (cerebral vascular accident) Current Visit: No Status: Acute Qualifiers: CVA mechanism: embolism Precerebral and cerebral artery: middle cerebral artery Laterality of affected vessel: left Qualified Code(s): I63.412 - Cerebral infarction due to embolism of left middle cerebral artery (6) Left carotid artery occlusion Current Visit: No Status: Acute (7) Counseling regarding advanced care planning and goals of care Current Visit: No Status: Acute - Time Spent With Patient Total time spent is greater than 50% in coordination of care (as documented) at patient's floor/unit and/or counseling patient: 25 - 35 minutes - Subjective Interval history: Patient continues to remain quite comfortable. Family remains at bedside. Vitals stable. No acute changes. - Constitutional General appearance: Present: no acute distress - Respiratory Respiratory exam: Present: decreased breath sounds, CTAB - Cardiovascular Cardiovascular exam: Present: +S1, +S2 - GI/Abdominal GI/Abdominal exam: Present: diminished bowel sounds, soft - Additional comments: Diez catheter in place - Extremities Exam Extremities exam: Present: normal capillary refill, normal inspection - Neurological Exam Neurological exam: Present: alert Additional comments: Oriented name/place. Answers most questions appropriately - Skin Skin exam: Present: dry, warm Palliative Quality Palliative Quality: Screen for Code Status: Yes, Screen for Goals of Care: Yes, Screen for Pain: Yes, If Pain Regimen Started, Initiate Bowel Regimen: Yes, Screen for Nausea/Vomitting: Yes Code Status: 06/07/17 09:16 Resuscitation Status: Active [RES] Routine Comment: Resuscitation Status: DNR-Comfort Care Consult Discharge Plan - Plan Referrals: Kateryna Aldridge CNP [Primary Care Provider] - 06/16/17 10:30 am
[2017-06-11] MEDS: *HR* LORazepam Oral Conc 2 MG/ML SL PRN ×3 (14:24→20:30)
[2017-06-12] MEDS: OXYCODONE Oral CONC 10 MG/0.5 ML ORAL.SYG PO PRN ×8 (00:32→22:25)
[2017-06-12] MEDS: *HR* LORazepam Oral Conc 2 MG/ML SL PRN ×3 (00:32→19:44)
[2017-06-12] MEDS: *HR* LORazepam Oral Conc 2 MG/ML SL SCH ×4 (04:12→22:25)
--- NOTE | 2017-06-12 08:29 | Palliative Progress Note ---
Date of Encounter: 06/12/17 Time of Encounter: 07:20 - Assessment and plan (1) Counseling regarding advanced care planning and goals of care Current Visit: No Status: Acute Assessment and plan: DNR comfort care. IV has been stopped due to the fact that stopped working, patient is currently comfortable appear to be declining quiring large numbers of medications will adjust fentanyl patch today as there is continuing need for adjustment of medications she continues to qualify for general inpatient hospice care on that basis. (2) CVA (cerebral vascular accident) Current Visit: No Status: Acute Assessment and plan: Large CVA, is not able to take in sustenance and there is no artificial feeding plan for the patient. Therefore this is the hospice diagnosis. No changes today. Qualifiers: CVA mechanism: embolism Precerebral and cerebral artery: middle cerebral artery Laterality of affected vessel: left Qualified Code(s): I63.412 - Cerebral infarction due to embolism of left middle cerebral artery (3) Difficulty clearing secretions Current Visit: No Status: Acute Assessment and plan: Continue scopolamine patch and atropine drops. Patient continues to have a great deal of secretions. Patient does not have IV access a row but all is not available, however will try some sublingual Levsin and see if that helps. (4) Generalized pain Current Visit: No Status: Acute Assessment and plan: Continue oral meds seem to be effective, however the patient choosing a large amount of them. 6 doses of 15 mg oxycodone her total of 90 mg oxycodone as equaled 135 oral morphine equivalents. This is in addition to a fentanyl patch that she already has. I am not sure how well the fentanyl is working for her, but I will go up on the patch if that decreases the amount of oxycodone that she is requiring. There is currently no liquid methadone available at the hospital, therefore this cannot be considered at this time. Patient is currently on 150 mics Duragesic patch and has been on this for re- days now. The amount of oxycodone being used is equivalent to another 67 mics of fentanyl decrease that to 25 and increase the patch up to 175. - Time Spent With Patient Total time spent is greater than 50% in coordination of care (as documented) at patient's floor/unit and/or counseling patient: - Subjective Interval history: Responsive to verbal, increased oral secretions per family are all appears comfortable. periods of apnea continue - Constitutional General appearance: Present: no acute distress - Respiratory Respiratory exam: Present: decreased breath sounds - Cardiovascular Cardiovascular exam: Present: irregular rhythm - GI/Abdominal GI/Abdominal exam: Present: hypoactive bowel sounds, soft. Absent: tenderness - Extremities Exam Extremities exam: Present: normal inspection. Absent: pedal edema, tenderness - Neurological Exam Neurological exam: Present: altered - Psychiatric Psychiatric exam: Absent: agitated, anxious - Skin Skin exam: Present: dry, warm Palliative Quality Palliative Quality: Screen for Code Status: Yes, Screen for Goals of Care: Yes, Screen for Pain: Yes, If Pain Regimen Started, Initiate Bowel Regimen: Yes, Screen for Nausea/Vomitting: Yes Code Status: 06/07/17 09:16 Resuscitation Status: Active [RES] Routine Comment: Resuscitation Status: DNR-Comfort Care Consult Discharge Plan - Plan Referrals: Kateryna Aldridge CNP [Primary Care Provider] - 06/16/17 10:30 am
[2017-06-12] MEDS ORDERED: *HR* FentaNYL PATCH 75 MCG PATCH TD SCH (08:39)
[2017-06-12] MEDS: Hyoscyamine SL 0.125 MG TAB.SUBL SL PRN (09:29)
[2017-06-12] MEDS: FENTANYL TD SCH (10:15)
[2017-06-12] MEDS: Atropine Sulfate 1% 40 DROP/2 ML BOTTLE SL PRN (16:21)
[2017-06-13] MEDS: *HR* LORazepam Oral Conc 2 MG/ML SL SCH ×4 (04:06→22:08)
[2017-06-13] MEDS: OXYCODONE Oral CONC 10 MG/0.5 ML ORAL.SYG PO PRN ×4 (04:07→22:09)
--- NOTE | 2017-06-13 07:47 | Palliative Progress Note ---
Date of Encounter: 06/13/17 Time of Encounter: 07:05 - Assessment and plan (1) Counseling regarding advanced care planning and goals of care Current Visit: No Status: Acute Assessment and plan: DNR comfort care. IV has been stopped due to the fact that stopped working, patient is currently comfortable appear to be declining quiring large numbers of medications will adjust fentanyl patch today as there is continuing need for adjustment of medications she continues to qualify for general inpatient hospice care on that basis. Medication adjustment yesterday appears to be appropriate. We will watch today. (2) CVA (cerebral vascular accident) Current Visit: No Status: Acute Assessment and plan: Large CVA, is not able to take in sustenance and there is no artificial feeding plan for the patient. Therefore this is the hospice diagnosis. No changes today. Qualifiers: CVA mechanism: embolism Precerebral and cerebral artery: middle cerebral artery Laterality of affected vessel: left Qualified Code(s): I63.412 - Cerebral infarction due to embolism of left middle cerebral artery (3) Difficulty clearing secretions Current Visit: No Status: Acute Assessment and plan: Continue scopolamine patch and atropine drops. Patient continues to have a great deal of secretions. Patient does not have IV access a row but all is not available, however will try some sublingual Levsin and see if that helps. seems to be helping on current meds (4) Generalized pain Current Visit: No Status: Acute Assessment and plan: Continue oral meds seem to be effective, however the patient choosing a large amount of them. 6 doses of 15 mg oxycodone her total of 90 mg oxycodone as equaled 135 oral morphine equivalents. This is in addition to a fentanyl patch that she already has. I am not sure how well the fentanyl is working for her, but I will go up on the patch if that decreases the amount of oxycodone that she is requiring. There is currently no liquid methadone available at the hospital, therefore this cannot be considered at this time. Patient is currently on 150 mics Duragesic patch and has been on this for re- days now. The amount of oxycodone being used is equivalent to another 67 mics of fentanyl decrease that to 25 and increase the patch up to 175. - Time Spent With Patient Total time spent is greater than 50% in coordination of care (as documented) at patient's floor/unit and/or counseling patient: - Subjective Interval history: Improved since dedication adjustment yesterday. Requiring less when necessary' s. - Constitutional General appearance: Present: no acute distress - Respiratory Respiratory exam: Present: decreased breath sounds - Cardiovascular Cardiovascular exam: Present: irregular rhythm - GI/Abdominal GI/Abdominal exam: Present: hypoactive bowel sounds, soft. Absent: tenderness - Extremities Exam Extremities exam: Present: normal inspection. Absent: pedal edema, tenderness - Neurological Exam Neurological exam: Present: altered - Psychiatric Psychiatric exam: Absent: agitated, anxious - Skin Skin exam: Present: dry, warm Palliative Quality Palliative Quality: Screen for Code Status: Yes, Screen for Goals of Care: Yes, Screen for Pain: Yes, If Pain Regimen Started, Initiate Bowel Regimen: Yes, Screen for Nausea/Vomitting: Yes Code Status: 06/07/17 09:16 Resuscitation Status: Active [RES] Routine Comment: Resuscitation Status: DNR-Comfort Care Consult Discharge Plan - Plan Referrals: Kateryna Aldridge CNP [Primary Care Provider] - 06/16/17 10:30 am
[2017-06-13] MEDS: Scopolamine Patch 1.5 MG PATCH.TD72 TD SCH (09:35)
[2017-06-13] MEDS: Atropine Sulfate 1% 40 DROP/2 ML BOTTLE SL PRN ×2 (09:41→15:30)
[2017-06-14] MEDS: *HR* LORazepam Oral Conc 2 MG/ML SL PRN (02:02)
[2017-06-14] MEDS: OXYCODONE Oral CONC 10 MG/0.5 ML ORAL.SYG PO PRN ×5 (02:02→21:40)
[2017-06-14] MEDS: *HR* LORazepam Oral Conc 2 MG/ML SL SCH ×4 (04:12→21:29)
[2017-06-14] MEDS: Atropine Sulfate 1% 40 DROP/2 ML BOTTLE SL PRN ×2 (10:10→21:41)
--- NOTE | 2017-06-14 11:49 | Palliative Progress Note ---
Date of Encounter: 06/14/17 Time of Encounter: 09:30 - Assessment and plan (1) Generalized pain Current Visit: No Status: Acute Assessment and plan: Continue Fentanyl patch 175mcg with Oxycodone for breakthrough pain. Has utilized x5 last 24 hours (2) Restlessness Current Visit: No Status: Acute Assessment and plan: Continue Lorazepam as scheduled with PRN doses as needed. 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 Family at bedside. - Constitutional General appearance: Present: no acute distress - Respiratory Additional comments: + upper airway secretions - Cardiovascular Cardiovascular exam: Present: +S1, +S2 - GI/Abdominal GI/Abdominal exam: Present: normal bowel sounds, soft - Additional comments: Urine dark lizett with sediment - Extremities Exam Extremities exam: Present: normal capillary refill, normal inspection - Neurological Exam Additional comments: Patient unresponsive. No response to verbal or tactile stimuli - Skin Skin exam: Present: dry, pallor, warm Palliative Quality Palliative Quality: Screen for Code Status: Yes, Screen for Goals of Care: Yes, Screen for Pain: Yes, If Pain Regimen Started, Initiate Bowel Regimen: Yes, Screen for Nausea/Vomitting: Yes Code Status: 06/07/17 09:16 Resuscitation Status: Active [RES] Routine Comment: Resuscitation Status: DNR-Comfort Care Consult Discharge Plan - Plan Referrals: Kateryna Aldridge CNP [Primary Care Provider] - 06/16/17 10:30 am
[2017-06-15] MEDS: OXYCODONE Oral CONC 10 MG/0.5 ML ORAL.SYG PO PRN ×3 (04:11→22:34)
[2017-06-15] MEDS: *HR* LORazepam Oral Conc 2 MG/ML SL SCH ×4 (04:11→22:34)
[2017-06-15] MEDS: Atropine Sulfate 1% 40 DROP/2 ML BOTTLE SL PRN ×4 (04:12→22:37)
--- NOTE | 2017-06-15 09:11 | Palliative Progress Note ---
Date of Encounter: 06/15/17 Time of Encounter: 08:50 - Assessment and plan (1) Generalized pain Current Visit: No Status: Acute Assessment and plan: Continue Fentanyl patch and Oxycodone for breakthrough pain. Has utilized x4 last 24 hours (2) Restlessness Current Visit: No Status: Acute Assessment and plan: Continue Lorazepam as order with PRN doses as needed. Has utilized 1 extra breakthough dose last 24 hours (3) Congestion of upper airway Current Visit: No Status: Acute Assessment and plan: Continue Scopolamine patch and Atropine PRN. (4) Acute cerebral infarction Current Visit: No Status: Acute (5) CVA (cerebral vascular accident) Current Visit: No Status: Acute Qualifiers: CVA mechanism: embolism Precerebral and cerebral artery: middle cerebral artery Laterality of affected vessel: left Qualified Code(s): I63.412 - Cerebral infarction due to embolism of left middle cerebral artery (6) Left carotid artery occlusion Current Visit: No Status: Acute (7) Counseling regarding advanced care planning and goals of care Current Visit: No Status: Acute - Time Spent With Patient Total time spent is greater than 50% in coordination of care (as documented) at patient's floor/unit and/or counseling patient: 25 - 35 minutes - Subjective Interval history: Patient appears to be resting comfortably. Daughter at bedside. Vital signs remain fairly stable - blood pressure little lower this am. Still with some urine output. - Constitutional General appearance: Present: no acute distress - Respiratory Respiratory exam: Present: decreased breath sounds, CTAB Additional comments: + upper airway secretions. 15-20 second periods of apnea noted. - Cardiovascular Cardiovascular exam: Present: +S1, +S2 - GI/Abdominal GI/Abdominal exam: Present: normal bowel sounds, soft - Additional comments: Diez with cloudy lizett urine with sediment - Extremities Exam Extremities exam: Present: normal capillary refill, normal inspection - Neurological Exam Additional comments: Unresponsive to tactile/verbal stimuli - Skin Skin exam: Present: dry, pallor, warm Palliative Quality Palliative Quality: Screen for Code Status: Yes, Screen for Goals of Care: Yes, Screen for Pain: Yes, If Pain Regimen Started, Initiate Bowel Regimen: Yes, Screen for Nausea/Vomitting: Yes Code Status: 06/07/17 09:16 Resuscitation Status: Active [RES] Routine Comment: Resuscitation Status: DNR-Comfort Care Consult Discharge Plan - Plan Referrals: Kateryna Aldridge, SIMBA [Primary Care Provider] - 06/16/17 10:30 am
[2017-06-15] MEDS: FENTANYL TD SCH (10:10)
[2017-06-16] MEDS: OXYCODONE Oral CONC 10 MG/0.5 ML ORAL.SYG PO PRN ×4 (04:22→23:50)
[2017-06-16] MEDS: *HR* LORazepam Oral Conc 2 MG/ML SL SCH ×3 (04:23→17:23)
--- NOTE | 2017-06-16 09:06 | Palliative Progress Note ---
Date of Encounter: 06/16/17 Time of Encounter: 09:00 - Assessment and plan (1) Generalized pain Current Visit: No Status: Acute Assessment and plan: Continue current management with Fentanyl patch at 175 mcg and Oxycodone for breakthrough. Has required x3 last 24 hours. Monitor. (2) Restlessness Current Visit: No Status: Acute Assessment and plan: Continue scheduled Lorazepam with PRN doses if needed. Has not required last 24 hours. (3) Congestion of upper airway Current Visit: No Status: Acute (4) Acute cerebral infarction Current Visit: No Status: Acute (5) CVA (cerebral vascular accident) Current Visit: No Status: Acute Qualifiers: CVA mechanism: embolism Precerebral and cerebral artery: middle cerebral artery Laterality of affected vessel: left Qualified Code(s): I63.412 - Cerebral infarction due to embolism of left middle cerebral artery (6) Left carotid artery occlusion Current Visit: No Status: Acute (7) Counseling regarding advanced care planning and goals of care Current Visit: No Status: Acute Assessment and plan: Patient with likely terminal fevers, respirations very shallow, more hypoxic. Family informed that she is likely close to passing away. Verbalized understanding. Emotional support given. Their railroad firer has been visiting daily. - Time Spent With Patient Total time spent is greater than 50% in coordination of care (as documented) at patient's floor/unit and/or counseling patient: 25 - 35 minutes - Subjective Interval history: Patient with fever 101.8 this am. Respirations shallow. Family at bedside. She appears more pale in color. Oxygen saturations lower. - Constitutional General appearance: Present: no acute distress - Respiratory Additional comments: Respirations shallow with some apneic periods. Lungs fairly clear - Cardiovascular Cardiovascular exam: Present: +S1, +S2 - GI/Abdominal GI/Abdominal exam: Present: diminished bowel sounds, distended, soft - Additional comments: Diez with dk lizett urine with sediment - Extremities Exam Extremities exam: Present: normal capillary refill, normal inspection - Neurological Exam Additional comments: Unresponsive to verbal and tactile stimuli - Skin Skin exam: Present: dry, pallor, warm Palliative Quality Palliative Quality: Screen for Code Status: Yes, Screen for Goals of Care: Yes, Screen for Pain: Yes, If Pain Regimen Started, Initiate Bowel Regimen: Yes, Screen for Nausea/Vomitting: Yes Code Status: 06/07/17 09:16 Resuscitation Status: Active [RES] Routine Comment: Resuscitation Status: DNR-Comfort Care Consult Discharge Plan - Plan Referrals: Kateryna Aldridge CNP [Primary Care Provider] - 06/16/17 10:30 am
[2017-06-16] MEDS: Scopolamine Patch 1.5 MG PATCH.TD72 TD SCH (09:40)
[2017-06-16] MEDS: Atropine Sulfate 1% 40 DROP/2 ML BOTTLE SL PRN (12:13)
[2017-06-17] MEDS: *HR* LORazepam Oral Conc 2 MG/ML SL SCH ×5 (00:14→22:16)
[2017-06-17] MEDS: OXYCODONE Oral CONC 10 MG/0.5 ML ORAL.SYG PO PRN ×7 (00:22→22:20)
[2017-06-17] MEDS: Atropine Sulfate 1% 40 DROP/2 ML BOTTLE SL PRN ×2 (05:27→09:52)
--- NOTE | 2017-06-17 09:14 | Palliative Progress Note ---
Date of Encounter: 06/17/17 Time of Encounter: 07:10 - Assessment and plan (1) Counseling regarding advanced care planning and goals of care Current Visit: No Status: Acute Assessment and plan: DNR comfort care. IV has been stopped due to the fact that stopped working, patient is currently comfortable appear to be declining quiring large numbers of medications will adjust fentanyl patch today as there is continuing need for adjustment of medications she continues to qualify for general inpatient hospice care on that basis. The patient is having intermittent terminal fevers at this time, at least she is without fever. Patient is also still requiring fairly frequent when necessary medications in addition to her fentanyl patch. Believe the patient is fairly close to passing and is probably not stable for transport in any case she is still requiring more care than the family can , then hospice has elder provide and certainly more care the patient still meets criteria for general inpatient hospice. I have told the family were taking this on the day by day basis. Believe that we will require today and tomorrow to make sure everything is stable if the patient survives the weekend we will definitely need to look at changing status next week. Family is now aware of this. (2) CVA (cerebral vascular accident) Current Visit: No Status: Acute Assessment and plan: Large CVA, is not able to take in sustenance and there is no artificial feeding plan for the patient. Therefore this is the hospice diagnosis. No changes today. No changes today. Qualifiers: CVA mechanism: embolism Precerebral and cerebral artery: middle cerebral artery Laterality of affected vessel: left Qualified Code(s): I63.412 - Cerebral infarction due to embolism of left middle cerebral artery (3) Difficulty clearing secretions Current Visit: No Status: Acute Assessment and plan: Continue scopolamine patch and atropine drops. Patient continues to have a great deal of secretions. Patient does not have IV access a row but all is not available, however will try some sublingual Levsin and see if that helps. seems to be helping on current meds Levsin is continuing to be effective. No other changes are anticipated. (4) Generalized pain Current Visit: No Status: Acute Assessment and plan: Continue oral meds seem to be effective, however the patient choosing a large amount of them. 6 doses of 15 mg oxycodone her total of 90 mg oxycodone as equaled 135 oral morphine equivalents. This is in addition to a fentanyl patch that she already has. I am not sure how well the fentanyl is working for her, but I will go up on the patch if that decreases the amount of oxycodone that she is requiring. There is currently no liquid methadone available at the hospital, therefore this cannot be considered at this time. Patient is currently on 150 mics Duragesic patch and has been on this for re- days now. The amount of oxycodone being used is equivalent to another 67 mics of fentanyl decrease that to 25 and increase the patch up to 175. Continue to watch. I will not increase the patch today. Perhaps tomorrow. - Time Spent With Patient Total time spent is greater than 50% in coordination of care (as documented) at patient's floor/unit and/or counseling patient: - Subjective Interval history: pt resting comfortably this am did have some episodes of increased stenosis last night per the family. - Constitutional General appearance: Present: no acute distress - Respiratory Respiratory exam: Present: decreased breath sounds - Cardiovascular Cardiovascular exam: Present: RRR - GI/Abdominal GI/Abdominal exam: Present: hypoactive bowel sounds, soft. Absent: tenderness - Extremities Exam Extremities exam: Absent: pedal edema, tenderness - Neurological Exam Neurological exam: Present: altered - Psychiatric Psychiatric exam: Absent: agitated, anxious - Skin Skin exam: Present: dry, warm Palliative Quality Palliative Quality: Screen for Code Status: Yes, Screen for Goals of Care: Yes, Screen for Pain: Yes, If Pain Regimen Started, Initiate Bowel Regimen: Yes, Screen for Nausea/Vomitting: Yes Code Status: 06/07/17 09:16 Resuscitation Status: Active [RES] Routine Comment: Resuscitation Status: DNR-Comfort Care Consult Discharge Plan - Plan Referrals: Kateryna Aldridge CNP [Primary Care Provider] - 06/16/17 10:30 am
[2017-06-18] MEDS: *HR* LORazepam Oral Conc 2 MG/ML SL SCH ×4 (04:20→22:15)
[2017-06-18] MEDS: OXYCODONE Oral CONC 10 MG/0.5 ML ORAL.SYG PO PRN ×4 (04:20→22:16)
[2017-06-18] MEDS ORDERED: *HR* FentaNYL PATCH 100 MCG PATCH TD SCH (09:34)
--- NOTE | 2017-06-18 09:37 | Palliative Progress Note ---
Date of Encounter: 06/18/17 Time of Encounter: 09:10 - Assessment and plan (1) Generalized pain Current Visit: No Status: Acute Assessment and plan: Family states that she has been choking with SL meds. She has required Oxycodone for breakthrough x5 last 24 hours. Will increase Fentanyl patch to 200mcg/hr and monitor. Family hoping this will decrease need for oral meds (2) Restlessness Current Visit: No Status: Acute Assessment and plan: Continue Lorazepam as previously ordered and monitor (3) Congestion of upper airway Current Visit: No Status: Acute (4) Acute cerebral infarction Current Visit: No Status: Acute (5) CVA (cerebral vascular accident) Current Visit: No Status: Acute Qualifiers: CVA mechanism: embolism Precerebral and cerebral artery: middle cerebral artery Laterality of affected vessel: left Qualified Code(s): I63.412 - Cerebral infarction due to embolism of left middle cerebral artery (6) Left carotid artery occlusion Current Visit: No Status: Acute (7) Counseling regarding advanced care planning and goals of care Current Visit: No Status: Acute - Time Spent With Patient Total time spent is greater than 50% in coordination of care (as documented) at patient's floor/unit and/or counseling patient: 25 - 35 minutes - Subjective Interval history: Patient resting quietly. Family at bedside. Respirations shallow. Family at bedside. Family reports that she has been choking on SL meds and required some suctioning. - Constitutional General appearance: Present: no acute distress - Respiratory Additional comments: Shallow respirations. Occasional apneic periods. + upper airway secretions - Cardiovascular Cardiovascular exam: Present: +S1, +S2, tachycardia - GI/Abdominal GI/Abdominal exam: Present: normal bowel sounds, soft - Additional comments: Diez with small amount lizett urine with sediment - Extremities Exam Extremities exam: Present: normal capillary refill, normal inspection - Neurological Exam Additional comments: Unresponsive to verbal and tactile stimuli - Skin Skin exam: Present: dry, pallor, warm Palliative Quality Palliative Quality: Screen for Code Status: Yes, Screen for Goals of Care: Yes, Screen for Pain: Yes, If Pain Regimen Started, Initiate Bowel Regimen: Yes, Screen for Nausea/Vomitting: Yes Code Status: 06/07/17 09:16 Resuscitation Status: Active [RES] Routine Comment: Resuscitation Status: DNR-Comfort Care Consult Discharge Plan - Plan Referrals: Kateryna Aldridge, SIMBA [Primary Care Provider] - 06/16/17 10:30 am (patient is GIP )
[2017-06-19] MEDS: OXYCODONE Oral CONC 10 MG/0.5 ML ORAL.SYG PO PRN ×3 (04:28→09:11)
[2017-06-19] MEDS: *HR* LORazepam Oral Conc 2 MG/ML SL SCH ×3 (04:28→15:13)
[2017-06-19] MEDS: *HR* LORazepam Oral Conc 2 MG/ML SL PRN (07:14)
[2017-06-19] MEDS: Hyoscyamine SL 0.125 MG TAB.SUBL SL PRN (07:15)
[2017-06-19 09:10] VITALS: BP 123/75
[2017-06-19] MEDS: Scopolamine Patch 1.5 MG PATCH.TD72 TD SCH (09:10)
[2017-06-19] MEDS ORDERED: OXYCODONE Oral CONC 10 MG/0.5 ML ORAL.SYG PO PRN (09:29)
--- NOTE | 2017-06-19 09:31 | Palliative Progress Note ---
Date of Encounter: 06/19/17 Time of Encounter: 09:30 - Assessment and plan (1) Generalized pain Current Visit: No Status: Acute Assessment and plan: Continue Fentanyl patch - this was increased to 200mcg yesterday. Still is still moaning despite 2 recent doses of Oxycodone 15mg. D/W family - will increase to 20mg and see if this makes her more comfortable (2) Restlessness Current Visit: No Status: Acute Assessment and plan: Continue Lorazepam as ordered and monitor (3) Congestion of upper airway Current Visit: No Status: Acute Assessment and plan: Continue current management with scopolamine, atropine, and Levsin PRN. (4) Acute cerebral infarction Current Visit: No Status: Acute (5) CVA (cerebral vascular accident) Current Visit: No Status: Acute Qualifiers: CVA mechanism: embolism Precerebral and cerebral artery: middle cerebral artery Laterality of affected vessel: left Qualified Code(s): I63.412 - Cerebral infarction due to embolism of left middle cerebral artery (6) Left carotid artery occlusion Current Visit: No Status: Acute (7) Counseling regarding advanced care planning and goals of care Current Visit: No Status: Acute - Time Spent With Patient Total time spent is greater than 50% in coordination of care (as documented) at patient's floor/unit and/or counseling patient: 25 - 35 minutes - Subjective Interval history: Patient with moaning respirations at present - family at bedside. States it started earlier this am and worsened when they had to clean and turn her. Vitals remains fairly stable - some intermittent fevers, oxygen saturations 70' s-80's. - Constitutional General appearance: Present: mild distress - Respiratory Additional comments: Shallow respiration with accessory muscle use. + upper airway secretions. - Cardiovascular Cardiovascular exam: Present: +S1, +S2 - GI/Abdominal GI/Abdominal exam: Present: hypoactive bowel sounds, soft - Additional comments: Still with some urine output. Urine cloudy lizett - Extremities Exam Extremities exam: Present: normal capillary refill, normal inspection - Neurological Exam Additional comments: Moaning occasionally - does not respond to verbal or tactile stimuli. - Skin Skin exam: Present: dry, pallor, warm Palliative Quality Palliative Quality: Screen for Code Status: Yes, Screen for Goals of Care: Yes, Screen for Pain: Yes, If Pain Regimen Started, Initiate Bowel Regimen: Yes, Screen for Nausea/Vomitting: Yes Code Status: 06/07/17 09:16 Resuscitation Status: Active [RES] Routine Comment: Resuscitation Status: DNR-Comfort Care Consult Discharge Plan - Plan Referrals: Kateryna Aldridge CNP [Primary Care Provider] - 06/16/17 10:30 am (patient is GIP )
[2017-06-19] MEDS: Atropine Sulfate 1% 40 DROP/2 ML BOTTLE SL PRN (10:48)
--- NOTE | 2017-06-20 09:34 | Death Note ---
Discharge Sum: Summary - Date and Time Date of admission: 06/07/17 12:40 Date of : 06/19/17 Time of : 17:19 - Summary Details: Patient was in hospital under a general inpatient stay after having a STEMI a few weeks ago with heart cath and stent placement, was discharged, and then suffered a massive stroke at home. She was liberated from the ventilator after family decided that they did not believe she would want ongoing life sustaining measures, and artificial nutrition if she were not expected to make a meaningful recovery. She required frequent medications for comfort, and with family at bedside on 06/19/17 at 1719. - Additional Data Confirmation of as documented by pronouncing clinician: no pulse, no respirations, no heart sounds Family: at bedside Attending physician: Alex Meyers MD Was code activated?: No Autopsy requested?: No Hospice patient?: Yes Discharge Sum: Diag - PCOD Probable Cause of : Respiratory arrest Discharge Sum: Prov - Provider Primary care physician: Kateryna Aldridge CNP Admitting clinician: Alex Meyers Consults: 06/07/17 09:16 Consult to Palliative Care [CONS] Routine Comment: Consulting Provider: Palliative Care Shaina Reason for Consult: General inpt hospice Time Notified: 09:00 Call Completed: No
== END 2017-06-19 17:20 | disposition expired | DRG 951 ==
LOC: 2ANU 12:40
PROVIDERS: ADMIT Family Medicine Hospice and Palliative Medicine; ATTEND Family Medicine Hospice and Palliative Medicine